=== PATIENT | female | born 1960 | race Caucasian/White ===

== ENCOUNTER → 2016-11-29 | Outpatient (CLI) | payer OTHER ==
[~2016-11-29] MED LIST: CALC1TAB10 PO; EPP3/2 IM; GLIP-171 PO; LORA-741 PO; LXP10 PO; METF-384 PO; MULTTAB58 PO; NATE1TAB PO; OMEG12006 PO; SIMV-150 PO
[2016-11-29 12:59] LABS: ESTIMATED AVERAGE GLUCOSE 169 mg/dl; HA1C FLAG Normal (Normal)
== END | disposition home or self-care (01) ==
LOC: C.LABBFT 08:55
PROVIDERS: ATTEND Nurse Practitioner Family
DX: E11.65 Type 2 diabetes mellitus with hyperglycemia (principal)

== ENCOUNTER → 2017-02-12 | Outpatient (CLI) | payer OTHER ==
--- NOTE | 2017-02-17 10:19 | MAMMOGRAPHY REPORT ---
BILATERAL DIGITAL SCREENING MAMMOGRAM TOMOSYNTHESIS WITH CAD: 02/12/2017 CLINICAL HISTORY: Routine screening. Patient has no complaints. TECHNIQUE: Breast tomosynthesis in addition to standard 2D mammography was performed. Current study was also evaluated with a Computer Aided Detection (CAD) system. COMPARISON: Comparison is made to exams dated: 02/28/2015 mammogram, 02/24/2014 mammogram, 02/23/2013 m ammogram, 02/13/2012 mammogram, 07/22/2011 stereotactic biopsy, and 02/15/2011 mammogram - [facility]. BREAST COMPOSITION: There are scattered areas of fibroglandular density in both breasts. FINDINGS: There is a stable baljeet-shaped metallic biopsy marker in the 6:00 anterior left breast. Diff use scattered benign-appearing round and punctate microcalcifications. Mild vascular calcification i n the breasts. No new suspicious mass, architectural distortion or cluster of microcalcifications is seen. IMPRESSION: ACR BI-RADS CATEGORY 1: NEGATIVE There is no mammographic evidence of malignancy. A 1 year screening mammogram is recommended. The pa tient will receive written notification of the results. Approximately 10% of breast cancers are not detected with mammography. A negative mammographic report should not delay biopsy if a clinically suggestive mass is present. Lou Saldana M.D. ay/:02/12/2017 16:16:39 [email or web address] Architect: Caprice BAUTISTA(Dai)([place]), [facility] letter sent: Normal 1/2 BI-RADS Code: ACR BI-RADS Category 1: Negative
== END | disposition home or self-care (01) ==
LOC: C.MAMM 15:56
PROVIDERS: ATTEND Family Medicine
DX: Z12.31 Encounter for screening mammogram for malignant neoplasm of breast (principal)

== ENCOUNTER → 2017-07-12 | Outpatient (CLI) | payer OTHER ==
[2017-07-12 10:24] LABS: ESTIMATED AVERAGE GLUCOSE 148 mg/dl; HA1C FLAG Normal (Normal)
[2017-07-12 10:32] LABS: ALT/SGPT 28 U/L (12-78); AST/SGOT 13 U/L (15-37); BLOOD UREA NITROGEN 12 mg/dl (7-18); BUN/CREATININE RATIO 29.3 (10-20); CALCIUM 8.9 mg/dl (8.5-10.1); CARBON DIOXIDE 29 mmol/L (21-32); CHLORIDE 104 mmol/L (98-107); CREATININE 0.41 mg/dl (0.60-1.20); GLUCOSE 143 mg/dl (70-99); POTASSIUM 4.5 mmol/L (3.5-5.1); SODIUM 140 mmol/L (136-145)
[2017-07-12 10:43] LABS: ALB/GLOB RATIO 0.9 (0.9-2); ALKALINE PHOSPHATASE 57 U/L (45-117); CHOLESTEROL 225 mg/dl (0-200); CHOLESTEROL/HDL RATIO 5.4; HDL CHOLESTEROL 42 mg/dl; LDL CHOLESTEROL CALCULATED 156 mg/dl; TRIGLYCERIDES 135 mg/dl (0-150); VERY LOW DENSITY LIPOPROT CALC 27 mg/dl
[2017-07-12 11:11] LABS: CREATININE RANDOM URINE 65.6 mg/dl
[2017-07-12 11:21] LABS: RATIO 14.7 mcg/mg (0-30.0)
== END | disposition home or self-care (01) ==
LOC: C.LAB 08:25
PROVIDERS: ATTEND Nurse Practitioner Family
DX: E11.65 Type 2 diabetes mellitus with hyperglycemia (principal)

== ENCOUNTER 2018-12-13 06:47 | Inpatient (IN) ==
[2018-12-13] MEDS ORDERED: EPINEPHRINE ADULT AUTO-INJECT 0.3 MG SYR IM STA (06:57)
[2018-12-13] MEDS ORDERED: SODIUM CHLORIDE 0.9% 250 ML IV PRN (06:57)
[2018-12-13] MEDS ORDERED: EPINEPHRINE ADULT AUTO-INJECT 0.3 MG SYR IM ONE (06:57)
[2018-12-13] MEDS ORDERED: DiphenhydrAMINE HCL 50 MG/ML VIAL IV STA (06:58)
[2018-12-13] MEDS ORDERED: methylPREDNISolone 125 MG/2 ML VIAL IV STA (06:58)
[2018-12-13] MEDS ORDERED: SODIUM CHLORIDE 0.9% 1000ML 1,000 ML IV ONE (06:59)
[2018-12-13] MEDS ORDERED: LORazepam 2 MG/4 ML VIAL ONE (07:02)
[2018-12-13] MEDS ORDERED: LIDOCAINE/EPINEPHRINE 1% 20 ML VIAL INFIL ONE (07:18)
[2018-12-13] MEDS ORDERED: XYLOCAINE 1%/SOD BICARB 20 ML VIAL INFIL ONE (07:18)
[2018-12-13] MEDS ORDERED: LIDO/EPINEPHRINE/SOD BICARB 20 ML VIAL ONE (07:20)
[2018-12-13] MEDS ORDERED: XYLOCAINE 1%/SOD BICARB 20 ML VIAL ONE (07:20)
[2018-12-13] MEDS ORDERED: PHENYLEPHRINE 1% NA SPR 15 ML BTL ONE (07:21)
[2018-12-13] MEDS ORDERED: LIDOCAINE HCL 4% w/ Afrin 4 ML VIAL ONE (07:23)
[2018-12-13] MEDS ORDERED: LIDOCAINE 2% JELLY 5 ML TUBE ONE (07:24)
[2018-12-13 07:25] LABS: Basophils # (auto) 0.05 K/uL (0-0.2); Basophils % (auto) 0.7 %; Eosinophils # (auto) 0.48 K/uL (0-0.5); Eosinophils % (auto) 6.4 %; Hematocrit (blood only) 43.4 % (37-47); Hemoglobin 15.3 g/dL (12.0-16.0); Immature Granulocytes # (auto) 0.02 K/uL (0.00-0.02); Immature Granulocytes % (auto) 0.3 %; Lymphocytes # (auto) 2.51 K/uL (1.2-3.4); Lymphocytes % (auto) 33.2 %; Mean Corpuscular Hgb Conc 35.3 g/dL (32-36); Mean Corpuscular Volume 92.1 fL (80-100); Monocytes # (auto) 0.65 K/uL (0.11-0.59); Monocytes % (auto) 8.6 %; Neutrophils # (auto) 3.84 K/uL (1.4-6.5); Neutrophils % (auto) 50.8 %; Platelet Count 274 K/uL (130-400); RDW Coefficient of Variation 12.1 % (11.5-14.5); RDW Standard Deviation 41.4 fL (36.4-46.3); Red Blood Count 4.71 M/uL (4.2-5.4); White Blood Count 7.55 K/uL (4.8-10.8)
[2018-12-13] MEDS ORDERED: KETAMINE HCL INJ 50 MG/ML 10 ML VIAL ONE (07:32)
[2018-12-13] MEDS ORDERED: KETAMINE HCL INJ 50 MG/ML 10 ML VIAL IV STA (07:32)
[2018-12-13] MEDS ORDERED: fentaNYL citrate 100 MCG/2 ML VIAL ONE (07:38)
[2018-12-13 07:41] LABS: Albumin Level 3.5 gm/dl (3.4-5.0); BUN Creatinine Ratio 21.1 (10-20); Calcium 8.8 mg/dl (8.5-10.1); Creatinine Clr Calc Pharmacy 126.6 ml/min; Est GFR (African American) 124.5; Est GFR (Non-African American) 107.4
[2018-12-13] MEDS ORDERED: RAPID SEQUENCE INDUCTION BAG ONE (07:48)
[2018-12-13 07:51] LABS: Albumin Globulin Ratio 0.9 (0.9-2); Bilirubin,Total 0.5 mg/dl (0.2-1); Total Protein 7.5 gm/dl (6.4-8.2)
--- NOTE | 2018-12-13 08:04 | XRay Report ---
XR chest 1V portable HISTORY: 58 years-old Female weakness acute weakness with respiratory failure COMPARISON: Chest and rib radiographs 06/25/2015 TECHNIQUE: Portable AP view of the chest FINDINGS: Endotracheal tube overlies the midline, 4.7 cm superior to the jagdeep. Cardiac silhouette is normal i n size. Mild pulmonary vascular congestion. No pneumothorax, pleural effusion or overt pulmonary mihaela a. Minimal left basilar opacities. Degenerative changes of the shoulders and spine. IMPRESSION: 1. Endotracheal tube terminates 4.7 cm superior to the jagdeep. 2. Mild pulmonary vascular congestion without overt pulmonary edema. 3. Subsegmental left basilar are suggestive of atelectasis or pneumonitis. The above report was generated using voice recognition software. It may contain grammatical, syntax o r spelling errors. Electronically signed by: Kalpesh Pascla M.D. 12/13/2018 8:03 AM
--- NOTE | 2018-12-13 08:05 | Critical Care Consultation ---
Date of Consultation December 13, 2018 Assessment & Plan (1) Angioedema: Reason Critically Ill: 58-year-old female with angioedema requiring intubation to secure the airway. Neuro - [facility] ICU: Negative -Pt post Ketamine, Propofol, Ativan, Benadryl administration -Will continue to monitor mental status -continue home escitalopram for depression and anxiety. Cardiac - -Epinephrine given in the ED -EKG with sinus tach, qtc 462 -Tachycardic as a result, will continue to monitor -Home use of pravastatin, continue pt on simvastatin Respiratory -Significant angioedema in oropharynx, tongue swollen -Intubated for respiratory support -Chest XR- endotrach tube in place, mild pulm vasc congestion withOUT overt pulm edema, atelectasis vs. pneumonitis -O2 supplementation as needed GI - -NPO -PEG/OG tube as needed RENAL/LYTES - -No significant electrolyte derangement currently. -Replace lytes as needed. -On IV Fluids -Strict I/Os - -No concerns at this time -Goetz placed ENDO - -Suspect dx of DM as pt's home meds include many diabetic meds -HgA1c today pending, past >6.5 with elevated glucose levels. -ICU protocol for hyperglycemia -No Hx of thyroid disease HEME - -Normal WBC, H/H, platelets -S/P FFP administration in the ED for angioedema -Will continue to monitor ID - -No concerns for infection at this point -Will continue to monitor INTEGUMENTARY - -No signs of urtacaria, other skin rashes -Will continue to monitor LINES/IV ACCESS - PIVsx2 intact. ET tube in place. Goetz DVT PROPHYLAXIS - SCDs Thank you for allowing us to be part of this patient's care. Please refer to Dr. Robles's documentation for any further recommendations. Supervising Physician Co-Signing Physician Notes Dr. Poole was resident physician during care of patient. I separately evaluated patient for henry portions of the history and the exam. I was present during the critical portion of medical decision making, and I discussed the case with the resident. I generally agree with the findings and plan. Patient is critically ill due to angioedema and impending respiratory failure. Per report in the ED she was mildly responsive to epinephrine and initial treatments. She was started on FFP. Giving the significant size of the tongue we proceeded with securing the airway especially with the possibility of subsequent rebound edema or reaction to blood products. She is not on an MAXI inhibitor. There is a reported history of 1 prior episode of angioedema. I have advised the she will need follow-up with an speech communication instructor. I have personally spent 40 minutes of critical care time in the direct management of this patient. This is a life/limb threatening event. This includes time spent evaluating patient, direct bedside care, chart review, placing orders, interpretation of diagnostic studies, discussion with consultants, patient, and/or family members regarding treatment decisions, as well as other required patient management activities. This time is exclusive of all separately billable procedures, and teaching time and separate from and in addition to any other critical care service time. History of Present Illness Reason for Consultation: Angioedema Requesting Physician: Dr. Joy History of Present Illness HPI obtained from patient, pt's and medical records. Pt is a 58yo female with PMHx of DM Type II, depression and anxiety as well as recurrent UTIs who presents today with a swollen tongue. states that pt has had a prior episode of tongue swelling about 2-3 years ago and was NOT intubated at that time. States she got better with the use of "some pills". States that the pt had been complaining all night of a swollen tongue, and had been repeatedly taking Benadryl tabs overnight for allergic symptoms. Of note, they had eaten out last night and states she had wings and Chipotle, but was not complaining of allergic symptoms around that time. Believes this all started overnight. He states she finally said at about 6AM this morning that she was going to the ED and was able to drive herself there. states that she was recently on antibiotics for a UTI and also was just switched to Trulicity for her DM and he believes she was due for her second shot this past Friday. states there was no facial swelling that he noticed this morning but also notes that for the past week or so, she has been complaining that her ring finger has been swollen. Pt currently not on an MAXI. Pt required intubation in the ED to secure her airway. ROS as below. Allergies: Lisinopril, penicillin, sulfa abx, aripiprazole, cefuroxime, clavulanic acid, paroxetine, antihistamines. Fam Hx: Noncontributory PMHx: DMII, Depression, Anxiety, Recurrent UTIs SH: Nonsmoker, social drinker, does NOT use recreational drugs. . Allergies Allergy/AdvReac Type Severity Reaction Status Date / Time lisinopril Allergy Severe SHORTNESS Verified 12/13/18 08:35 OF BREATH Penicillins Allergy Intermediate Verified 12/13/18 08:35 amoxicillin Allergy Unknown . Unverified 12/13/18 08:35 aripiprazole Allergy Unknown unknown Verified 12/13/18 08:35 cefuroxime Allergy Unknown . Unverified 12/13/18 08:35 clavulanic acid Allergy Unknown . Unverified 12/13/18 08:35 paroxetine Allergy Unknown . Unverified 12/13/18 08:35 Sulfa (Sulfonamide Allergy Unknown Verified 12/13/18 08:35 Antibiotics) ANTIHISTAMINES Allergy Intermediate TACHYCARDIA Uncoded 12/13/18 08:35 Home Medications Home Medications Medication Instructions Recorded Confirmed Type aspirin [Aspirin Low Dose] 81 mg PO DAILY 12/13/18 12/13/18 History calcium carbonate-vitamin D3 1,000 tab PO BID 12/13/18 12/13/18 History [Calcium 500 + D (D3)] conjugated estrogens [Premarin] 1 applic TOPICAL DIRECTED 12/13/18 12/13/18 History dulaglutide [Trulicity] 1.5 mg SUBCUT WK 12/13/18 12/13/18 History epinephrine [EpiPen] 0.3 mg IM Q3H PRN 12/13/18 12/13/18 History escitalopram oxalate 10 mg PO DAILY 12/13/18 12/13/18 History liraglutide [Victoza 3-David] 1.8 mg SUBCUT DAILY 12/13/18 12/13/18 History metformin 100 mg PO BID 12/13/18 12/13/18 History pravastatin 10 mg PO HS 12/13/18 12/13/18 History Patient History Medical History Family history of NC (myocardial infarction) Biopsy of breast (Resolved 01/13/12) Deviated nasal septum (Chronic 01/13/12) Rib fracture (Resolved) Social History Feels Safe at Home: Yes Smoking Status: Never smoker Review of Systems Ear, Nose, Mouth, Throat: + dysphagia Respiratory: no dyspnea Cardiovascular: no chest pain, no palpitations and no edema Gastrointestinal: no nausea and no vomiting Neurologic: + abnormal speech Physical Exam Vital Signs (Past 24 Hours): Last Vital Signs Temp 36.7 C 12/13/18 06:52 Pulse 99 H 12/13/18 07:36 Resp 18 12/13/18 07:36 BP 169/94 H 12/13/18 07:36 Pulse Ox 100 12/13/18 07:36 General: Alert, oriented when seen in ED HEENT: NC/AT, oropharynx moist with swollen tongue, associated dysarthria. Chest: Nontender to palpation. CV: RRR, Normal s1, s2. No murmurs appreciated Resp: Breath sounds clear bilaterally on front, no increased effort of breathing. Abdomen: Soft, nontender. No guarding. No organomegaly appreciated. Extremities: No edema in lower extremities bilaterally. Skin: No signs of urticaria or other rashes noted. Results & Data Laboratory Results Laboratory Results - last 24 hr 12/13/18 12/13/18 12/13/18 07:00 07:00 07:00 WBC 7.55 RBC 4.71 Hgb 15.3 Hct 43.4 MCV 92.1 MCH 32.5 MCHC 35.3 RDW Std Deviation 41.4 RDW Coeff of Tamela 12.1 Plt Count 274 MPV 9.0 Immature Gran % (Auto) 0.3 Neut % (Auto) 50.8 Lymph % (Auto) 33.2 Andrews % (Auto) 8.6 Eos % (Auto) 6.4 Baso % (Auto) 0.7 Immature Gran # (Auto) 0.02 Neut # (Auto) 3.84 Lymph # (Auto) 2.51 Andrews # (Auto) 0.65 H Eos # (Auto) 0.48 Baso # (Auto) 0.05 Sodium 137 Potassium 4.0 Chloride 105 Carbon Dioxide 28 Anion Gap 4.0 BUN 10 Creatinine 0.49 L Est Cr Clr Drug Dosing 126.6 Est GFR ( Amer) 124.5 Est GFR (Non-Af Amer) 107.4 BUN/Creatinine Ratio 21.1 H Glucose 165 H Calcium 8.8 Total Bilirubin 0.5 AST 26 ALT 63 Alkaline Phosphatase 63 Total Protein 7.5 Albumin 3.5 Globulin 4.0 Albumin/Globulin Ratio 0.9 TSH 1.460 Urine Color Urine Appearance Urine pH Ur Specific [place] Urine Protein Urine Glucose (UA) Urine Ketones Urine Blood Urine Nitrite Urine Bilirubin Urine Urobilinogen Ur Leukocyte Esterase Urine RBC Urine WBC Ur Epithelial Cells Amorphous Sediment Urine Bacteria Blood Type A Negative Antibody Screen NEGATIVE 12/13/18 08:20 WBC RBC Hgb Hct MCV MCH MCHC RDW Std Deviation RDW Coeff of Tamela Plt Count MPV Immature Gran % (Auto) Neut % (Auto) Lymph % (Auto) Andrews % (Auto) Eos % (Auto) Baso % (Auto) Immature Gran # (Auto) Neut # (Auto) Lymph # (Auto) Andrews # (Auto) Eos # (Auto) Baso # (Auto) Sodium Potassium Chloride Carbon Dioxide Anion Gap BUN Creatinine Est Cr Clr Drug Dosing Est GFR ( Amer) Est GFR (Non-Af Amer) BUN/Creatinine Ratio Glucose Calcium Total Bilirubin AST ALT Alkaline Phosphatase Total Protein Albumin Globulin Albumin/Globulin Ratio TSH Urine Color Yellow Urine Appearance Clear Urine pH 7.5 Ur Specific [place] 1.010 Urine Protein 1+ H Urine Glucose (UA) 2+ H Urine Ketones Negative Urine Blood Trace H Urine Nitrite Negative Urine Bilirubin Negative Urine Urobilinogen Negative Ur Leukocyte Esterase Negative Urine RBC 0-4 Urine WBC 0-5 Ur Epithelial Cells 0-5 Amorphous Sediment Present H Urine Bacteria Negative Blood Type Antibody Screen Medications Administered Home Medications aspirin [Aspirin Low Dose] 81 mg PO DAILY 12/13/18 [History Confirmed 12/13/18] calcium carbonate-vitamin D3 [Calcium 500 + D (D3)] 1,000 tab PO BID 12/13/18 [History Confirmed 12/13/18] conjugated estrogens [Premarin] 1 applic TOPICAL DIRECTED 12/13/18 [History Confirmed 12/13/18] dulaglutide [Trulicity] 1.5 mg SUBCUT WK 12/13/18 [History Confirmed 12/13/18] epinephrine [EpiPen] 0.3 mg IM Q3H PRN 12/13/18 [History Confirmed 12/13/18] escitalopram oxalate 10 mg PO DAILY 12/13/18 [History Confirmed 12/13/18] liraglutide [Victoza 3-David] 1.8 mg SUBCUT DAILY 12/13/18 [History Confirmed 12/13/18] metformin 100 mg PO BID 12/13/18 [History Confirmed 12/13/18] pravastatin 10 mg PO HS 12/13/18 [History Confirmed 12/13/18] Active Medications Sodium Chloride (Nss) 250 mls @ 15 mls/hr IV .[id number] PRN PRN Reason: For Transfusion Stop: 01/12/19 06:56 Propofol (Diprivan) 1,000 mg in 100 mls @ 2.139 mls/hr IV .Q24H CATARINO; Protocol Stop: 12/16/18 08:14
--- NOTE | 2018-12-13 08:09 | Procedure Note ---
Procedure Note Date of Service December 13, 2018 Procedure Date: Noted above Procedure: Endotracheal intubation Pre-procedure Diagnosis: Angioedema significant tongue swelling Post-procedure Diagnosis: same as above Prior to Procedure: Informed Consent: emergent Attending Staff: Anay Robles DO Indications: Patient is a 58-year-old female with impending airway closure secondary to angioedema The identity of the patient was confirmed and a bedside time out was performed. Description of Procedure: Patient was evaluated and required intubation for impending respiratory failure. The patient's left nare was anesthetized with 4% lidocaine and Afrin and was serially dilated with nasal trumpet's. Patient was given nebulized lidocaine treatment and with 50 mcg fentanyl and 50 mg ketamine IV x2 with the assistance of Dr. Joy utilizing a glide scope we were able to visualize the glottic opening with a bronchoscope were able to successfully pass a 7.5 endotracheal tube securing at 26 cm to the teeth. Positioning was confirmed with the bronchoscope and the tube was secured. End-tidal CO2 was positive, chest x-ray was obtained which showed proper endotracheal tube placement as well. Complications: None Findings: Significant edema of the arytenoids and glottic opening as well as massive edema of the tongue. Specimens: Not applicable Estimated blood loss: Zero
[2018-12-13 08:34] LABS: Appearance Urine Clear (Clear); Bilirubin Urine Negative (Negative); Blood Urine Trace (Negative); Color Urine Yellow; Glucose Urine UA 2+ (Negative); Ketones Urine Negative (Negative); Leukocyte Esterase Urine Negative (Negative); Nitrite Urine Negative (Negative); Urobilinogen Urine Negative (Negative); pH Urine 7.5 (4.5-7.5)
[2018-12-13 08:52] LABS: Protein Urine 1+ (Negative)
[2018-12-13 09:06] LABS: Amorphous Sediment Urine Present (None Prsent); Bacteria Urine Negative (Negative); Epithelial Cell Urine 0-5 /lpf (0-5); RBC Urine 0-4 /hpf (0-4); WBC Urine 0-5 /hpf (0-5)
[2018-12-13] MEDS: PROPOFOL 1,000 MG/100 ML VIAL IV SCH ×3 (09:45→22:46)
[2018-12-13] MEDS ORDERED: GLUCOSE 40% GEL 15 GM TUBE PO PRN (10:07)
[2018-12-13] MEDS ORDERED: CARBOHYDRATES FOR HYPOGLYCEMIA PO PRN (10:07)
[2018-12-13] MEDS ORDERED: ICU PROTOCOL FOR HYPERGLYCEMIA PRN ×2 (10:07)
[2018-12-13] MEDS ORDERED: DEXTROSE 50% 50 ML SYRINGE IV PRN (10:07)
[2018-12-13] MEDS ORDERED: ICU ELECTROLYTE REPLACEMENT PROTOCOL PRN (10:07)
[2018-12-13] MEDS ORDERED: GLUCAGON FOR INJ 1 MG VIAL SQ PRN (10:07)
[2018-12-13] MEDS ORDERED: GLUCOSE 10 TABS/TUBE PO PRN (10:07)
[2018-12-13] MEDS: fentaNYL citrate 100 MCG/2 ML VIAL IV PRN ×5 (10:28→21:15)
[2018-12-13] MEDS ORDERED: NSS + 20MEQ KCL 20 MEQ/1,000 ML BAG IV SCH (10:30)
[2018-12-13] MEDS: ESCITALOPRAM OXALATE 10 MG TAB PO SCH (10:31)
[2018-12-13] MEDS ORDERED: INSULIN ASPART 100 UNITS/ML 3 ML PEN SC SCH (11:30)
[2018-12-13] MEDS ORDERED: fentaNYL citrate 100 MCG/2 ML VIAL IV ONE (13:09)
[2018-12-13] MEDS ORDERED: SODIUM CHLORIDE 0.9% INJ 10 ML VIAL IV ONE (13:09)
[2018-12-13] MEDS ORDERED: MIDAZOLAM HCL 5 MG/ML VIAL IV ONE (13:09)
[2018-12-13] MEDS ORDERED: LORazepam 2 MG/4 ML VIAL IV ONE (13:09)
[2018-12-13] MEDS ORDERED: VECURONIUM BROMIDE 10 MG VIAL IV ONE (13:09)
[2018-12-13] MEDS ORDERED: SEVERE STRESS LEVEL ONE (15:37)
[2018-12-13] MEDS ORDERED: DC ALL PREVIOUSLY ORDERED DIABETES MEDS ONE (15:46)
[2018-12-13] MEDS ORDERED: INSULIN PROTOCOL GOAL RANGE ONE (15:46)
[2018-12-13] MEDS: INSULIN ASPART 100 UNITS/ML 3 ML PEN SC SCH ×2 (16:24→19:08)
[2018-12-13] MEDS ORDERED: INSULIN REGULAR 250 UNITS in SODIUM CHLORIDE 0.9% 247.5 ML IV SCH (16:30)
[2018-12-13] MEDS ORDERED: NovoLIN-R BOLUS FROM BAG IV ONE (16:30)
--- NOTE | 2018-12-13 16:40 | XRay Report ---
KUB CLINICAL HISTORY: Confirm placement of NG tube COMPARISON STUDY: Chest radiograph performed earlier today. FINDINGS: The tip of the endotracheal tube is 2 cm above the jagdeep. The tip of the nasogastric tube is within the gastric antrum. Cardiac size is normal. Mediastinal contours are normal. No pneumothora x is identified. Left basilar opacity persists. IMPRESSION: 1. Tip of nasogastric tube within the gastric antrum. 2. Tip of endotracheal tube 2 cm above the jagdeep. 3. Left basilar opacity which may reflect atelectasis or consolidation. Electronically signed by: Mitul Carr M.D. 12/13/2018 4:39 PM
[2018-12-13] MEDS ORDERED: PEPTAMEN INTENSE VHP 1.0 CAL 1,000 ML BAG GT PRN (17:47)
[2018-12-13] MEDS: PROPOFOL 1,000 MG/100 ML VIAL IV PRN ×2 (19:07→22:45)
--- NOTE | 2018-12-13 19:17 | History & Physical Report ---
Date of Service December 13, 2018 Assessment & Plan (1) Angioedema: Possible offending drugs include Trulicity, antibiotics recently taken for UTI currently unknown Possibly related to, spicy chicken Patient has received Solu-Medrol, epinephrine, pantoprazole, Benadryl at the ER Currently is intubated Mechanical ventilator management per regulatory agency director Will need to be referred to pre certification specialist upon discharge Patient already taking cetirizine daily (2) Diabetes type 2, controlled: Possible angioedema reaction to Trulicity which was recently started Also uses metformin chronically (3) Fibromyalgia: On Lexapro and Ativan as needed (4) History of angioedema: Patient has multiple allergies including lisinopril, penicillins, cefuroxime, sulfa She will need to be referred to an pre certification specialist upon discharge History of Present Illness Primary Care Provider: NO PCP 58-year-old female with history of diabetes, fibromyalgia, angioedema, presenting with tongue and mouth swelling. History obtained from patient's at the bedside as the patient is intubated. Patient apparently was started on Trulicity last week and had a repeat dose last Friday. Apparently she is also been treated with antibiotics last week. Exact name of which the patient's could not recall. Patient also had some chicken wings that are spicy last night but did not have any immediate reaction. This morning the patient noticed increased tongue swelling and mouth swelling. She self medicated with Benadryl but with no relief. She then drove herself to the emergency room. At the ER the patient was intubated by regulatory agency director Dr. Valenzuela for protection My exam the patient is intubated, sedated with propofol, not in distress. Allergies Allergy/AdvReac Type Severity Reaction Status Date / Time lisinopril Allergy Severe SHORTNESS Verified 12/13/18 08:35 OF BREATH Penicillins Allergy Intermediate Verified 12/13/18 08:35 amoxicillin Allergy Unknown . Unverified 12/13/18 08:35 aripiprazole Allergy Unknown unknown Verified 12/13/18 08:35 cefuroxime Allergy Unknown . Unverified 12/13/18 08:35 clavulanic acid Allergy Unknown . Unverified 12/13/18 08:35 paroxetine Allergy Unknown . Unverified 12/13/18 08:35 Sulfa (Sulfonamide Allergy Unknown Verified 12/13/18 08:35 Antibiotics) ANTIHISTAMINES Allergy Intermediate TACHYCARDIA Uncoded 12/13/18 08:35 Home Medications Home Medications Medication Instructions Recorded Confirmed Type aspirin [Aspirin Low Dose] 81 mg PO DAILY 12/13/18 12/13/18 History calcium carbonate-vitamin D3 1,000 tab PO BID 12/13/18 12/13/18 History [Calcium 500 + D (D3)] conjugated estrogens [Premarin] 1 applic TOPICAL DIRECTED 12/13/18 12/13/18 History dulaglutide [Trulicity] 1.5 mg SUBCUT WK 12/13/18 12/13/18 History epinephrine [EpiPen] 0.3 mg IM Q3H PRN 12/13/18 12/13/18 History escitalopram oxalate 10 mg PO DAILY 12/13/18 12/13/18 History liraglutide [Victoza 3-David] 1.8 mg SUBCUT DAILY 12/13/18 12/13/18 History metformin 100 mg PO BID 12/13/18 12/13/18 History pravastatin 10 mg PO HS 12/13/18 12/13/18 History Past Med/Surg History Medical History Family history of MS (myocardial infarction) Biopsy of breast (Resolved 01/13/12) Deviated nasal septum (Chronic 01/13/12) Rib fracture (Resolved) Social History Preferred Language: Dutch Communication Ability: Sedated Communication Ability Comment: Baseline able to read/write/communicate effectively Customer Support Specialist Required: No Beliefs That Will Affect Care: None Current Living Situation: Spouse Other Information That Helps Us Care for You: No Feels Safe at Home: Yes Smoking Status: Never smoker Hx Alcohol Use: Yes Hx Substance Use: No Review of Systems As per patient's : Constitutional- no fever; no weight loss Eyes- no acute visual changes ENT-positive as noted above Pulmonary-positive as noted above Cardiac- no chest pain, no palpitations, no orthopnea, no dependent edema GI- no nausea, no vomiting, no diarrhea, no melena, no hematochezia - no dysuria, no hematuria Musculoskeletal- no arthralgias, no myalgias Derm- no rashes, no new skin lesions, no changing skin lesions Hematologic- no unusual bruising, no unusual bleeding Lymphatics- no adenopathy Endocrine- no polyuria or polydipsia; no heat or cold intolerance Neuro- no headaches, no focal neurologic symptoms Psych- no anxiety, no depression Physical Exam Vital Signs (Past 24 Hours): Last Vital Signs Temp 37.0 C 12/13/18 15:00 Pulse 79 12/13/18 17:35 Resp 18 12/13/18 17:35 BP 104/53 L 12/13/18 16:01 Pulse Ox 97 12/13/18 17:35 Physical Exam: General-sedated, on mechanical ventilator, intubated Head- atraumatic Eyes- anicteric ENT-positive tongue swelling, significant Neck- supple, no JVD, no adenopathy, no thyromegaly; carotids +2/2, no bruits appreciated Lungs- clear to auscultation bilaterally, no rales/wheezes Heart- normal rate, regular rhythm; no murmur, no gallop, no rub appreciated Abdomen- normal bowel sounds, nondistended, soft, nontender, no masses or hepatosplenomegaly Extremities- no pretibial edema, no calf tenderness; peripheral pulses intact Neuro-sedated Skin- warm & dry Results & Data Laboratory Results Laboratory Results - last 24 hr 12/13/18 12/13/18 12/13/18 07:00 07:00 07:00 WBC 7.55 RBC 4.71 Hgb 15.3 Hct 43.4 MCV 92.1 MCH 32.5 MCHC 35.3 RDW Std Deviation 41.4 RDW Coeff of Tamela 12.1 Plt Count 274 MPV 9.0 Immature Gran % (Auto) 0.3 Neut % (Auto) 50.8 Lymph % (Auto) 33.2 [place] % (Auto) 8.6 Eos % (Auto) 6.4 Baso % (Auto) 0.7 Immature Gran # (Auto) 0.02 Neut # (Auto) 3.84 Lymph # (Auto) 2.51 [place] # (Auto) 0.65 H Eos # (Auto) 0.48 Baso # (Auto) 0.05 Sodium 137 Potassium 4.0 Chloride 105 Carbon Dioxide 28 Anion Gap 4.0 BUN 10 Creatinine 0.49 L Est Cr Clr Drug Dosing 126.6 Est GFR ( Amer) 124.5 Est GFR (Non-Af Amer) 107.4 BUN/Creatinine Ratio 21.1 H Glucose 165 H POC Glucose Calcium 8.8 Total Bilirubin 0.5 AST 26 ALT 63 Alkaline Phosphatase 63 Total Protein 7.5 Albumin 3.5 Globulin 4.0 Albumin/Globulin Ratio 0.9 TSH 1.460 Urine Color Urine Appearance Urine pH Ur Specific [place] Urine Protein Urine Glucose (UA) Urine Ketones Urine Blood Urine Nitrite Urine Bilirubin Urine Urobilinogen Ur Leukocyte Esterase Urine RBC Urine WBC Ur Epithelial Cells Amorphous Sediment Urine Bacteria Nasal Screen MRSA (PCR) Blood Type A Negative Antibody Screen NEGATIVE 12/13/18 12/13/18 12/13/18 08:20 09:50 11:36 WBC RBC Hgb Hct MCV MCH MCHC RDW Std Deviation RDW Coeff of Tamela Plt Count MPV Immature Gran % (Auto) Neut % (Auto) Lymph % (Auto) [place] % (Auto) Eos % (Auto) Baso % (Auto) Immature Gran # (Auto) Neut # (Auto) Lymph # (Auto) [place] # (Auto) Eos # (Auto) Baso # (Auto) Sodium Potassium Chloride Carbon Dioxide Anion Gap BUN Creatinine Est Cr Clr Drug Dosing Est GFR ( Amer) Est GFR (Non-Af Amer) BUN/Creatinine Ratio Glucose POC Glucose 315 H Calcium Total Bilirubin AST ALT Alkaline Phosphatase Total Protein Albumin Globulin Albumin/Globulin Ratio TSH Urine Color Yellow Urine Appearance Clear Urine pH 7.5 Ur Specific [place] 1.010 Urine Protein 1+ H Urine Glucose (UA) 2+ H Urine Ketones Negative Urine Blood Trace H Urine Nitrite Negative Urine Bilirubin Negative Urine Urobilinogen Negative Ur Leukocyte Esterase Negative Urine RBC 0-4 Urine WBC 0-5 Ur Epithelial Cells 0-5 Amorphous Sediment Present H Urine Bacteria Negative Nasal Screen MRSA (PCR) Negative Blood Type Antibody Screen 12/13/18 12/13/18 12/13/18 14:53 17:30 18:32 WBC RBC Hgb Hct MCV MCH MCHC RDW Std Deviation RDW Coeff of Tamela Plt Count MPV Immature Gran % (Auto) Neut % (Auto) Lymph % (Auto) [place] % (Auto) Eos % (Auto) Baso % (Auto) Immature Gran # (Auto) Neut # (Auto) Lymph # (Auto) [place] # (Auto) Eos # (Auto) Baso # (Auto) Sodium Potassium Chloride Carbon Dioxide Anion Gap BUN Creatinine Est Cr Clr Drug Dosing Est GFR ( Amer) Est GFR (Non-Af Amer) BUN/Creatinine Ratio Glucose POC Glucose 271 H 214 H 181 H Calcium Total Bilirubin AST ALT Alkaline Phosphatase Total Protein Albumin Globulin Albumin/Globulin Ratio TSH Urine Color Urine Appearance Urine pH Ur Specific [place] Urine Protein Urine Glucose (UA) Urine Ketones Urine Blood Urine Nitrite Urine Bilirubin Urine Urobilinogen Ur Leukocyte Esterase Urine RBC Urine WBC Ur Epithelial Cells Amorphous Sediment Urine Bacteria Nasal Screen MRSA (PCR) Blood Type Antibody Screen (1) Angioedema Encounter type: initial encounter Qualified Code(s): T78.3XXA - Angioneurotic edema, initial encounter
[2018-12-14] MEDS: fentaNYL citrate 100 MCG/2 ML VIAL IV PRN ×4 (01:02→21:25)
[2018-12-14] MEDS ORDERED: DiphenhydrAMINE HCL 50 MG/ML VIAL IV ONE (01:56)
[2018-12-14] MEDS: PROPOFOL 1,000 MG/100 ML VIAL IV PRN ×5 (04:24→23:35)
[2018-12-14 05:34] LABS: BUN Creatinine Ratio 28.4 (10-20); Calcium 8.7 mg/dl (8.5-10.1); Creatinine Clr Calc Pharmacy 124.4 ml/min; Est GFR (African American) 122.8; Phosphorus 3.1 mg/dl (2.5-4.9); Potassium 3.1 mmol/L (3.5-5.1)
[2018-12-14] MEDS: POTASSIUM CHLORIDE / WTR 10 MEQ/100 ML PLCT IV SCH ×2 (06:30→07:32)
--- NOTE | 2018-12-14 07:47 | Emergency Department Note ---
Entered by Denisse Romero acting as a scribe for History of Present Illness General Chief complaint: Allergic Reaction Stated complaint: TONGUE SWOLLEN, HARD TO BREATHE Time Seen by Provider: 12/13/18 06:54 Source: patient History of Present Illness Onset (ago): hour(s) (this morning ) Location: mouth (throat ) Severity: similar to prior episodes Pain Consistency: + other (episode) Quality: + other (allergic reaction) Associated symptoms: + other (positive swollen tongue; positive inability to swallow) Treatments prior to arrival: other (Benadryl) The patient is a 58 year old female who presents to the Emergency Room with comp laints of an episode of an allergic reaction that began this morning. The patient states that her tongue is swollen and she is unable to swallow. The patient states that this is similar to a prior episode of allergic reaction with lisinopril. She states that she took Benadryl prior to arrival. The patient states that she began Trulicity 2 weeks ago, and states that she has one dose per week. Home Medications Home Medications Medication Instructions Recorded Confirmed Type aspirin [Aspirin Low Dose] 81 mg PO DAILY 12/13/18 12/13/18 History calcium carbonate-vitamin D3 1,000 tab PO BID 12/13/18 12/13/18 History [Calcium 500 + D (D3)] conjugated estrogens [Premarin] 1 applic TOPICAL DIRECTED 12/13/18 12/13/18 History dulaglutide [Trulicity] 1.5 mg SUBCUT WK 12/13/18 12/13/18 History epinephrine [EpiPen] 0.3 mg IM Q3H PRN 12/13/18 12/13/18 History escitalopram oxalate 10 mg PO DAILY 12/13/18 12/13/18 History liraglutide [Victoza 3-David] 1.8 mg SUBCUT DAILY 12/13/18 12/13/18 History metformin 100 mg PO BID 12/13/18 12/13/18 History pravastatin 10 mg PO HS 12/13/18 12/13/18 History Allergies Allergy/AdvReac Type Severity Reaction Status Date / Time lisinopril Allergy Severe SHORTNESS Verified 12/13/18 08:35 OF BREATH Penicillins Allergy Intermediate Verified 12/13/18 08:35 amoxicillin Allergy Unknown . Unverified 12/13/18 08:35 aripiprazole Allergy Unknown unknown Verified 12/13/18 08:35 cefuroxime Allergy Unknown . Unverified 12/13/18 08:35 clavulanic acid Allergy Unknown . Unverified 12/13/18 08:35 paroxetine Allergy Unknown . Unverified 12/13/18 08:35 Sulfa (Sulfonamide Allergy Unknown Verified 12/13/18 08:35 Antibiotics) ANTIHISTAMINES Allergy Intermediate TACHYCARDIA Uncoded 12/13/18 08:35 Past Med/Surg History Medical History Family history of HI (myocardial infarction) Biopsy of breast (Resolved 01/13/12) Deviated nasal septum (Chronic 01/13/12) Rib fracture (Resolved) Social History Preferred Language: Congolese Communication Ability: Sedated Communication Ability Comment: Baseline able to read/write/communicate effectively Live In Housekeeper Required: No Beliefs That Will Affect Care: None Current Living Situation: Spouse Other Information That Helps Us Care for You: No Feels Safe at Home: Yes Smoking Status: Never smoker Hx Alcohol Use: Yes Hx Substance Use: No Review of Systems See HPI for pertinent positives & negatives. and A total of 10 systems reviewed and were otherwise negative Physical Exam Vital Signs Vital Signs - 24 hr 12/13/18 07:45 12/13/18 07:51 12/13/18 07:54 Temperature Temperature Source End-Tidal CO2 44 Pulse Rate 106 H 106 H 108 H Pulse Rate [Right] Pulse Rate from SpO2 Sensor 107 H Pulse Rhythm [Right] Pulse Strength [Right] Respiratory Rate 9 L 15 17 Respiratory Effort / Characteristics Respiratory Depth Respiratory Pattern Blood Pressure 135/70 Blood Pressure [Left Arm] Blood Pressure Mean 91 Blood Pressure Mean [Left Arm] Blood Pressure Position [Left Arm] Pulse Oximetry 99 100 100 Oxygen Delivery Method Oxygen Flow Rate 15 Fraction of Inspired Oxygen 40 SaO2/FiO2 Ratio 12/13/18 07:58 12/13/18 08:00 12/13/18 08:01 Temperature Temperature Source End-Tidal CO2 49 50 50 Pulse Rate 98 H 97 H 97 H Pulse Rate [Right] Pulse Rate from SpO2 Sensor 98 H 97 H 97 H Pulse Rhythm [Right] Pulse Strength [Right] Respiratory Rate Respiratory Effort / Characteristics Respiratory Depth Respiratory Pattern Blood Pressure 135/70 135/66 Blood Pressure [Left Arm] Blood Pressure Mean 91 89 Blood Pressure Mean [Left Arm] Blood Pressure Position [Left Arm] Pulse Oximetry 94 95 95 Oxygen Delivery Method Oxygen Flow Rate Fraction of Inspired Oxygen SaO2/FiO2 Ratio 12/13/18 08:15 12/13/18 08:16 12/13/18 08:30 Temperature Temperature Source End-Tidal CO2 50 47 33 Pulse Rate 92 H 92 H 86 Pulse Rate [Right] Pulse Rate from SpO2 Sensor 93 H 92 H 86 Pulse Rhythm [Right] Pulse Strength [Right] Respiratory Rate Respiratory Effort / Characteristics Respiratory Depth Respiratory Pattern Blood Pressure 113/69 Blood Pressure [Left Arm] Blood Pressure Mean 83 Blood Pressure Mean [Left Arm] Blood Pressure Position [Left Arm] Pulse Oximetry 98 98 98 Oxygen Delivery Method Oxygen Flow Rate Fraction of Inspired Oxygen SaO2/FiO2 Ratio 12/13/18 08:31 12/13/18 08:45 12/13/18 08:46 Temperature Temperature Source End-Tidal CO2 46 45 34 Pulse Rate 86 83 84 Pulse Rate [Right] Pulse Rate from SpO2 Sensor 86 83 83 Pulse Rhythm [Right] Pulse Strength [Right] Respiratory Rate Respiratory Effort / Characteristics Respiratory Depth Respiratory Pattern Blood Pressure 104/70 103/65 Blood Pressure [Left Arm] Blood Pressure Mean 81 77 Blood Pressure Mean [Left Arm] Blood Pressure Position [Left Arm] Pulse Oximetry 98 98 98 Oxygen Delivery Method Oxygen Flow Rate Fraction of Inspired Oxygen SaO2/FiO2 Ratio 12/13/18 08:47 12/13/18 08:56 12/13/18 08:57 Temperature Temperature Source End-Tidal CO2 55 55 Pulse Rate 82 106 H 99 H Pulse Rate [Right] Pulse Rate from SpO2 Sensor 105 H 99 H Pulse Rhythm [Right] Pulse Strength [Right] Respiratory Rate 12 Respiratory Effort / Characteristics Respiratory Depth Respiratory Pattern Blood Pressure 103/65 145/82 H Blood Pressure [Left Arm] Blood Pressure Mean 77 103 Blood Pressure Mean [Left Arm] Blood Pressure Position [Left Arm] Pulse Oximetry 98 96 96 Oxygen Delivery Method Oxygen Flow Rate Fraction of Inspired Oxygen SaO2/FiO2 Ratio 12/13/18 09:00 12/13/18 09:01 12/13/18 09:15 Temperature Temperature Source End-Tidal CO2 55 55 56 Pulse Rate 98 H 99 H 105 H Pulse Rate [Right] Pulse Rate from SpO2 Sensor 98 H 99 H 105 H Pulse Rhythm [Right] Pulse Strength [Right] Respiratory Rate Respiratory Effort / Characteristics Respiratory Depth Respiratory Pattern Blood Pressure 130/65 Blood Pressure [Left Arm] Blood Pressure Mean 86 Blood Pressure Mean [Left Arm] Blood Pressure Position [Left Arm] Pulse Oximetry 96 97 97 Oxygen Delivery Method Oxygen Flow Rate Fraction of Inspired Oxygen SaO2/FiO2 Ratio 12/13/18 09:16 12/13/18 09:17 12/13/18 09:30 Temperature Temperature Source End-Tidal CO2 56 56 53 Pulse Rate 102 H 101 H 99 H Pulse Rate [Right] Pulse Rate from SpO2 Sensor 102 H 101 H 99 H Pulse Rhythm [Right] Pulse Strength [Right] Respiratory Rate Respiratory Effort / Characteristics Respiratory Depth Respiratory Pattern Blood Pressure 155/87 H Blood Pressure [Left Arm] Blood Pressure Mean 109 Blood Pressure Mean [Left Arm] Blood Pressure Position [Left Arm] Pulse Oximetry 97 97 97 Oxygen Delivery Method Oxygen Flow Rate Fraction of Inspired Oxygen SaO2/FiO2 Ratio 12/13/18 09:31 12/13/18 09:32 12/13/18 09:56 Temperature Temperature Source End-Tidal CO2 53 53 Pulse Rate 101 H 100 H 98 H Pulse Rate [Right] Pulse Rate from SpO2 Sensor 101 H 101 H Pulse Rhythm [Right] Pulse Strength [Right] Respiratory Rate Respiratory Effort / Characteristics Respiratory Depth Respiratory Pattern Blood Pressure 145/82 H 158/82 H Blood Pressure [Left Arm] Blood Pressure Mean 103 107 Blood Pressure Mean [Left Arm] Blood Pressure Position [Left Arm] Pulse Oximetry 97 97 98 Oxygen Delivery Method Oxygen Flow Rate Fraction of Inspired Oxygen SaO2/FiO2 Ratio 12/13/18 10:01 12/13/18 10:16 12/13/18 10:26 Temperature Temperature Source End-Tidal CO2 48 47 Pulse Rate 99 H 101 H 101 H Pulse Rate [Right] Pulse Rate from SpO2 Sensor 101 H 101 H Pulse Rhythm [Right] Pulse Strength [Right] Respiratory Rate Respiratory Effort / Characteristics Respiratory Depth Respiratory Pattern Blood Pressure 164/82 H 179/90 H 164/83 H Blood Pressure [Left Arm] Blood Pressure Mean 109 119 110 Blood Pressure Mean [Left Arm] Blood Pressure Position [Left Arm] Pulse Oximetry 99 99 99 Oxygen Delivery Method Oxygen Flow Rate Fraction of Inspired Oxygen SaO2/FiO2 Ratio 12/13/18 10:31 12/13/18 10:55 12/13/18 11:00 Temperature Temperature Source End-Tidal CO2 48 49 51 Pulse Rate 97 H 90 90 Pulse Rate [Right] Pulse Rate from SpO2 Sensor 97 H 90 Pulse Rhythm [Right] Pulse Strength [Right] Respiratory Rate 14 Respiratory Effort / Characteristics Respiratory Depth Respiratory Pattern Blood Pressure 158/78 H Blood Pressure [Left Arm] Blood Pressure Mean 104 Blood Pressure Mean [Left Arm] Blood Pressure Position [Left Arm] Pulse Oximetry 98 97 97 Oxygen Delivery Method Oxygen Flow Rate Fraction of Inspired Oxygen 40 SaO2/FiO2 Ratio 12/13/18 11:01 12/13/18 11:21 12/13/18 11:31 Temperature Temperature Source End-Tidal CO2 51 50 Pulse Rate 90 92 H Pulse Rate [Right] Pulse Rate from SpO2 Sensor 90 92 H Pulse Rhythm [Right] Pulse Strength [Right] Respiratory Rate Respiratory Effort / Characteristics Mechanically Ventilated Respiratory Depth Normal Respiratory Pattern Regular Blood Pressure 113/60 135/63 Blood Pressure [Left Arm] Blood Pressure Mean 77 87 Blood Pressure Mean [Left Arm] Blood Pressure Position [Left Arm] Pulse Oximetry 97 98 Oxygen Delivery Method Mechanical Vent Oxygen Flow Rate Fraction of Inspired Oxygen 40 SaO2/FiO2 Ratio 12/13/18 11:49 12/13/18 12:00 12/13/18 12:01 Temperature 37.0 C Temperature Source Axillary End-Tidal CO2 48 47 Pulse Rate 90 Pulse Rate [Right] Pulse Rate from SpO2 Sensor 90 Pulse Rhythm [Right] Pulse Strength [Right] Respiratory Rate Respiratory Effort / Characteristics Respiratory Depth Respiratory Pattern Blood Pressure 142/73 H Blood Pressure [Left Arm] Blood Pressure Mean 96 Blood Pressure Mean [Left Arm] Blood Pressure Position [Left Arm] Pulse Oximetry 98 Oxygen Delivery Method Oxygen Flow Rate Fraction of Inspired Oxygen 40 SaO2/FiO2 Ratio 12/13/18 12:02 12/13/18 13:00 12/13/18 13:01 Temperature Temperature Source End-Tidal CO2 49 46 46 Pulse Rate 88 78 80 Pulse Rate [Right] Pulse Rate from SpO2 Sensor 88 79 80 Pulse Rhythm [Right] Pulse Strength [Right] Respiratory Rate Respiratory Effort / Characteristics Respiratory Depth Respiratory Pattern Blood Pressure 101/56 L Blood Pressure [Left Arm] Blood Pressure Mean 71 Blood Pressure Mean [Left Arm] Blood Pressure Position [Left Arm] Pulse Oximetry 98 98 98 Oxygen Delivery Method Oxygen Flow Rate Fraction of Inspired Oxygen SaO2/FiO2 Ratio 12/13/18 14:00 12/13/18 14:37 12/13/18 15:00 Temperature 37.0 C Temperature Source End-Tidal CO2 46 51 41 Pulse Rate 79 77 82 Pulse Rate [Right] Pulse Rate from SpO2 Sensor 79 82 Pulse Rhythm [Right] Pulse Strength [Right] Respiratory Rate 14 Respiratory Effort / Characteristics Respiratory Depth Respiratory Pattern Blood Pressure 111/56 L 135/71 Blood Pressure [Left Arm] Blood Pressure Mean 74 92 Blood Pressure Mean [Left Arm] Blood Pressure Position [Left Arm] Pulse Oximetry 98 98 99 Oxygen Delivery Method Oxygen Flow Rate Fraction of Inspired Oxygen 40 SaO2/FiO2 Ratio 12/13/18 16:00 12/13/18 16:01 12/13/18 16:02 Temperature Temperature Source End-Tidal CO2 41 37 37 Pulse Rate 74 77 Pulse Rate [Right] Pulse Rate from SpO2 Sensor 74 77 Pulse Rhythm [Right] Pulse Strength [Right] Respiratory Rate Respiratory Effort / Characteristics Respiratory Depth Respiratory Pattern Blood Pressure 104/53 L Blood Pressure [Left Arm] Blood Pressure Mean 70 Blood Pressure Mean [Left Arm] Blood Pressure Position [Left Arm] Pulse Oximetry 98 97 Oxygen Delivery Method Oxygen Flow Rate Fraction of Inspired Oxygen 40 SaO2/FiO2 Ratio 12/13/18 17:00 12/13/18 17:01 12/13/18 17:35 Temperature Temperature Source End-Tidal CO2 39 38 38 Pulse Rate 72 73 79 Pulse Rate [Right] Pulse Rate from SpO2 Sensor 72 73 Pulse Rhythm [Right] Pulse Strength [Right] Respiratory Rate 18 Respiratory Effort / Characteristics Respiratory Depth Respiratory Pattern Blood Pressure 98/50 L Blood Pressure [Left Arm] Blood Pressure Mean 66 Blood Pressure Mean [Left Arm] Blood Pressure Position [Left Arm] Pulse Oximetry 97 97 97 Oxygen Delivery Method Oxygen Flow Rate Fraction of Inspired Oxygen 40 SaO2/FiO2 Ratio 12/13/18 18:00 12/13/18 18:01 12/13/18 19:00 Temperature Temperature Source End-Tidal CO2 38 38 37 Pulse Rate 74 73 73 Pulse Rate [Right] Pulse Rate from SpO2 Sensor 74 73 73 Pulse Rhythm [Right] Pulse Strength [Right] Respiratory Rate Respiratory Effort / Characteristics Respiratory Depth Respiratory Pattern Blood Pressure 98/51 L 93/52 L Blood Pressure [Left Arm] Blood Pressure Mean 66 65 Blood Pressure Mean [Left Arm] Blood Pressure Position [Left Arm] Pulse Oximetry 97 97 97 Oxygen Delivery Method Oxygen Flow Rate Fraction of Inspired Oxygen SaO2/FiO2 Ratio 12/13/18 19:51 12/13/18 20:00 12/13/18 22:00 Temperature 36.7 C Temperature Source Axillary End-Tidal CO2 37 38 37 Pulse Rate 77 Pulse Rate [Right] 78 84 Pulse Rate from SpO2 Sensor Pulse Rhythm [Right] Regular Regular Pulse Strength [Right] Normal Normal Respiratory Rate 18 18 18 Respiratory Effort / Characteristics Mechanically Ventilated Mechanically Ventilated Respiratory Depth Normal Normal Respiratory Pattern Regular Regular Blood Pressure Blood Pressure [Left Arm] 99/51 L 117/60 Blood Pressure Mean Blood Pressure Mean [Left Arm] 67 79 Blood Pressure Position [Left Arm] Lying Lying Pulse Oximetry 97 95 97 Oxygen Delivery Method Mechanical Vent Mechanical Vent Oxygen Flow Rate Fraction of Inspired Oxygen 40 30 30 SaO2/FiO2 Ratio 316 323 12/13/18 23:01 12/14/18 00:00 12/14/18 01:35 Temperature 36.8 C Temperature Source Axillary End-Tidal CO2 34 37 33 Pulse Rate 79 81 Pulse Rate [Right] 79 Pulse Rate from SpO2 Sensor Pulse Rhythm [Right] Regular Pulse Strength [Right] Normal Respiratory Rate 18 18 18 Respiratory Effort / Characteristics Mechanically Ventilated Respiratory Depth Normal Respiratory Pattern Regular Blood Pressure Blood Pressure [Left Arm] 114/57 L Blood Pressure Mean Blood Pressure Mean [Left Arm] 76 Blood Pressure Position [Left Arm] Lying Pulse Oximetry 97 97 98 Oxygen Delivery Method Mechanical Vent Oxygen Flow Rate Fraction of Inspired Oxygen 30 30 30 SaO2/FiO2 Ratio 323 12/14/18 02:00 12/14/18 04:00 12/14/18 05:27 Temperature 36.8 C Temperature Source Axillary End-Tidal CO2 36 36 Pulse Rate 82 Pulse Rate [Right] 79 77 Pulse Rate from SpO2 Sensor Pulse Rhythm [Right] Regular Regular Pulse Strength [Right] Normal Normal Respiratory Rate 18 18 18 Respiratory Effort / Characteristics Mechanically Ventilated Mechanically Ventilated Respiratory Depth Normal Normal Respiratory Pattern Regular Regular Blood Pressure Blood Pressure [Left Arm] 112/55 L 108/53 L Blood Pressure Mean Blood Pressure Mean [Left Arm] 74 71 Blood Pressure Position [Left Arm] Lying Lying Pulse Oximetry 97 98 99 Oxygen Delivery Method Mechanical Vent Mechanical Vent Oxygen Flow Rate Fraction of Inspired Oxygen 30 30 30 SaO2/FiO2 Ratio 323 326 12/14/18 06:00 12/14/18 07:37 Temperature Temperature Source End-Tidal CO2 38 Pulse Rate 86 Pulse Rate [Right] 81 Pulse Rate from SpO2 Sensor Pulse Rhythm [Right] Regular Pulse Strength [Right] Normal Respiratory Rate 18 18 Respiratory Effort / Characteristics Mechanically Ventilated Respiratory Depth Normal Respiratory Pattern Regular Blood Pressure Blood Pressure [Left Arm] 115/59 L Blood Pressure Mean Blood Pressure Mean [Left Arm] 77 Blood Pressure Position [Left Arm] Lying Pulse Oximetry 98 98 Oxygen Delivery Method Mechanical Vent Oxygen Flow Rate Fraction of Inspired Oxygen 30 30 SaO2/FiO2 Ratio 326 GENERAL: Awake, alert, well-appearing, in no distress HENT: Normocephalic, atraumatic. Right oropharynx obscured by large amount of angioedema to the tongue. The tongue is deviated superiorly and to the left. EYES: Normal conjunctiva. Sclera non-icteric. NECK: Supple. No nuchal rigidity. FROM. No masses. RESPIRATORY: Clear to auscultation. No wheezes. No rales. Normal respiratory effort. CARDIAC: Normal rate. Normal rhythm. No murmurs. No rubs. Extremities warm and well perfused. Pulses equal. No JVD. GI: Soft, non-distended. No tenderness to palpation. No rebound or guarding. No masses. RECTAL: Deferred. MUSCULOSKELETAL: Atraumatic. Chest examination reveals no tenderness. The back is symmetrical on inspection without obvious abnormality. There is no CVA tenderness to palpation. No joint edema. LOWER EXTREMITIES: Calves are equal size bilaterally and non-tender. No edema. No discoloration. NEURO: Normal sensorium. No sensory or motor deficits noted. Procedures Procedural Sedation Indication: other (angioedema) ASA Class: IV Time of Last PO Intake: 21:00 Preparation: camera operator applied, pulse oximeter, capnometry used, supplemental O2 applied, reversal agents at bedside, suction/airway equipment at bedside and IV secured Fentanyl: IV Fentanyl dose (mcg): 10 Midazolam: IV Midazolam dose (mg): 6 Ketamine: IV Ketamine dose (mg): 140 Patient Tolerated Procedure: well Complications: none Interventions: intubation Course 0655: Past medical records reviewed. The patient was evaluated in room A12B, and a complete history and physical examination were performed. 0711: I discussed the case with Dr. Robles-Tower Hand who states that he will come evaluate the patient. 0725: Dr. Robles-Tower Hand is at bedside. 0755: I discussed the case with Dr. Vj Amaya who agreed to accept the patient for further evaluation. Consultations Consultation #1: I discussed the case with Dr. Vj Amaya who agreed to accept the patient for further evaluation. Time: 07:55 Administered Medications Escitalopram Oxalate (Lexapro) 15 mg PO QAM [facility] Stop: 01/12/19 10:06 Last Admin: 12/13/18 10:31 Dose: Not Given Documented by: [id number] Fentanyl Citrate (Fentanyl Citrate) 50 mcg IV Q2H PRN PRN Reason: Moderate Pain (4,5,6) Stop: 12/27/18 10:06 Last Admin: 12/14/18 01:02 Dose: 50 mcg Documented by: [id number] Admin: 12/13/18 21:15 Dose: 50 mcg Documented by: [id number] Admin: 12/13/18 16:27 Dose: 50 mcg Documented by: [id number] Admin: 12/13/18 14:33 Dose: 50 mcg Documented by: [id number] Admin: 12/13/18 12:28 Dose: 50 mcg Documented by: [id number] Admin: 12/13/18 10:28 Dose: 50 mcg Documented by: [id number] Propofol (Diprivan) 1,000 mg in 100 mls @ 21.39 mls/hr IV .Q4H41M PRN; Protocol PRN Reason: Sedation Stop: 12/16/18 10:06 Last Titration: 12/14/18 06:55 Dose: 50 mcg/kg/min, 21.4 mls/hr Documented by: [id number] Cosigned by: [id number] Admin: 12/14/18 04:24 Dose: 50 mcg/kg/min, 21.4 mls/hr Documented by: [id number] Cosigned by: [id number] Titration: 12/14/18 04:24 Dose: 0 mcg/kg/min, 0 mls/hr Documented by: [id number] Cosigned by: [id number] Admin: 12/13/18 22:45 Dose: 50 mcg/kg/min, 21.4 mls/hr Documented by: [id number] Cosigned by: [id number] Titration: 12/13/18 22:45 Dose: 50 mcg/kg/min, 21.4 mls/hr Documented by: [id number] Cosigned by: [id number] Admin: 12/13/18 19:07 Dose: 50 mcg/kg/min, 21.4 mls/hr Documented by: [id number] Cosigned by: [id number] Potassium Chloride/Sodium Chloride (Normal Saline W/20 Meq Kcl) 20 meq in 1,000 mls @ 15 mls/hr IV .Q24H [facility] Stop: 01/12/19 10:29 Last Admin: 12/13/18 10:36 Dose: 15 mls/hr Documented by: [id number] Insulin Human Regular 250 (units/ Sodium Chloride) 250 mls @ 2.8 mls/hr IV .Q24H [facility]; Protocol Stop: 01/12/19 16:29 Last Titration: 12/14/18 06:55 Dose: 2.2 units/hr, 2.2 mls/hr Documented by: [id number] Cosigned by: [id number] Titration: 12/14/18 06:26 Dose: 2.2 units/hr, 2.2 mls/hr Documented by: [id number] Cosigned by: [id number] Titration: 12/14/18 04:30 Dose: 2.2 units/hr, 2.2 mls/hr Documented by: [id number] Cosigned by: [id number] Titration: 12/14/18 02:30 Dose: 2.2 units/hr, 2.2 mls/hr Documented by: [id number] Cosigned by: [id number] Titration: 12/14/18 00:30 Dose: 2.2 units/hr, 2.2 mls/hr Documented by: [id number] Cosigned by: [id number] Titration: 12/13/18 23:30 Dose: 2.2 units/hr, 2.2 mls/hr Documented by: [id number] Cosigned by: [id number] Titration: 12/13/18 22:30 Dose: 2.2 units/hr, 2.2 mls/hr Documented by: [id number] Cosigned by: [id number] Titration: 12/13/18 21:30 Dose: 2.2 units/hr, 2.2 mls/hr Documented by: [id number] Cosigned by: [id number] Titration: 12/13/18 19:30 Dose: 2.8 units/hr, 2.8 mls/hr Documented by: [id number] Cosigned by: [id number] Titration: 12/13/18 18:45 Dose: 2.8 units/hr, 2.8 mls/hr Documented by: [id number] Cosigned by: [id number] Titration: 12/13/18 17:30 Dose: 2.8 units/hr, 2.8 mls/hr Documented by: [id number] Cosigned by: [id number] Admin: 12/13/18 16:23 Dose: 2.8 units/hr, 2.8 mls/hr Documented by: [id number] Cosigned by: [id number] Potassium Chloride (K Stoney / Wtr) 10 meq in 100 mls @ 100 mls/hr IV Q1H [facility] Stop: 12/14/18 08:19 Last Admin: 12/14/18 07:32 Dose: 100 mls/hr Documented by: [id number] Infusion: 12/14/18 07:30 Dose: 100 mls/hr Documented by: [id number] Admin: 12/14/18 06:30 Dose: 100 mls/hr Documented by: [id number] Insulin Aspart (Novolog Flexpen) 0 units SC [facility] Stop: 01/12/19 17:59 Last Admin: 12/13/18 19:08 Dose: Not Given Documented by: [id number] Cosigned by: [id number] Admin: 12/13/18 16:24 Dose: Not Given Documented by: [id number] Nutritional Formula (Peptamen Intense Vhp) 1,000 ml GT UD PRN; Protocol PRN Reason: PROTOCOL Stop: 01/12/19 17:46 Last Admin: 12/13/18 21:15 Dose: 1,000 ml Documented by: [id number] Discontinued Medications Diphenhydramine HCl (Benadryl) 50 mg IV NOW STA Stop: 12/13/18 06:59 Last Admin: 12/13/18 07:08 Dose: 50 mg Documented by: [id number] Diphenhydramine HCl (Benadryl) 50 mg IV NOW ONE Stop: 12/14/18 01:57 Last Admin: 12/14/18 02:31 Dose: 50 mg Documented by: [id number] Epinephrine HCl (Epipen) 0.3 mg IM NOW STA Stop: 12/13/18 06:58 Last Admin: 12/13/18 07:02 Dose: 0.3 mg Documented by: [id number] Epinephrine HCl (Epipen) Confirm Administered Dose 0.3 mg IM .STK-MED ONE Stop: 12/13/18 06:58 Last Admin: 12/13/18 10:33 Dose: Not Given Documented by: [id number] Fentanyl Citrate (Fentanyl Citrate) Confirm Administered Dose 100 mcg .ROUTE .STK-MED ONE Stop: 12/13/18 07:39 Last Increment: 12/13/18 08:19 Dose: 50 mcg Documented by: [id number] Sodium Chloride (Nss 1000ml) 1,000 mls @ 999 mls/hr IV .Q1H1M ONE Stop: 12/13/18 07:59 Last Infusion: 12/13/18 08:18 Dose: 0 mls/hr Documented by: [id number] Admin: 12/13/18 07:08 Dose: 999 mls/hr Documented by: [id number] Ranitidine HCl 50 mg/ Dextrose 102 mls @ 200 mls/hr IV NOW STA Stop: 12/13/18 07:29 Last Infusion: 12/13/18 08:01 Dose: 0 mls/hr Documented by: [id number] Admin: 12/13/18 07:30 Dose: 200 mls/hr Documented by: [id number] Propofol (Diprivan) 1,000 mg in 100 mls @ 8.556 mls/hr IV .[id number] [facility]; Protocol Stop: 12/16/18 08:14 Last Titration: 12/13/18 19:08 Dose: 0 mcg/kg/min, 0 mls/hr Documented by: [id number] Admin: 12/13/18 13:52 Dose: 50 mcg/kg/min, 21.4 mls/hr Documented by: [id number] Cosigned by: [id number] Titration: 12/13/18 13:52 Dose: 50 mcg/kg/min, 21.4 mls/hr Documented by: [id number] Cosigned by: [id number] Titration: 12/13/18 10:30 Dose: 50 mcg/kg/min, 21.4 mls/hr Documented by: [id number] Titration: 12/13/18 10:25 Dose: 45 mcg/kg/min, 19.3 mls/hr Documented by: [id number] Titration: 12/13/18 10:20 Dose: 40 mcg/kg/min, 17.1 mls/hr Documented by: [id number] Titration: 12/13/18 10:15 Dose: 35 mcg/kg/min, 15 mls/hr Documented by: [id number] Titration: 12/13/18 10:10 Dose: 30 mcg/kg/min, 12.8 mls/hr Documented by: [id number] Titration: 12/13/18 10:05 Dose: 25 mcg/kg/min, 10.7 mls/hr Documented by: [id number] Titration: 12/13/18 10:00 Dose: 20 mcg/kg/min, 8.6 mls/hr Documented by: [id number] Titration: 12/13/18 09:55 Dose: 15 mcg/kg/min, 6.4 mls/hr Documented by: [id number] Titration: 12/13/18 09:50 Dose: 10 mcg/kg/min, 4.3 mls/hr Documented by: [id number] Admin: 12/13/18 09:45 Dose: 5 mcg/kg/min, 2.1 mls/hr Documented by: [id number] Cosigned by: [id number] Insulin Aspart (Novolog Flexpen) 0 units SC ACHS [facility] Stop: 01/12/19 11:29 Last Admin: 12/13/18 12:26 Dose: 5 units Documented by: [id number] Cosigned by: [id number] Insulin Human Regular (Novolin R Bolus From Bag) 3 units IV 1630 ONE Stop: 12/13/18 16:31 Last Admin: 12/13/18 16:24 Dose: 3 units Documented by: [id number] Cosigned by: [id number] Ketamine HCl (Ketalar Steri-Vial) Confirm Administered Dose 500 mg .ROUTE .STK- MED ONE Stop: 12/13/18 07:33 Last Admin: 12/13/18 10:33 Dose: Not Given Documented by: [id number] Ketamine HCl (Ketalar Steri-Vial) 285 mg IV NOW STA Stop: 12/13/18 07:33 Last Admin: 12/13/18 08:20 Dose: Not Given Documented by: [id number] Lidocaine HCl (Buffered Lidocaine 1%) 20 ml INFIL NOW ONE Stop: 12/13/18 07:19 Last Admin: 12/13/18 10:34 Dose: Not Given Documented by: [id number] Lidocaine HCl (Buffered Lidocaine 1%) Confirm Administered Dose 20 ml .ROUTE .STK-MED ONE Stop: 12/13/18 07:21 Last Admin: 12/13/18 10:33 Dose: Not Given Documented by: [id number] Lidocaine HCl (Afrin W/Lidocaine 4%) Confirm Administered Dose 4 ml .ROUTE .STK- MED ONE Stop: 12/13/18 07:24 Last Admin: 12/13/18 08:21 Dose: 4 ml Documented by: [id number] Lidocaine HCl (Xylocaine Jely 2%) Confirm Administered Dose 5 ml .ROUTE .STK-MED ONE Stop: 12/13/18 07:25 Last Admin: 12/13/18 10:33 Dose: Not Given Documented by: [id number] Lidocaine/Epinephrine (Xylocaine/Epinephrine 1%) 20 ml INFIL NOW ONE Stop: 12/13/18 07:19 Last Admin: 12/13/18 10:34 Dose: Not Given Documented by: [id number] Lidocaine/Epinephrine (Buffered Xylocaine/Epinephrine 1%) Confirm Administered Dose 20 ml .ROUTE .STK-MED ONE Stop: 12/13/18 07:21 Last Admin: 12/13/18 08:22 Dose: 20 ml Documented by: [id number] Lorazepam (Ativan) Confirm Administered Dose 2 mg .ROUTE .STK-MED ONE Stop: 12/13/18 07:03 Last Admin: 12/13/18 07:08 Dose: 0.5 mg Documented by: [id number] Methylprednisolone (Solumedrol) 125 mg IV NOW STA Stop: 12/13/18 06:59 Last Admin: 12/13/18 07:08 Dose: 125 mg Documented by: [id number] Miscellaneous () Confirm Administered Dose 1 ea .ROUTE .STK-MED ONE Stop: 12/13/18 07:49 Last Admin: 12/13/18 10:33 Dose: Not Given Documented by: [id number] Miscellaneous (Insulin Protocol Severe Stress) 1 ea N/A ONE ONE; Protocol Stop: 12/13/18 15:38 Last Admin: 12/13/18 16:25 Dose: Not Given Documented by: [id number] Miscellaneous (Insulin Protocol Goal Range) 1 ea N/A ONE ONE; Protocol Stop: 12/13/18 15:47 Last Admin: 12/13/18 16:25 Dose: Not Given Documented by: [id number] Miscellaneous Information (Dc All Previously Ordered Diabetes Meds) 1 ea N/A ONE ONE Stop: 12/13/18 15:47 Last Admin: 12/13/18 16:25 Dose: Not Given Documented by: [id number] Phenylephrine HCl (Joey-Synephrine 1% (Extra Strength)) Confirm Administered Dose 225 sprays .ROUTE .STK-MED ONE Stop: 12/13/18 07:22 Last Admin: 12/13/18 08:22 Dose: 225 sprays Documented by: [id number] Medical Decision Making Differential Diagnosis Differential diagnosis: Etiologies such as allergic reaction, anaphylaxis, urticaria, Ackerman-Bulmaro syndrome, toxic epidermal necrolysis, erythema multiforme, cellulitis, as well as others were entertained. Medical Records Attestation: I reviewed the patient's medical records. Home Medications Current Medication List: was personally reviewed by me Laboratory Data Attestation: I reviewed the patient's lab results. Result diagrams: 12/13/18 07:00 12/14/18 04:41 Lab Results 12/13/18 12/13/18 12/13/18 Range/Units 07:00 07:00 07:00 WBC 7.55 (4.8-10.8) K/uL RBC 4.71 (4.2-5.4) M/uL Hgb 15.3 (12.0-16.0) g/dL Hct 43.4 (37-47) % MCV 92.1 (80-100) fL MCH 32.5 (25-34) pg MCHC 35.3 (32-36) g/dL RDW Std Deviation 41.4 (36.4-46.3) fL RDW Coeff of Tamela 12.1 (11.5-14.5) % Plt Count 274 (130-400) K/uL MPV 9.0 (7.4-10.4) fL Immature Gran % (Auto) 0.3 % Neut % (Auto) 50.8 % Lymph % (Auto) 33.2 % [place] % (Auto) 8.6 % Eos % (Auto) 6.4 % Baso % (Auto) 0.7 % Immature Gran # (Auto) 0.02 (0.00-0.02) K/uL Neut # (Auto) 3.84 (1.4-6.5) K/uL Lymph # (Auto) 2.51 (1.2-3.4) K/uL [place] # (Auto) 0.65 H (0.11-0.59) K/uL Eos # (Auto) 0.48 (0-0.5) K/uL Baso # (Auto) 0.05 (0-0.2) K/uL Sodium 137 (136-145) mmol/L Potassium 4.0 (3.5-5.1) mmol/L Chloride 105 (98-107) mmol/L Carbon Dioxide 28 (21-32) mmol/L Anion Gap 4.0 (3-11) BUN 10 (7-18) mg/dl Creatinine 0.49 L (0.6-1.2) mg/dl Est Cr Clr Drug Dosing 126.6 ml/min Est GFR ( Amer) 124.5 Est GFR (Non-Af Amer) 107.4 BUN/Creatinine Ratio 21.1 H (10-20) Glucose 165 H (70-99) mg/dl POC Glucose (70-99) Calcium 8.8 (8.5-10.1) mg/dl Phosphorus (2.5-4.9) mg/dl Magnesium (1.8-2.4) mg/dl Total Bilirubin 0.5 (0.2-1) mg/dl AST 26 (15-37) U/L ALT 63 (12-78) U/L Alkaline Phosphatase 63 (45-117) U/L Total Protein 7.5 (6.4-8.2) gm/dl Albumin 3.5 (3.4-5.0) gm/dl Globulin 4.0 (2.5-4.0) gm/dl Albumin/Globulin Ratio 0.9 (0.9-2) TSH 1.460 (0.300-4.500) uIu/ml Urine Color Urine Appearance (Clear) Urine pH (4.5-7.5) Ur Specific [place] (1.000-1.030) Urine Protein (Negative) Urine Glucose (UA) (Negative) Urine Ketones (Negative) Urine Blood (Negative) Urine Nitrite (Negative) Urine Bilirubin (Negative) Urine Urobilinogen (Negative) Ur Leukocyte Esterase (Negative) Urine RBC (0-4) /hpf Urine WBC (0-5) /hpf Ur Epithelial Cells (0-5) /lpf Amorphous Sediment (None Prsent) Urine Bacteria (Negative) Nasal Screen MRSA (PCR) (Negative) Blood Type A Negative Antibody Screen NEGATIVE 12/13/18 12/13/18 12/13/18 Range/Units 08:20 09:50 11:36 WBC (4.8-10.8) K/uL RBC (4.2-5.4) M/uL Hgb (12.0-16.0) g/dL Hct (37-47) % MCV (80-100) fL MCH (25-34) pg MCHC (32-36) g/dL RDW Std Deviation (36.4-46.3) fL RDW Coeff of Tamela (11.5-14.5) % Plt Count (130-400) K/uL MPV (7.4-10.4) fL Immature Gran % (Auto) % Neut % (Auto) % Lymph % (Auto) % [place] % (Auto) % Eos % (Auto) % Baso % (Auto) % Immature Gran # (Auto) (0.00-0.02) K/uL Neut # (Auto) (1.4-6.5) K/uL Lymph # (Auto) (1.2-3.4) K/uL [place] # (Auto) (0.11-0.59) K/uL Eos # (Auto) (0-0.5) K/uL Baso # (Auto) (0-0.2) K/uL Sodium (136-145) mmol/L Potassium (3.5-5.1) mmol/L Chloride (98-107) mmol/L Carbon Dioxide (21-32) mmol/L Anion Gap (3-11) BUN (7-18) mg/dl Creatinine (0.6-1.2) mg/dl Est Cr Clr Drug Dosing ml/min Est GFR ( Amer) Est GFR (Non-Af Amer) BUN/Creatinine Ratio (10-20) Glucose (70-99) mg/dl POC Glucose 315 H (70-99) Calcium (8.5-10.1) mg/dl Phosphorus (2.5-4.9) mg/dl Magnesium (1.8-2.4) mg/dl Total Bilirubin (0.2-1) mg/dl AST (15-37) U/L ALT (12-78) U/L Alkaline Phosphatase (45-117) U/L Total Protein (6.4-8.2) gm/dl Albumin (3.4-5.0) gm/dl Globulin (2.5-4.0) gm/dl Albumin/Globulin Ratio (0.9-2) TSH (0.300-4.500) uIu/ml Urine Color Yellow Urine Appearance Clear (Clear) Urine pH 7.5 (4.5-7.5) Ur Specific [place] 1.010 (1.000-1.030) Urine Protein 1+ H (Negative) Urine Glucose (UA) 2+ H (Negative) Urine Ketones Negative (Negative) Urine Blood Trace H (Negative) Urine Nitrite Negative (Negative) Urine Bilirubin Negative (Negative) Urine Urobilinogen Negative (Negative) Ur Leukocyte Esterase Negative (Negative) Urine RBC 0-4 (0-4) /hpf Urine WBC 0-5 (0-5) /hpf Ur Epithelial Cells 0-5 (0-5) /lpf Amorphous Sediment Present H (None Prsent) Urine Bacteria Negative (Negative) Nasal Screen MRSA (PCR) Negative (Negative) Blood Type Antibody Screen 12/13/18 12/13/18 12/13/18 Range/Units 14:53 17:30 18:32 WBC (4.8-10.8) K/uL RBC (4.2-5.4) M/uL Hgb (12.0-16.0) g/dL Hct (37-47) % MCV (80-100) fL MCH (25-34) pg MCHC (32-36) g/dL RDW Std Deviation (36.4-46.3) fL RDW Coeff of Tamela (11.5-14.5) % Plt Count (130-400) K/uL MPV (7.4-10.4) fL Immature Gran % (Auto) % Neut % (Auto) % Lymph % (Auto) % [place] % (Auto) % Eos % (Auto) % Baso % (Auto) % Immature Gran # (Auto) (0.00-0.02) K/uL Neut # (Auto) (1.4-6.5) K/uL Lymph # (Auto) (1.2-3.4) K/uL [place] # (Auto) (0.11-0.59) K/uL Eos # (Auto) (0-0.5) K/uL Baso # (Auto) (0-0.2) K/uL Sodium (136-145) mmol/L Potassium (3.5-5.1) mmol/L Chloride (98-107) mmol/L Carbon Dioxide (21-32) mmol/L Anion Gap (3-11) BUN (7-18) mg/dl Creatinine (0.6-1.2) mg/dl Est Cr Clr Drug Dosing ml/min Est GFR ( Amer) Est GFR (Non-Af Amer) BUN/Creatinine Ratio (10-20) Glucose (70-99) mg/dl POC Glucose 271 H 214 H 181 H (70-99) Calcium (8.5-10.1) mg/dl Phosphorus (2.5-4.9) mg/dl Magnesium (1.8-2.4) mg/dl Total Bilirubin (0.2-1) mg/dl AST (15-37) U/L ALT (12-78) U/L Alkaline Phosphatase (45-117) U/L Total Protein (6.4-8.2) gm/dl Albumin (3.4-5.0) gm/dl Globulin (2.5-4.0) gm/dl Albumin/Globulin Ratio (0.9-2) TSH (0.300-4.500) uIu/ml Urine Color Urine Appearance (Clear) Urine pH (4.5-7.5) Ur Specific [place] (1.000-1.030) Urine Protein (Negative) Urine Glucose (UA) (Negative) Urine Ketones (Negative) Urine Blood (Negative) Urine Nitrite (Negative) Urine Bilirubin (Negative) Urine Urobilinogen (Negative) Ur Leukocyte Esterase (Negative) Urine RBC (0-4) /hpf Urine WBC (0-5) /hpf Ur Epithelial Cells (0-5) /lpf Amorphous Sediment (None Prsent) Urine Bacteria (Negative) Nasal Screen MRSA (PCR) (Negative) Blood Type Antibody Screen 12/13/18 12/13/18 12/13/18 Range/Units 19:40 21:33 22:29 WBC (4.8-10.8) K/uL RBC (4.2-5.4) M/uL Hgb (12.0-16.0) g/dL Hct (37-47) % MCV (80-100) fL MCH (25-34) pg MCHC (32-36) g/dL RDW Std Deviation (36.4-46.3) fL RDW Coeff of Tamela (11.5-14.5) % Plt Count (130-400) K/uL MPV (7.4-10.4) fL Immature Gran % (Auto) % Neut % (Auto) % Lymph % (Auto) % [place] % (Auto) % Eos % (Auto) % Baso % (Auto) % Immature Gran # (Auto) (0.00-0.02) K/uL Neut # (Auto) (1.4-6.5) K/uL Lymph # (Auto) (1.2-3.4) K/uL [place] # (Auto) (0.11-0.59) K/uL Eos # (Auto) (0-0.5) K/uL Baso # (Auto) (0-0.2) K/uL Sodium (136-145) mmol/L Potassium (3.5-5.1) mmol/L Chloride (98-107) mmol/L Carbon Dioxide (21-32) mmol/L Anion Gap (3-11) BUN (7-18) mg/dl Creatinine (0.6-1.2) mg/dl Est Cr Clr Drug Dosing ml/min Est GFR ( Amer) Est GFR (Non-Af Amer) BUN/Creatinine Ratio (10-20) Glucose (70-99) mg/dl POC Glucose 171 H 140 H 128 H (70-99) Calcium (8.5-10.1) mg/dl Phosphorus (2.5-4.9) mg/dl Magnesium (1.8-2.4) mg/dl Total Bilirubin (0.2-1) mg/dl AST (15-37) U/L ALT (12-78) U/L Alkaline Phosphatase (45-117) U/L Total Protein (6.4-8.2) gm/dl Albumin (3.4-5.0) gm/dl Globulin (2.5-4.0) gm/dl Albumin/Globulin Ratio (0.9-2) TSH (0.300-4.500) uIu/ml Urine Color Urine Appearance (Clear) Urine pH (4.5-7.5) Ur Specific [place] (1.000-1.030) Urine Protein (Negative) Urine Glucose (UA) (Negative) Urine Ketones (Negative) Urine Blood (Negative) Urine Nitrite (Negative) Urine Bilirubin (Negative) Urine Urobilinogen (Negative) Ur Leukocyte Esterase (Negative) Urine RBC (0-4) /hpf Urine WBC (0-5) /hpf Ur Epithelial Cells (0-5) /lpf Amorphous Sediment (None Prsent) Urine Bacteria (Negative) Nasal Screen MRSA (PCR) (Negative) Blood Type Antibody Screen 12/13/18 12/14/18 12/14/18 Range/Units 23:29 00:30 02:34 WBC (4.8-10.8) K/uL RBC (4.2-5.4) M/uL Hgb (12.0-16.0) g/dL Hct (37-47) % MCV (80-100) fL MCH (25-34) pg MCHC (32-36) g/dL RDW Std Deviation (36.4-46.3) fL RDW Coeff of Tamela (11.5-14.5) % Plt Count (130-400) K/uL MPV (7.4-10.4) fL Immature Gran % (Auto) % Neut % (Auto) % Lymph % (Auto) % [place] % (Auto) % Eos % (Auto) % Baso % (Auto) % Immature Gran # (Auto) (0.00-0.02) K/uL Neut # (Auto) (1.4-6.5) K/uL Lymph # (Auto) (1.2-3.4) K/uL [place] # (Auto) (0.11-0.59) K/uL Eos # (Auto) (0-0.5) K/uL Baso # (Auto) (0-0.2) K/uL Sodium (136-145) mmol/L Potassium (3.5-5.1) mmol/L Chloride (98-107) mmol/L Carbon Dioxide (21-32) mmol/L Anion Gap (3-11) BUN (7-18) mg/dl Creatinine (0.6-1.2) mg/dl Est Cr Clr Drug Dosing ml/min Est GFR ( Amer) Est GFR (Non-Af Amer) BUN/Creatinine Ratio (10-20) Glucose (70-99) mg/dl POC Glucose 125 H 124 H 114 H (70-99) Calcium (8.5-10.1) mg/dl Phosphorus (2.5-4.9) mg/dl Magnesium (1.8-2.4) mg/dl Total Bilirubin (0.2-1) mg/dl AST (15-37) U/L ALT (12-78) U/L Alkaline Phosphatase (45-117) U/L Total Protein (6.4-8.2) gm/dl Albumin (3.4-5.0) gm/dl Globulin (2.5-4.0) gm/dl Albumin/Globulin Ratio (0.9-2) TSH (0.300-4.500) uIu/ml Urine Color Urine Appearance (Clear) Urine pH (4.5-7.5) Ur Specific [place] (1.000-1.030) Urine Protein (Negative) Urine Glucose (UA) (Negative) Urine Ketones (Negative) Urine Blood (Negative) Urine Nitrite (Negative) Urine Bilirubin (Negative) Urine Urobilinogen (Negative) Ur Leukocyte Esterase (Negative) Urine RBC (0-4) /hpf Urine WBC (0-5) /hpf Ur Epithelial Cells (0-5) /lpf Amorphous Sediment (None Prsent) Urine Bacteria (Negative) Nasal Screen MRSA (PCR) (Negative) Blood Type Antibody Screen 12/14/18 12/14/18 12/14/18 Range/Units 04:35 04:41 06:24 WBC (4.8-10.8) K/uL RBC (4.2-5.4) M/uL Hgb (12.0-16.0) g/dL Hct (37-47) % MCV (80-100) fL MCH (25-34) pg MCHC (32-36) g/dL RDW Std Deviation (36.4-46.3) fL RDW Coeff of Tamela (11.5-14.5) % Plt Count (130-400) K/uL MPV (7.4-10.4) fL Immature Gran % (Auto) % Neut % (Auto) % Lymph % (Auto) % [place] % (Auto) % Eos % (Auto) % Baso % (Auto) % Immature Gran # (Auto) (0.00-0.02) K/uL Neut # (Auto) (1.4-6.5) K/uL Lymph # (Auto) (1.2-3.4) K/uL [place] # (Auto) (0.11-0.59) K/uL Eos # (Auto) (0-0.5) K/uL Baso # (Auto) (0-0.2) K/uL Sodium 141 (136-145) mmol/L Potassium 3.1 L D (3.5-5.1) mmol/L Chloride 105 (98-107) mmol/L Carbon Dioxide 27 (21-32) mmol/L Anion Gap 9.0 (3-11) BUN 15 (7-18) mg/dl Creatinine 0.51 L (0.6-1.2) mg/dl Est Cr Clr Drug Dosing 124.4 ml/min Est GFR ( Amer) 122.8 Est GFR (Non-Af Amer) 106.0 BUN/Creatinine Ratio 28.4 H (10-20) Glucose 114 H (70-99) mg/dl POC Glucose 115 H 113 H (70-99) Calcium 8.7 (8.5-10.1) mg/dl Phosphorus 3.1 (2.5-4.9) mg/dl Magnesium 2.0 (1.8-2.4) mg/dl Total Bilirubin (0.2-1) mg/dl AST (15-37) U/L ALT (12-78) U/L Alkaline Phosphatase (45-117) U/L Total Protein (6.4-8.2) gm/dl Albumin (3.4-5.0) gm/dl Globulin (2.5-4.0) gm/dl Albumin/Globulin Ratio (0.9-2) TSH (0.300-4.500) uIu/ml Urine Color Urine Appearance (Clear) Urine pH (4.5-7.5) Ur Specific [place] (1.000-1.030) Urine Protein (Negative) Urine Glucose (UA) (Negative) Urine Ketones (Negative) Urine Blood (Negative) Urine Nitrite (Negative) Urine Bilirubin (Negative) Urine Urobilinogen (Negative) Ur Leukocyte Esterase (Negative) Urine RBC (0-4) /hpf Urine WBC (0-5) /hpf Ur Epithelial Cells (0-5) /lpf Amorphous Sediment (None Prsent) Urine Bacteria (Negative) Nasal Screen MRSA (PCR) (Negative) Blood Type Antibody Screen Imaging Data Radiologist's Impression: Radiology results as stated below per my review and the radiologist's interpretation: XR chest 1V portable HISTORY: 58 years-old Female weakness acute weakness with respiratory failure COMPARISON: Chest and rib radiographs 06/25/2015 TECHNIQUE: Portable AP view of the chest FINDINGS: Endotracheal tube overlies the midline, 4.7 cm superior to the jagdeep. Cardiac silhouette is normal in size. Mild pulmonary vascular congestion. No pneumothorax, pleural effusion or overt pulmonary edema. Minimal left basilar opacities. Degenerative changes of the shoulders and spine. IMPRESSION: 1. Endotracheal tube terminates 4.7 cm superior to the jagdeep. 2. Mild pulmonary vascular congestion without overt pulmonary edema. 3. Subsegmental left basilar are suggestive of atelectasis or pneumonitis. The above report was generated using voice recognition software. It may contain grammatical, syntax or spelling errors. Electronically signed by: Kalpesh Pascal M.D. 12/13/2018 8:03 AM ECG Data Attestation: I personally reviewed and interpreted this ECG as follows: Indication: other (angioedema) Rate (beats per minute): 106 Rhythm: sinus tachycardia Findings: no ST depression and no ST elevation Blood Pressure Blood Pressure Findings: Normal blood pressure MDM Narrative This is a 58-year-old female who presents to the emergency department complaining of swollen tongue. 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 Upon arrival to the emergency department her tongue is grossly swollen. Due to the nature of the problem critical care was immediately consulted and the decision was made to intubate the patient. She was typed and screened and given 2 units of FFP. She was also given epinephrine as well as Solu-Medrol Zantac and Benadryl. The case was discussed prior to intubation with both the patient and her who are both in agreement with the treatment plan. Patient was admitted to the ICU. Impression & Plan Angioedema Critical Care Time I have personally spent greater than 90 minutes of critical care time in the direct management of this patient. This includes bedside care, interpretation of diagnostic studies, and testing, discussion with consultants, patient, and family members, and other required patient management activities. This 90 minutes is in excess of all separately billable procedures. Critical Care Time: Yes Total Critical Care Time: 90 Discharge Plan Visit Data *Final* Discharge Date/Time: 12/13/18 09:40 Chief Complaint: Allergic Reaction Stated Complaint: TONGUE SWOLLEN, HARD TO BREATHE ED Provider: Giorgi Joy Discharge Problem: Angioedema Patient Disposition: Admitted As Inpatient Discharge Instructions Interventions: ED Discharge Assessment Last Done: 12/13/18 09:40 Discharge Problem: Angioedema Qualifiers: Encounter type: initial encounter Qualified Code(s): T78.3XXA - Angioneurotic edema, initial encounter The scribe's documentation has been prepared under my direction and personally reviewed by me in its entirety. I confirm that the note above accurately reflects all work, treatment, procedures, and medical decision making performed by me.
[2018-12-14 07:59] LABS: Estimated Average Glucose 171 mg/dl; Hemoglobin A1C 7.6 % (4.5-5.6)
[2018-12-14] MEDS: INSULIN ASPART 100 UNITS/ML 3 ML PEN SC SCH ×5 (08:22→23:44)
[2018-12-14] MEDS: PROSOURCE NO CARB 30 ML/PKT GT SCH (08:23)
[2018-12-14] MEDS: ESCITALOPRAM OXALATE 10 MG TAB PO SCH (08:23)
[2018-12-14] MEDS: SIMVASTATIN 10 MG TAB PO SCH (08:23)
[2018-12-14] MEDS ORDERED: PHARMACY GLYCEMIC MGMT CONSULT PRN (08:41)
[2018-12-14] MEDS ORDERED: INSULIN GLARGINE SOLOSTAR 100 UNITS/ML 3 ML PEN SC ONE ×2 (09:15→20:00)
[2018-12-14 09:54] LABS: Prothrombin Time 10.6 Seconds (9.0-12.0)
[2018-12-14 09:55] LABS: BUN Creatinine Ratio 33.4 (10-20); Calcium 8.7 mg/dl (8.5-10.1); Creatinine Clr Calc Pharmacy 114.8 ml/min; Est GFR (African American) 123.7; Est GFR (Non-African American) 106.7; Potassium 3.5 mmol/L (3.5-5.1)
--- NOTE | 2018-12-14 10:16 | Pharmacy Report ---
Glycemic Control Consultation - Date of Service December 14, 2018 - Scope Scope: Glycemic Pharmacist consulted on 12/14/18 for glycemic control and to write orders per [facility] inpatient glycemic control protocol - Objective Weight: 70.6 kg Accuchecks BSG (last 24hrs): 12/13/18 12/13/18 12/13/18 11:36 14:53 17:30 Glucose POC Glucose 315 H 271 H 214 H 12/13/18 12/13/18 12/13/18 18:32 19:40 21:33 Glucose POC Glucose 181 H 171 H 140 H 12/13/18 12/13/18 12/14/18 22:29 23:29 00:30 Glucose POC Glucose 128 H 125 H 124 H 12/14/18 12/14/18 12/14/18 02:34 04:35 04:41 Glucose 114 H POC Glucose 114 H 115 H 12/14/18 12/14/18 12/14/18 06:24 08:29 09:25 Glucose 134 H POC Glucose 113 H 104 H Laboratory Data (last 24hrs): 12/14/18 12/14/18 04:41 09:25 Potassium 3.1 L D 3.5 Carbon Dioxide 27 28 Anion Gap 9.0 7.0 Creatinine 0.51 L 0.50 L Est Cr Clr Drug Dosing 124.4 114.8 HbA1c: Hemoglobin A1c 7.6 % (4.5-5.6) H 12/14/18 04:41 - Recent Pertinent Medications Outpatient Anti-diabetic Regimen: * Metformin ER 1000 mg po BID * Trulicity (1st filled 11/05/18 per outpatient fill history) * Victoza (still listed on med rec, however, patient likely stopped Victoza and switched to Trulicity) * A1c = 7.6 % on 12/14/18 The patient is currently receiving: * Insulin drip @ 1.8 units/hr Risk Factors for Insulin Resistance: * Steroids: methylprednisolone 125 mg IV 12/13 AM then 40 mg IV q12 starting 12/14 late morning * Diet: Peptamen VHP @ 35 mL/hr (goal) * Mechanical Ventilation: YES - Assessment & Plan Assessment & Plan: ASSESSMENT: * 58 yo F in ICU and intubated 2nd severe angioedema, likely as a result of recent Trulicity start (see my other progress note for background/assessment) * Insulin drip started yesterday 2nd BSG > 300 mg/dL. BSG's have now been well controlled and drip is only running at 1.8 units/hr - OK to transition per ICU rounds * Was not aggressive with initial Lantus dose as patient's A1c is adequate (with no outpatient insulin), she is NPO (although on tubefeeds), and steroids were not initially continued. 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 OK to stop earlier if protocol notes to hold * Hold outpatient metformin and Trulicity * Basal insulin * Lantus 12 units SQ x1 NOW. Additional 0-12 units tonight based on BSG * Bolus insulin * NovoLog per scale ACHS or Q6hrs while NPO * Goal Range: Low 120 mg/dL - High 160 mg/dL * Correction Factor: 35 mg/dL/unit * Nutritional / Prandial insulin per carb ratio of 1 unit per 11 grams CHO consumed PLAN FOR INPATIENT GLYCEMIC CONTROL: * Stop Trulicity - do *not* trial again * Continue metformin ER 1000 mg po BID * Follow-up as outpatient * Please note that the plan above was derived based on current level of insulin resistance and hospital stress. These recommendations are appropriate for inpatient admission only. Plan of care upon discharge will need to be reassessed to avoid potential outpatient hypo/hyperglycemia. Thank you.
[2018-12-14] MEDS: ENOXAPARIN INJ 40 MG/0.4 ML SYR SQ SCH (10:26)
[2018-12-14] MEDS ORDERED: TRAMADOL HCL 50 MG TABLET PO PRN (10:53)
--- NOTE | 2018-12-14 11:09 | Critical Care Progress Note ---
Date of Service December 14, 2018 Assessment & Plan (1) Admitted to intensive care unit: Neuro- awake alert CV- HD stable Pulmonary- acute respiratory failure due to inability to protect airway. tongue still swollen continue vent support. has air leak. reeval tommorow. anigioedema stop dulaglutide and premarin as possible causes. steroids. h2 cody ID- no signs infection Renal- cr ok GI- tube feeds. ranitidine proph Heme- enoxaparin proph Endocrine- blood sugars controlled on insulin drip will transition to SQ insulin Dispo- continue ICU care I have personally spent 40 minutes of critical care time in the direct management of this patient. This is a life/limb threatening event. This includes time spent evaluating patient, direct bedside care, chart review, placing orders, interpretation of diagnostic studies, discussion with consultants, patient, and/or family members regarding treatment decisions, as well as other required patient management activities. This time is exclusive of all separately billable procedures, and teaching time and separate from and in addition to any other critical care service time. Subjective no complaints awake writing on vent Physical Exam Vital Signs (Past 24 Hours): Last Vital Signs Temp 36.8 C 12/14/18 04:00 Pulse 86 12/14/18 07:37 Resp 18 12/14/18 07:37 BP 115/59 L 12/14/18 06:00 Pulse Ox 98 12/14/18 07:37 Physical Exam: Constitutional: Comfortable NAD HEENT: normocephalic atraumatic. MMM. tongue swollen CV: RRR nl s1,s2 no mumurs rubs or gallops Lungs: clear to auscultation bilaterally. no accessory muscle use Abd: soft nontender nondistended. normal bowel sounds Ext: no edema. no cyanosis, no edema Skin: warm dry Neuro: alert and oriented. moving all extremities Psych: normal mood and affect Results & Data Laboratory Results Abnormal lab results 12/13/18 12/13/18 12/13/18 Range/Units 11:36 14:53 17:30 Potassium (3.5-5.1) mmol/L Creatinine (0.6-1.2) mg/dl BUN/Creatinine Ratio (10-20) Glucose (70-99) mg/dl POC Glucose 315 H 271 H 214 H (70-99) Hemoglobin A1c (4.5-5.6) % 12/13/18 12/13/18 12/13/18 Range/Units 18:32 19:40 21:33 Potassium (3.5-5.1) mmol/L Creatinine (0.6-1.2) mg/dl BUN/Creatinine Ratio (10-20) Glucose (70-99) mg/dl POC Glucose 181 H 171 H 140 H (70-99) Hemoglobin A1c (4.5-5.6) % 12/13/18 12/13/18 12/14/18 Range/Units 22:29 23:29 00:30 Potassium (3.5-5.1) mmol/L Creatinine (0.6-1.2) mg/dl BUN/Creatinine Ratio (10-20) Glucose (70-99) mg/dl POC Glucose 128 H 125 H 124 H (70-99) Hemoglobin A1c (4.5-5.6) % 12/14/18 12/14/18 12/14/18 Range/Units 02:34 04:35 04:41 Potassium 3.1 L D (3.5-5.1) mmol/L Creatinine 0.51 L (0.6-1.2) mg/dl BUN/Creatinine Ratio 28.4 H (10-20) Glucose 114 H (70-99) mg/dl POC Glucose 114 H 115 H (70-99) Hemoglobin A1c (4.5-5.6) % 12/14/18 12/14/18 12/14/18 Range/Units 04:41 06:24 08:29 Potassium (3.5-5.1) mmol/L Creatinine (0.6-1.2) mg/dl BUN/Creatinine Ratio (10-20) Glucose (70-99) mg/dl POC Glucose 113 H 104 H (70-99) Hemoglobin A1c 7.6 H (4.5-5.6) % 12/14/18 Range/Units 09:25 Potassium (3.5-5.1) mmol/L Creatinine 0.50 L (0.6-1.2) mg/dl BUN/Creatinine Ratio 33.4 H (10-20) Glucose 134 H (70-99) mg/dl POC Glucose (70-99) Hemoglobin A1c (4.5-5.6) %
[2018-12-14] MEDS: POTASSIUM CHLORIDE 20 MEQ/15 ML UDC NG SCH ×2 (11:53→14:42)
[2018-12-14] MEDS: methylPREDNISolone 40 MG in SYRINGE 0 ML IV SCH ×2 (11:53→21:59)
--- NOTE | 2018-12-14 14:21 | Pharmacy Report ---
Pharmacist Post D/C Phone Note - Phone Note: Angioedema - potential medication causes/assessment Background Patient with significant tongue swelling/angioedema requiring ICU admission and intubation on 12/13/18 Potential Medication Culprits * Trulicity * Started/filled on 11/05/18, per outpatient fill history * Post-marketing surveillance with reports of angioedema noted, with increased frequency if patient had a history of angioedema * Ciprofloxacin * Filled 11/25/18 for UTI * Stopped 11/30/18 (per Dr. Santiago - patient called PCP and noted throat swelling that responded well to Benadryl) * Multiple previous 10 day courses in last year per outpatient fill history - 04/27/18, 05/06/18, 06/29/18, 11/01/18 * Macrobid * Filled 11/30/18 for UTI for a 7 day course * Previous fill for 7 day course on 10/06/18 per outpatient fill history * Premarin vaginal cream * Case reports of anaphylaxis/angioedema, even with the vaginal cream * Filled on 12/09/18 per outpatient fill history, with SIG to take MWF * Met with patient - I asked her which days she took Premarin, noting she had it filled on Saturday 12/09. Although she was intubated and sedated, she wrote out that "I didn't take Premarin" * Victoza * This was still on the medication history and had been consistently filled 07/15/18 to 10/26/18, but it seems like the patient was switched to Trulicity (same medication class) per above Assessment * Angioedema can occur at any time (even if a medication has been discontinued), but it is more likely to occur near the start of therapy * Most likely medication culprit for angioedema for this patient is Trulicity * Ciprofloxacin is still a possibility, especially as one episode of swelling was noted while the patient was on cipro. However, this is less likely as the severe angioedema reaction occurred when the patient had been off of ciprofloxacin for almost 2 weeks and the patient had filled (and therefore likely tolerated) multiple previous courses of ciprofloxacin * Macrobid also cannot be excluded as a cause, although this is less likely Interventions/Recommendations * Stop Trulicity, continue metformin. Outpatient follow-up with provider who manages diabetes medications (?PCP or pre fabricator) * Added Trulicity to allergy list * Also added ciprofloxacin and Macrobid to allergy list, but comments noted r/e less likely to be true reaction - Home Medications: Home Medications Medication Instructions Recorded Confirmed aspirin [Aspirin Low Dose] 81 mg PO DAILY 12/13/18 12/13/18 calcium carbonate-vitamin D3 1,000 tab PO BID 12/13/18 12/13/18 [Calcium 500 + D (D3)] conjugated estrogens [Premarin] 1 applic TOPICAL DIRECTED 12/13/18 12/13/18 dulaglutide [Trulicity] 1.5 mg SUBCUT WK 12/13/18 12/13/18 epinephrine [EpiPen] 0.3 mg IM Q3H PRN 12/13/18 12/13/18 escitalopram oxalate 10 mg PO DAILY 12/13/18 12/13/18 liraglutide [Victoza 3-David] 1.8 mg SUBCUT DAILY 12/13/18 12/13/18 metformin 1,000 mg PO BID 12/13/18 12/14/18 pravastatin 10 mg PO HS 12/13/18 12/13/18
[2018-12-14] MEDS ORDERED: INSULIN GLARGINE SOLOSTAR 100 UNITS/ML 3 ML PEN SC STA (14:59)
[2018-12-14] MEDS ORDERED: INSULIN DRIP - STOP ORDER ONE (16:00)
[2018-12-14] MEDS ORDERED: INSULIN ASPART 100 UNITS/ML 3 ML PEN SC SCH (16:30)
--- NOTE | 2018-12-14 19:44 | Hospitalist Progress Note ---
Date of Service December 14, 2018 Assessment & Plan (1) Angioedema: Possible offending drugs include Trulicity, antibiotics recently taken for UTI-ciprofloxacin, Macrobid Also recently started on Premarin cream Possibly related to, spicy chicken? 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 Will need to be referred to reception specialist upon discharge Patient already taking cetirizine daily (2) Diabetes type 2, controlled: Possible angioedema reaction to Trulicity which was recently started Also uses metformin chronically [place] glycemic control consult placed (3) Fibromyalgia: On Lexapro and Ativan as needed (4) History of angioedema: Patient has multiple allergies including lisinopril, penicillins, cefuroxime, sulfa She will need to be referred to an reception specialist upon discharge Subjective ff up for angioedema Seen sedated, intubated Not in distress Occasionally opens eyes Yet ready for extubation today per ICU team Tolerating tube feeding No other symptoms Physical Exam Vital Signs (Past 24 Hours): Last Vital Signs Temp 36.7 C 12/14/18 15:01 Pulse 80 12/14/18 18:01 Resp 18 12/14/18 15:20 BP 115/53 L 12/14/18 18:01 Pulse Ox 94 12/14/18 18:01 Physical Exam: General-sedated, intubated, nondistressed accessory muscle use Eyes- anicteric Neck- no JVD Lungs-mild rhonchi at the bases bilaterally, no wheezing, good air entry bilaterally Heart- normal rate, regular rhythm; no murmurs Abdomen- normal bowel sounds, nondistended, soft, nontender Extremities- no pretibial edema, no calf tenderness Neuro-sedated Skin- warm & dry Results & Data Laboratory Results Laboratory Results - last 24 hr 12/13/18 12/13/18 12/13/18 19:40 21:33 22:29 PT INR Sodium Potassium Chloride Carbon Dioxide Anion Gap BUN Creatinine Est Cr Clr Drug Dosing Est GFR ( Amer) Est GFR (Non-Af Amer) BUN/Creatinine Ratio Glucose POC Glucose 171 H 140 H 128 H Estimat Average Glucose Hemoglobin A1c Calcium Phosphorus Magnesium 12/13/18 12/14/18 12/14/18 23:29 00:30 02:34 PT INR Sodium Potassium Chloride Carbon Dioxide Anion Gap BUN Creatinine Est Cr Clr Drug Dosing Est GFR ( Amer) Est GFR (Non-Af Amer) BUN/Creatinine Ratio Glucose POC Glucose 125 H 124 H 114 H Estimat Average Glucose Hemoglobin A1c Calcium Phosphorus Magnesium 12/14/18 12/14/18 12/14/18 04:35 04:41 04:41 PT INR Sodium 141 Potassium 3.1 L D Chloride 105 Carbon Dioxide 27 Anion Gap 9.0 BUN 15 Creatinine 0.51 L Est Cr Clr Drug Dosing 124.4 Est GFR ( Amer) 122.8 Est GFR (Non-Af Amer) 106.0 BUN/Creatinine Ratio 28.4 H Glucose 114 H POC Glucose 115 H Estimat Average Glucose 171 Hemoglobin A1c 7.6 H Calcium 8.7 Phosphorus 3.1 Magnesium 2.0 12/14/18 12/14/18 12/14/18 06:24 08:29 09:25 PT 10.6 INR 1.0 Sodium Potassium Chloride Carbon Dioxide Anion Gap BUN Creatinine Est Cr Clr Drug Dosing Est GFR ( Amer) Est GFR (Non-Af Amer) BUN/Creatinine Ratio Glucose POC Glucose 113 H 104 H Estimat Average Glucose Hemoglobin A1c Calcium Phosphorus Magnesium 12/14/18 12/14/18 12/14/18 09:25 09:39 10:29 PT INR Sodium 140 Potassium 3.5 Chloride 105 Carbon Dioxide 28 Anion Gap 7.0 BUN 17 Creatinine 0.50 L Est Cr Clr Drug Dosing 114.8 Est GFR ( Amer) 123.7 Est GFR (Non-Af Amer) 106.7 BUN/Creatinine Ratio 33.4 H Glucose 134 H POC Glucose 147 H 148 H Estimat Average Glucose Hemoglobin A1c Calcium 8.7 Phosphorus Magnesium 12/14/18 12/14/18 12/14/18 11:52 12:42 14:39 PT INR Sodium Potassium Chloride Carbon Dioxide Anion Gap BUN Creatinine Est Cr Clr Drug Dosing Est GFR ( Amer) Est GFR (Non-Af Amer) BUN/Creatinine Ratio Glucose POC Glucose 148 H 172 H 218 H Estimat Average Glucose Hemoglobin A1c Calcium Phosphorus Magnesium 12/14/18 16:10 PT INR Sodium Potassium Chloride Carbon Dioxide Anion Gap BUN Creatinine Est Cr Clr Drug Dosing Est GFR ( Amer) Est GFR (Non-Af Amer) BUN/Creatinine Ratio Glucose POC Glucose 231 H Estimat Average Glucose Hemoglobin A1c Calcium Phosphorus Magnesium (1) Angioedema Encounter type: initial encounter Qualified Code(s): T78.3XXA - Angioneurotic edema, initial encounter
[2018-12-15] MEDS ORDERED: INSULIN ASPART 100 UNITS/ML 3 ML PEN SC SCH
[2018-12-15] MEDS: fentaNYL citrate 100 MCG/2 ML VIAL IV PRN (02:02)
[2018-12-15] MEDS: PROPOFOL 1,000 MG/100 ML VIAL IV PRN (04:46)
[2018-12-15] MEDS: INSULIN ASPART 100 UNITS/ML 3 ML PEN SC SCH ×5 (04:50→20:09)
[2018-12-15 05:27] LABS: BUN Creatinine Ratio 35.2 (10-20); Calcium 8.7 mg/dl (8.5-10.1); Creatinine Clr Calc Pharmacy 94.1 ml/min; Est GFR (African American) 115.8; Est GFR (Non-African American) 99.9; Magnesium 2.2 mg/dl (1.8-2.4); Phosphorus 3.7 mg/dl (2.5-4.9); Potassium 4.1 mmol/L (3.5-5.1)
[2018-12-15] MEDS: ENOXAPARIN INJ 40 MG/0.4 ML SYR SQ SCH (07:55)
[2018-12-15] MEDS: PROSOURCE NO CARB 30 ML/PKT GT SCH (07:55)
[2018-12-15] MEDS: ESCITALOPRAM OXALATE 10 MG TAB PO SCH (07:56)
[2018-12-15] MEDS: methylPREDNISolone 40 MG in SYRINGE 0 ML IV SCH (07:57)
--- NOTE | 2018-12-15 07:57 | Critical Care Progress Note ---
Date of Service December 15, 2018 Assessment & Plan (1) Admitted to intensive care unit: Neuro- awake alert. proprofol for comfort on vent CV- HD stable Pulmonary- acute respiratory failure due to inability to protect airway. tongue swelling improved. check air leak. SBT today and llkely extubation. angioedema stop dulaglutide and premarin as possible causes. steroids. h2 cody ID- no signs infection Renal- cr ok GI- tube feeds. ranitidine proph Heme- enoxaparin proph Endocrine- blood sugars high adjust SQ insulin. likely related to steroids Dispo- continue ICU care for ventilatory support I have personally spent 40 minutes of critical care time in the direct manageme nt of this patient. This is a life/limb threatening event. This includes time spent evaluating patient, direct bedside care, chart review, placing orders, interpretation of diagnostic studies, discussion with consultants, patient, and/or family members regarding treatment decisions, as well as other required patient management activities. This time is exclusive of all separately billable procedures, and teaching time and separate from and in addition to any other critical care service time. Subjective no complaints awake shaking head yes/no on vent Physical Exam Vital Signs (Past 24 Hours): Last Vital Signs Temp 36.7 C 12/15/18 04:00 Pulse 86 12/15/18 07:01 Resp 18 12/15/18 07:01 BP 104/67 12/15/18 06:00 Pulse Ox 94 12/15/18 07:01 Physical Exam: Constitutional: Comfortable NAD HEENT: normocephalic atraumatic. MMM. tongue swelling appears resolved CV: RRR nl s1,s2 no mumurs rubs or gallops Lungs: clear to auscultation bilaterally. no accessory muscle use Abd: soft nontender nondistended. normal bowel sounds Ext: no edema. no cyanosis, no edema Skin: warm dry Neuro: alert and oriented. moving all extremities Psych: normal mood and affect
[2018-12-15] MEDS ORDERED: INSULIN GLARGINE SOLOSTAR 100 UNITS/ML 3 ML PEN SC ONE ×3 (09:00→20:00)
--- NOTE | 2018-12-15 09:49 | Pharmacy Report ---
Pharmacy Glycemic Short Note 2 - Date of Service December 15, 2018 - Glycemic Short BSG Results (Last 24 hours): 12/14/18 12/14/18 12/14/18 09:25 09:39 10:29 Glucose 134 H POC Glucose 147 H 148 H 12/14/18 12/14/18 12/14/18 11:52 12:42 14:39 Glucose POC Glucose 148 H 172 H 218 H 12/14/18 12/14/18 12/14/18 16:10 20:03 23:40 Glucose POC Glucose 231 H 241 H 160 H 12/15/18 12/15/18 12/15/18 04:14 04:48 07:51 Glucose 246 H POC Glucose 255 H 218 H Outpatient Anti-diabetic Regimen: * Metformin ER 1000 mg po BID * Trulicity (1st filled 11/05/18 per outpatient fill history) * Victoza (still listed on med rec, however, patient likely stopped Victoza and switched to Trulicity) * A1c = 7.6 % on 12/14/18 Risk Factors for Insulin Resistance: * Steroids: methylprednisolone 125 mg IV 12/13 AM then 40 mg IV q12 starting 12/14 - discontinued after dose this AM * Diet: Peptamen VHP @ 35 mL/hr (goal) - discontinued this AM * Mechanical Ventilation: extubated this AM ASSESSMENT: * 58 yo F admitted 12/13 and remains intubated in ICU 2nd severe angioedema, likely as a result of recent Trulicity start (see my other progress note on 12/14 for background/assessment) * Insulin drip transitioned to basal/bolus yesterday afternoon with sub-optimal control (BSG's ranging 160-255 mg/dL since transition), likely 2nd continuation of steroids while on continuous tubefeeds * Despite sub-optimal control, will not make aggressive changes (including starting insulin drip) as the patient was extubated today, tubefeeds were stopped, and steroids were discontinued * Will slightly increase Lantus (dose this AM ~total daily weight-based moderate stress estimate) * Will slightly tighten Novolog parameters * Will give one-time small IV doses for BSG > 220 mg/dL PLAN FOR INPATIENT GLYCEMIC CONTROL: * Hold outpatient metformin and Trulicity * Insulin regular 3 units IV x1 today @ 1200 * Basal insulin * Lantus 25 units SQ x1 this AM. Additional 0-10 units tonight based on BSG * Bolus insulin * NovoLog per scale ACHS or Q6hrs while NPO * Goal Range: Low 120 mg/dL - High 150 mg/dL * Correction Factor: 30 mg/dL/unit * Nutritional / Prandial insulin per carb ratio of 1 unit per 10 grams CHO consumed PLAN FOR INPATIENT GLYCEMIC CONTROL: * Stop Trulicity - do *not* trial again * Continue metformin ER 1000 mg po BID * Follow-up as outpatient
[2018-12-15] MEDS ORDERED: INSULIN HUMAN REGULAR PER UNIT 3 UNITS in SYRINGE 2.97 ML IV ONE (11:45)
[2018-12-15] MEDS ORDERED: predniSONE 10 MG TABLET PO STA (21:26)
[2018-12-15] MEDS ORDERED: CETIRIZINE HCL 10 MG TABLET PO ONE (21:26)
[2018-12-15] MEDS ORDERED: NovoLIN-N (NPH) PER UNIT CHARGE SQ ONE (23:00)
[2018-12-16] MEDS: INSULIN ASPART 100 UNITS/ML 3 ML PEN SC SCH (00:01)
[2018-12-16] MEDS ORDERED: Nursing to Pharmacy Communication ONE (00:59)
[2018-12-16] MEDS ORDERED: INSULIN ASPART 100 UNITS/ML 3 ML PEN SC SCH ×2 (04:00→07:30)
[2018-12-16 04:43] LABS: BUN Creatinine Ratio 31.3 (10-20); Calcium 8.9 mg/dl (8.5-10.1); Creatinine Clr Calc Pharmacy 119.6 ml/min; Est GFR (African American) 125.3; Est GFR (Non-African American) 108.1; Magnesium 2.3 mg/dl (1.8-2.4); Potassium 3.9 mmol/L (3.5-5.1)
[2018-12-16 04:48] LABS: Phosphorus 2.6 mg/dl (2.5-4.9)
--- NOTE | 2018-12-16 05:09 | Hospitalist Progress Note ---
Date of Service December 16, 2018 delayed entry date of service 12/15/18 Assessment & Plan (1) Angioedema: Possible offending drugs include Trulicity, antibiotics recently taken for UTI-ciprofloxacin, Macrobid Also recently started on Premarin cream Possibly related to, spicy chicken? Intubated at the ER Patient has received Solu-Medrol, epinephrine, pantoprazole, Benadryl at the ER Solu-Medrol 40 mg IV every 12 added, ranitidine added while in the ICU extubated 12/15/18 will add Prednisone 40mg daily, Cetirizine daily Will need to be referred to biology specialist upon discharge (2) Diabetes type 2, controlled: Possible angioedema reaction to Trulicity which was recently started as per patient, she was transitioned from Victoza to Trulicity as she wanted a weekly dosing medication Also uses metformin chronically Pharmacy glycemic control consult placed (3) Fibromyalgia: On Lexapro and Ativan as needed (4) History of angioedema: Patient has multiple allergies including lisinopril, penicillins, cefuroxime, sulfa She will need to be referred to an biology specialist upon discharge Disposition d/c home when medically stable ff up with PCP refer to [facility] Subjective ff up for angioedema seen resting in bed, comfortable, using her cellphone states she feels better overall although has some pruritus and sore throat denies tongue/lip/throat swelling sensation no rashes denies other symptoms Physical Exam Vital Signs (Past 24 Hours): Last Vital Signs Temp 36.4 C L 12/16/18 04:00 Pulse 72 12/16/18 04:00 Resp 16 12/16/18 04:00 BP 114/59 L 12/16/18 04:00 Pulse Ox 94 12/16/18 04:00 Physical Exam: General- oriented x 3, not in distress, speaks in sentences with no effort or accessory muscle use Eyes- anicteric ENT- no lip/tongue swelling Neck- no JVD Lungs- clear breath sounds bilaterally, no rales/wheezes Heart- normal rate, regular rhythm; no murmurs Abdomen- normal bowel sounds, nondistended, soft, nontender Extremities- no pretibial edema, no calf tenderness no rashes Neuro- alert, oriented x 3; no gross focal neurologic deficits Skin- warm & dry Results & Data Laboratory Results noted, reviewed (1) Angioedema Encounter type: initial encounter Qualified Code(s): T78.3XXA - Angioneurotic edema, initial encounter
[2018-12-16] MEDS ORDERED: ACETAMINOPHEN 325 MG TAB PO PRN (07:37)
--- NOTE | 2018-12-16 07:45 | Critical Care Progress Note ---
Date of Service December 16, 2018 Assessment & Plan (1) Admitted to intensive care unit: Neuro- awake alert. CV- HD stable Pulmonary- acute respiratory failure due to inability to protect airway. tongue swelling improved. extubated / doing well on RA. angioedema stop dulaglutide as possible causes. ID- no signs infection Renal- cr ok. dark urine and flank pain check UA GI- diet as tolerated Heme- enoxaparin proph Endocrine- blood sugars highat times. likely related to steroids Dispo- ok to transfer to floor. possibly home today Subjective complains of pain to L flank and dark urine Physical Exam Vital Signs (Past 24 Hours): Last Vital Signs Temp 36.4 C L 12/16/18 04:00 Pulse 77 12/16/18 06:00 Resp 19 12/16/18 06:00 BP 113/66 12/16/18 06:00 Pulse Ox 94 12/16/18 06:00 Physical Exam: Constitutional: Comfortable NAD in chair HEENT: normocephalic atraumatic. MMM. no swelling of tongue CV: RRR nl s1,s2 no murmurs rubs or gallops Lungs: clear to auscultation bilaterally. no accessory muscle use Abd: soft nontender nondistended. Ext: no edema. no cyanosis, no clubbing Skin: warm dry Neuro: alert and oriented. Psych: normal mood and affect
[2018-12-16] MEDS ORDERED: predniSONE 10 MG TABLET PO SCH (09:00)
[2018-12-16] MEDS ORDERED: NovoLIN-N (NPH) PER UNIT CHARGE SQ ONE (09:00)
[2018-12-16] MEDS: ENOXAPARIN INJ 40 MG/0.4 ML SYR SQ SCH (09:11)
[2018-12-16] MEDS: ESCITALOPRAM OXALATE 10 MG TAB PO SCH (09:13)
[2018-12-16] MEDS: SIMVASTATIN 10 MG TAB PO SCH (09:14)
[2018-12-16 10:32] LABS: Appearance Urine Clear (Clear); Bacteria Urine Automated Negative (Negative); Bilirubin Urine Negative (Negative); Blood Urine 2+ (Negative); Color Urine Dark Yellow; Epithelial Cell Urine Auto >30 /lpf (0-5); Glucose Urine UA 3+ (Negative); Ketones Urine Trace (Negative); Leukocyte Esterase Urine Negative (Negative); Nitrite Urine Negative (Negative); Protein Urine Trace (Negative); Specific Gravity Urine 1.042 (1.000-1.030); Urobilinogen Urine Negative (Negative); pH Urine 5.5 (4.5-7.5)
--- NOTE | 2018-12-16 10:43 | Discharge Summary ---
Date of Service December 16, 2018 Admission HPI Per Admitting Provider Primary Care Provider: Dr Judge 58-year-old female with history of diabetes, fibromyalgia, angioedema, presenting with tongue and mouth swelling. History obtained from patient's at the bedside as the patient is intubated. Patient apparently was started on Trulicity last week and had a repeat dose last Friday. Apparently she is also been treated with antibiotics last week. Exact name of which the patient's could not recall. Patient also had some chicken wings that are spicy last night but did not have any immediate reaction. This morning the patient noticed increased tongue swelling and mouth swelling. She self medicated with Benadryl but with no relief. She then drove herself to the emergency room. At the ER the patient was intubated by green hide inspector Dr. Valenzuela for protection My exam the patient is intubated, sedated with propofol, not in distress. Principal Diagnosis Allergic drug reaction, angioedema, Discharge Exam GENERAL: No sign of distress, HEENT: Sclera nonicteric, pink-purple bilateral equal reactive to light extraocular muscle intact Normal oral mucosa, neck: No JVD, no thyromegaly, trachea midline Lungs: Clear to auscultate, no wheeze or rales Cardiovascular: Regular S1 and S2, no murmur or gallop, no JVD, no lower extremity edema Abdomen: Soft, nontender, bowel sounds active, no hepatosplenomegaly Extremities: No rash or deformity, normal joint, Neuro: No focal neurological deficit, no dysarthria, no facial droop Psych: Alert awake oriented x3: Euthymic Skin: No rash LYMPH NODES: No cervical lymphadenopathy Discharge Data Allergies Allergy/AdvReac Type Severity Reaction Status Date / Time ciprofloxacin [From Cipro] Allergy Severe SEE COMMENT Unverified 12/16/18 12:25 dulaglutide [From Trulicity] Allergy Severe ANGIOEDEMA Verified 12/16/18 12:26 lisinopril Allergy Severe SHORTNESS Verified 12/13/18 08:35 OF BREATH nitrofurantoin Allergy Severe SEE COMMENT Unverified 12/16/18 12:26 [From Macrobid] amoxicillin Allergy Unknown . Unverified 12/13/18 08:35 aripiprazole Allergy Unknown unknown Verified 12/13/18 08:35 cefuroxime Allergy Unknown . Unverified 12/13/18 08:35 clavulanic acid Allergy Unknown . Unverified 12/13/18 08:35 paroxetine Allergy Unknown . Unverified 12/13/18 08:35 Penicillins Allergy Unknown Unknown Unverified 12/14/18 10:39 Sulfa (Sulfonamide Allergy Unknown Unknown Unverified 12/14/18 10:39 Antibiotics) ANTIHISTAMINES Allergy Intermediate TACHYCARDIA Uncoded 12/13/18 08:35 Consultations 12/13/18 07:16 Consult Medical Staffing Coordinator Stat 12/13/18 07:55 ED Decision to Admit Stat 12/13/18 10:07 Consult Case Management - Discharge Planning Routine Consult Case Management - Discharge Planning Routine Hospital Course (1) Angioedema: Possible offending drugs include Trulicity, subcu injection weekly Initially developed itching, overall not feeling well on the first injection Next week symptoms continued to get worse after repeat injection Patient contacted family physician's office, was worried possibly secondary to ciprofloxacin this patient was started on that for you tract infection' Was ordered Benadryl Presented with severe angioedema, throat closing, respiratory failure, required emergent intubation Was admitted to intensive care unit Symptoms resolved after IV Solu-Medrol epinephrine, Benadryl, IV PPI extubated 12/15/18 At present doing well, in room air, sitting up tolerating diet, no evidence of any rash, no difficulty swallowing Trulicity added and patient's list of drug allergy Able to be discharged home with Medrol Dosepak Prescription given for EpiPen as well Patient will benefit with outpatient regulatory compliance specialist follow-up, information given (2) Diabetes type 2, controlled: Possible angioedema reaction to Trulicity which was recently started as per patient, she was transitioned from Victoza to Trulicity as she wanted a weekly dosing medication Also uses metformin chronically Pharmacy glycemic control consult placed-appreciate input Patient recovered well, will be discharged home with metformin only Trulicity added in list of allergy (3) Fibromyalgia: On Lexapro and Ativan as needed (4) History of angioedema: Patient has multiple allergies including lisinopril, penicillins, cefuroxime, sulfa She will need to be referred to an regulatory compliance specialist upon discharge Information given for follow-up with [facility] physician group regulatory compliance specialist Disposition Stable to be discharged home today Family medicine follow-up with Dr. Judge Total Time Total Time Spent Total Time Spent (In Minutes): Approximate 40 minutes Total Time Includes: Examination of the Patient, Discharge Planning and Medication Reconciliation Discharge Plan Discharge Items Patient Disposition: Home - Self-Care Reason For Visit: ABGIOEDEMA Discharge Diagnosis: ALLERGIC REACTION /ANGEOEDEMA /REQUIRED INTUBATION Discharge Goals: Decrease discomfort Activity: Resume your previous activity Non-emergency contact: Primary Care Provider Call non-emergency contact if: you have any medication questions Follow-up/Referrals: Jairo Judge MD [Staff Physician] - 12/21/18 11:20 am Noelle Clemons MD [Physician] - (FOLLOW UP WITH SEPTIC [employer] TRUCK DRIVER ON 2-3 WEEKS PLEASE CALL TO SCHEDULE APPOINTMENT ) Diet: Carb Consistent or DM2 Addtl Provider Instructions: DO NOT TAKE TRULICITY ADDED IN YOUR ALLERGY LIST FOLLOW UP WITH DR JUDGE Friday12/21/2018 @ 11: 20 AM SEPTIC [employer] TRUCK DRIVER FOLLOW UP : Dr Noelle Clemons MD Phone no: [phone] , please call to schedule appointment in 2-3 weeks Prescriptions: New methylprednisolone [Medrol (David)] 4 mg tablets,dose pack 4 mg PO UD Qty: 21 RF: 0 epinephrine 0.1 mg/0.1 mL auto-injector 0.3 mg subcut UD Qty: 2 RF: 2 lorazepam [Ativan] 0.5 mg tablet 0.5 mg PO DAILY PRN (Reason: anxiety) Qty: 10 RF: 0 Continued pravastatin 10 mg tablet 10 mg PO HS RF: 0 Premarin 0.625 mg/gram cream 1 applic topical DIRECTED RF: 0 escitalopram oxalate 10 mg tablet 10 mg PO DAILY RF: 0 aspirin [Aspirin Low Dose] 81 mg Tablet,Delayed Release (Dr/Ec) 81 mg PO DAILY RF: 0 epinephrine [EpiPen] 0.3 mg/0.3 mL Auto-Injector 0.3 mg IM Q3H PRN (Reason: Allergic Reaction) RF: 0 metformin 500 mg tablet extended release 24 hr 1,000 mg PO BID RF: 0 calcium carbonate-vitamin D3 [Calcium 500 + D (D3)] 500 mg(1,250mg) -125 unit Tablet 1,000 tab PO BID RF: 0 Discontinued Victoza 3-David 0.6 mg/0.1 mL (18 mg/3 mL) pen injector 1.8 mg subcut DAILY RF: 0 Trulicity 0.75 mg/0.5 mL pen injector 1.5 mg subcut WK RF: 0 Stand-Alone Forms: [facility], Work/School Release (Inpt) Discharge Orders: Discharge Order (Routine); Ordered 12/16/18 Ordered By: Medina Oliveros Admission Data Admit Date/Time: 12/13/18 08:52 Attending Provider: Medina Oliveros Admit Provider: Gatito Santiago Primary Care Provider: PCP,NO Other Providers: Franklin Robles ; Gatito Santiago Service: Intensive Care Unit Other Interventions: Discharge Summary Assessment (RN) Last Done: 12/16/18 10:50 DC Date/Time DO NOT enter until pt leaves facility: 12/16/18 13:10
[2018-12-16] MEDS ORDERED: CETIRIZINE HCL 10 MG TABLET PO SCH (21:00)
== END 2018-12-16 13:10 | disposition home or self-care (01) | DRG 208 ==
LOC: ED 06:47 → SUATTDRO 08:52 → 1E 08:52

== ENCOUNTER 2020-04-24 06:37 | Inpatient (IN) ==
--- NOTE | 2020-04-24 07:16 | Emergency Department Note ---
History of Present Illness General Chief Complaint: Fall Stated Complaint: FALL/HIP PAIN Time Seen by Provider: 04/24/20 07:01 Source: patient Mode of arrival: ambulatory Limitations: no limitations History of Present Illness Provider complaint: fall Onset (ago): hour(s) 2 Fall from: standing Fall witnessed: no Place fall occurred: work ([employer]) Loss of consciousness: none Prolonged down time: no Symptoms prior to fall: none Treatments prior to arrival: + none Context: + other (pulling on heavy door, pulled back, knocked off balance) Location of injury: + pelvis (right) Location of injury - extremities: Right: thigh Severity: severe Current Pain Intensity: 10 Quality: + sharp and + aching Associated symptoms (after fall): + unable to walk and + other (unable to sit) This 60-year-old female patient presents to the emergency department today via ambulance for evaluation of right hip pain after a fall. The patient states at approximately 5-5 30 this morning she was walking into work when she was pulling on a heavy glass door. When she pulled backwards, knocked her off balance, causing her to fall and land on the right hip and back. The patient states she landed on a concrete sidewalk. She denies any head injury or loss of consciousness. She denies any bowel or bladder dysfunction. She called her boss and coworkers attempted to assist her to a sitting position, but the patient was unable to tolerate this or stand upright. She did receive 10 mg morphine and 4 mg Zofran prior to arrival via EMS. She denies any history of injury to this hip. She denies any numbness, tingling, or weakness. Her position of comfort is with the knees flexed over a pillow and hip slightly flexed. Patient rates her pain a 10/10, but does report some improvement since receiving the pain medication. She denies any open wounds or bleeding. She denies any further injury. Home Medications Home Medications Medication Instructions Recorded Confirmed Type epinephrine [EpiPen] 0.3 mg IM Q3H PRN 12/13/18 04/24/20 History escitalopram oxalate 10 mg PO QAM 12/13/18 04/24/20 History metformin 1,000 mg PO BID 12/13/18 04/24/20 History lorazepam [Ativan] 0.5 mg PO DAILY PRN #10 tab 12/16/18 04/24/20 Rx diphenhydramine HCl [Benadryl] 25 mg PO UD PRN 01/09/19 04/24/20 History multivitamin 1 tab PO QDD 01/09/19 04/24/20 History pravastatin 10 mg PO HS 05/04/19 04/24/20 History aspirin 81 mg PO QAM 04/24/20 04/24/20 History cholecalciferol (vitamin D3) 50 mcg PO DAILY 04/24/20 04/24/20 History [Vitamin D3] hydroxyzine HCl 25 mg PO HS 04/24/20 04/24/20 History liraglutide [Victoza 3-David] 1.8 mg SQ QAM 04/24/20 04/24/20 History omega 4-sod-smb-fish oil [Fish Oil] 1 cap PO QAM 04/24/20 04/24/20 History Allergies Allergy/AdvReac Type Severity Reaction Status Date / Time ciprofloxacin [From Cipro] Allergy Severe SEE COMMENT Verified 04/24/20 07:38 dulaglutide [From Trulicity] Allergy Severe ANGIOEDEMA Verified 04/24/20 07:38 lisinopril Allergy Severe SHORTNESS Verified 04/24/20 07:38 OF BREATH nitrofurantoin Allergy Severe SEE COMMENT Verified 04/24/20 07:38 [From Macrobid] MAXI Inhibitors Allergy Unknown Unknown Verified 04/24/20 07:38 amoxicillin Allergy Unknown Unknown Verified 04/24/20 07:38 aripiprazole Allergy Unknown unknown Verified 04/24/20 07:38 cefuroxime Allergy Unknown . Verified 04/24/20 07:38 clavulanic acid Allergy Unknown . Verified 04/24/20 07:38 paroxetine Allergy Unknown . Verified 04/24/20 07:38 Penicillins Allergy Unknown Unknown Verified 04/24/20 07:38 pravastatin [From Pravachol] Allergy Unknown Unknown Verified 04/24/20 07:38 Sulfa (Sulfonamide Allergy Unknown Unknown Verified 04/24/20 07:38 Antibiotics) bupropion [From Wellbutrin] Allergy Unknown Verified 04/24/20 07:38 Cephalosporins Allergy Unknown Verified 04/24/20 07:38 lamotrigine Allergy Unknown Verified 04/24/20 07:38 ANTIHISTAMINES Allergy Intermediate TACHYCARDIA Uncoded 04/24/20 07:38 Past Med/Surg History Medical History Anxiety Biopsy of breast (Resolved 01/13/12) Deviated nasal septum (Chronic 01/13/12) Diabetes mellitus, type II Elbow fracture, right (Acute) Family history of LA (myocardial infarction) Fibromyalgia History of angioedema HLD (hyperlipidemia) Rib fracture (Resolved) Surgical History History of dental surgery History of hysterectomy Abdominal History of rhinoplasty History of surgery on arm open treatment of fracture of the radial shaft open treatment of fracture of the ulnar shaft History of tubal ligation Family History Mother Breast cancer Diabetes Other Dyslipidemia Gallbladder disease H/O ovarian cystectomy History of IVP Hypertension Social History Smoking Status: Never smoker Hx Alcohol Use: Yes Alcohol type: beer Hx Substance Use: No Preferred Language: [place] Communication Ability: Effective Central Station Operator Required: No Beliefs That Will Affect Care: None Current Living Situation: Spouse Other Information That Helps Us Care for You: No Feels Safe at Home: Yes Safety Concerns: Feels Safe At This Time Review of Systems A total of 10 systems reviewed and were otherwise negative Physical Exam Vital Signs Vital Signs - 24 hr 04/24/20 06:39 04/24/20 08:12 Temperature 37.1 C Temperature Source Oral Pulse Rate 95 H Pulse Rate [Apical] 87 Respiratory Rate 18 Blood Pressure 177/102 H Blood Pressure [Left Arm] 161/82 H Blood Pressure Mean 127 Blood Pressure Mean [Left Arm] 108 Pulse Oximetry 97 93 Oxygen Delivery Method Room Air Room Air Sepsis Recent Fever Within 48 Hours No Sepsis New/Unexplained Change in Mental Status No Sepsis Action Taken by Nursing No Action Required VITALS: Vitals are noted on the nurse's note and reviewed by myself. Vital signs stable. GENERAL: This is a 60-year-old white female, in no acute distress, nondiaphoretic, well-developed well-nourished. SKIN: The skin was without rashes, erythema, edema, or bruising. There is no tenting of the skin. Capillary refill less than 2 seconds. HEAD: Normocephalic atraumatic. EYES: Conjunctivae without injection, sclerae without icterus. Extraocular movements intact. No swelling or discoloration of the tissues surround the eyes NECK: Supple without nuchal rigidity. No lymphadenopathy. Cervical spine is nontender. HEART: Regular rate and rhythm without murmurs gallops or rubs. LUNGS: Clear to auscultation bilaterally without wheezes, rales or rhonchi. No retractions or accessory muscle use. ABDOMEN: Positive bowel sounds x 4. Normal tympanic percussion. Soft, nontender, without masses or organomegaly. Dillon sign negative. No guarding or rebound tenderness. MUSCULOSKELETAL: Patient is lying with her knees flexed over a pile of blankets and hips somewhat flexed as her position of comfort. She does maintain full range of motion at the right hip, but full extension followed by flexion does cause discomfort. Patient unable to tolerate [place] testing. There is ten derness to palpation in multiple areas of the right hip and proximal femur, but this is difficult to localize. No muscle atrophy, erythema, or edema noted. Full range of motion without joint tenderness in all extremities except as noted. No tenderness to palpation except as noted. Patient unable to ambulate. Strength 5/5 throughout. NEURO: Patient was alert and oriented to person place and time. Normal sensation to light and sharp touch. Deep tendon reflexes 2+ throughout. No focal neurological deficits. Course Course The patient was seen and evaluated as above. IV access obtained by EMS staff RENAL NURSE. An order was placed for continuous cardiac monitoring. The monitor shows a Normal sinus rhythm at a rate of 95 bpm. Imaging performed and reviewed by myself and radiologist as noted. I discussed the findings with the patient at bedside. I discussed case with the information management manager. I discussed the case with Pam Victoria PA-C with [facility] hospitalist service for admission. I did contact Solitario Wylie PA-C with [place] for consultation regarding the fracture. Preoperative x-ray and laboratory evaluation obtained. This was reviewed by myself. Please see hospitalist and orthopedic dictation regarding ongoing management care of this patient. Administered Medications Lactated Ringer's (Lr) 1,000 mls @ 100 mls/hr IV .Q10H [place] Stop: 05/24/20 10:33 Last Admin: 04/24/20 10:48 Dose: 100 mls/hr Documented by: [id number] Morphine Sulfate (Morphine Sulfate) 2 mg IV Q3H PRN PRN Reason: MODERATE Pain (Scale 4,5,6) Stop: 05/08/20 10:33 Last Admin: 04/24/20 10:51 Dose: 2 mg Documented by: [id number] Discontinued Medications Sodium Chloride (Nss 1000ml) 1,000 mls @ 999 mls/hr IV .Q1H1M ONE Stop: 04/24/20 09:30 Last Infusion: 04/24/20 10:02 Dose: 0 mls/hr Documented by: [id number] Admin: 04/24/20 08:59 Dose: 999 mls/hr Documented by: [id number] Medical Decision Making Differential Diagnosis syncope, dislocation, fracture, compression fracture, concussion with loss of consciousness, concussion without loss of consciousness, closed head injury, intracranial bleeding, contusion, abrasion, soft tissue injury and conpartment syndrome Medical Records Attestation: I reviewed the patient's medical records. Home Medications Current Medication List: was personally reviewed by me Laboratory Data Attestation: I reviewed the patient's lab results. No leukocytosis, anemia, thrombocytopenia. Renal, hepatic function, and electrolytes without significant abnormality. Coags normal. Urinalysis positive for 3+ glucose, but no evidence of infection or blood. Result diagrams: 04/24/20 06:45 04/24/20 09:11 Lab Results 04/24/20 04/24/20 04/24/20 Range/Units 06:45 06:45 06:45 WBC 7.61 (4.8-10.8) K/uL RBC 4.79 (4.2-5.4) M/uL Hgb 15.3 (12.0-16.0) g/dL Hct 44.0 (37-47) % MCV 91.9 (80-100) fL MCH 31.9 (25-34) pg MCHC 34.8 (32-36) g/dL RDW Std Deviation 41.7 (36.4-46.3) fL RDW Coeff of Tamela 12.4 (11.5-14.5) % Plt Count 250 (130-400) K/uL MPV 10.2 (7.4-10.4) fL Immature Gran % (Auto) 0.7 % Neut % (Auto) 63.2 % Lymph % (Auto) 22.6 % [place] % (Auto) 7.9 % Eos % (Auto) 5.1 % Baso % (Auto) 0.5 % Neut # (Auto) 4.81 (1.4-6.5) K/uL Lymph # (Auto) 1.72 (1.2-3.4) K/uL [place] # (Auto) 0.60 H (0.11-0.59) K/uL Eos # (Auto) 0.39 (0-0.5) K/uL Baso # (Auto) 0.04 (0-0.2) K/uL Immature Gran # (Auto) 0.05 H (0.00-0.02) K/uL PT 10.3 (9.0-12.0) Seconds INR 1.0 (0.9-1.1) APTT 25.9 (21.0-31.0) Seconds PTT Ratio 0.9 Sodium 137 (136-145) mmol/L Potassium (3.5-5.1) mmol/L Chloride 102 (98-107) mmol/L Carbon Dioxide 27 (21-32) mmol/L Anion Gap 8.0 (3-11) BUN 13 (7-18) mg/dl Creatinine 0.57 L (0.6-1.2) mg/dl Est Cr Clr Drug Dosing 109.6 ml/min Est GFR ( Amer) 116.8 Est GFR (Non-Af Amer) 100.8 BUN/Creatinine Ratio 21.9 H (10-20) Glucose 220 H (70-99) mg/dl Calcium 9.0 (8.5-10.1) mg/dl Urine Color Urine Appearance (Clear) Urine pH (4.5-7.5) Ur Specific [place] (1.000-1.030) Urine Protein (Negative) Urine Glucose (UA) (Negative) Urine Ketones (Negative) Urine Blood (Negative) Urine Nitrite (Negative) Urine Bilirubin (Negative) Urine Urobilinogen (Negative) Ur Leukocyte Esterase (Negative) Blood Type Antibody Screen 04/24/20 04/24/20 04/24/20 Range/Units 09:11 09:11 09:15 WBC (4.8-10.8) K/uL RBC (4.2-5.4) M/uL Hgb (12.0-16.0) g/dL Hct (37-47) % MCV (80-100) fL MCH (25-34) pg MCHC (32-36) g/dL RDW Std Deviation (36.4-46.3) fL RDW Coeff of Tamela (11.5-14.5) % Plt Count (130-400) K/uL MPV (7.4-10.4) fL Immature Gran % (Auto) % Neut % (Auto) % Lymph % (Auto) % [place] % (Auto) % Eos % (Auto) % Baso % (Auto) % Neut # (Auto) (1.4-6.5) K/uL Lymph # (Auto) (1.2-3.4) K/uL [place] # (Auto) (0.11-0.59) K/uL Eos # (Auto) (0-0.5) K/uL Baso # (Auto) (0-0.2) K/uL Immature Gran # (Auto) (0.00-0.02) K/uL PT (9.0-12.0) Seconds INR (0.9-1.1) APTT (21.0-31.0) Seconds PTT Ratio Sodium (136-145) mmol/L Potassium 4.0 (3.5-5.1) mmol/L Chloride (98-107) mmol/L Carbon Dioxide (21-32) mmol/L Anion Gap (3-11) BUN (7-18) mg/dl Creatinine (0.6-1.2) mg/dl Est Cr Clr Drug Dosing ml/min Est GFR ( Amer) Est GFR (Non-Af Amer) BUN/Creatinine Ratio (10-20) Glucose (70-99) mg/dl Calcium (8.5-10.1) mg/dl Urine Color Yellow Urine Appearance Clear (Clear) Urine pH 7.0 (4.5-7.5) Ur Specific [place] 1.015 (1.000-1.030) Urine Protein Negative (Negative) Urine Glucose (UA) 3+ H (Negative) Urine Ketones Negative (Negative) Urine Blood Negative (Negative) Urine Nitrite Negative (Negative) Urine Bilirubin Negative (Negative) Urine Urobilinogen Negative (Negative) Ur Leukocyte Esterase Negative (Negative) Blood Type A Negative Antibody Screen NEGATIVE Imaging Data Radiologist's Impression: XR chest 1V portable CLINICAL HISTORY: hip fracture trauma. Pain. COMPARISON STUDY: 10/16/2019 FINDINGS: The bones soft tissues and hemidiaphragms are normal. The cardiomediastinal silhouette is normal. The lungs are clear. The pulmonary vasculature is normal. IMPRESSION: Negative chest. ACT 112: Negative or not required by law. The above report was generated using voice recognition software. It may contain grammatical, syntax or spelling errors. Electronically signed by: Dionisio Banuelos M.D. 04/24/2020 8:58 AM XR femur RT 2V routine, XR hip RT 2V w pelvis CLINICAL HISTORY: Fall. Right hip pain. COMPARISON STUDY: None. FINDINGS: There is an impacted and slightly angulated right femoral neck fracture. No dislocation. The visualized pelvic bones, left hip, and mid to distal right femur are intact. IMPRESSION: Impacted right femoral neck fracture. ACT 112: Negative or not required by law. Electronically signed by: Rohith Duarte M.D. 04/24/2020 7:57 AM ECG Data Attestation: I personally reviewed and interpreted this ECG as follows: Indication: other (pre-op) Rate (beats per minute): 88 Rhythm: normal sinus Findings: no ST depression, no T-wave inversion, no ST elevation, no acute ischemic change and no ectopy Comparison ECG Date: from (10/16/2019) Change: no significant change Blood Pressure Blood Pressure Findings: Elevated blood pressure Blood Pressure Disposition: elevated BP felt to be situational Head Trauma GCS Score: 15 MDM Narrative This 60-year-old female patient presents the emergency department today for evaluation of right hip pain status post fall. This was a mechanical fall. Patient did sustain an impacted right femoral neck fracture. I did contact orthopedics and also consulted with the hospitalist service. The patient will be admitted to the hospital for ongoing management of this fracture. Her pain was well controlled after the 10mg morphine she was given per EMS. Please see hospitalist and orthopedics dictation regarding ongoing management care of this patient. The chart was completed utilizing Headroom voice recognition software. Grammatical errors, random word insertions, pronoun errors, and incomplete sentences are an occasional consequence of this system due to software limitations, ambient noise, and hardware issues. Any formal questions or concerns about the content, text, or information contained within the body of this dictation should be directly addressed to the provider for clarification. Impression & Plan Hip fracture, right, Fall Discharge Plan Visit Data *Final* Discharge Date/Time: 04/24/20 10:09 Chief Complaint: Fall Stated Complaint: FALL/HIP PAIN Other Complaint: Hip Pain ED Provider: Rylan Zelaya ED Midlevel Provider: Vidhya Suh Discharge Problem: Hip fracture, right, Fall Patient Disposition: Admitted As Inpatient Discharge Instructions Interventions: ED Discharge Assessment Last Done: 04/24/20 10:09
--- NOTE | 2020-04-24 07:59 | XRay Report ---
XR femur RT 2V routine, XR hip RT 2V w pelvis CLINICAL HISTORY: Fall. Right hip pain. COMPARISON STUDY: None. FINDINGS: There is an impacted and slightly angulated right femoral neck fracture. No dislocation. Th e visualized pelvic bones, left hip, and mid to distal right femur are intact. IMPRESSION: Impacted right femoral neck fracture. ACT 112: Negative or not required by law. Electronically signed by: Rohith Duarte M.D. 04/24/2020 7:57 AM
[2020-04-24] MEDS ORDERED: MoRPHine SULFATE 4 MG/ML 1 ML CARP\\VIAL IV PRN (08:04)
[2020-04-24] MEDS ORDERED: SODIUM CHLORIDE 0.9% 1000ML 1,000 ML IV ONE (08:30)
[2020-04-24 08:47] LABS: Basophils # (auto) 0.04 K/uL (0-0.2); Basophils % (auto) 0.5 %; Eosinophils # (auto) 0.39 K/uL (0-0.5); Eosinophils % (auto) 5.1 %; Hemoglobin 15.3 g/dL (12.0-16.0); Immature Granulocytes # (auto) 0.05 K/uL (0.00-0.02); Immature Granulocytes % (auto) 0.7 %; Lymphocytes # (auto) 1.72 K/uL (1.2-3.4); Lymphocytes % (auto) 22.6 %; Mean Corpuscular Hemoglobin 31.9 pg (25-34); Mean Corpuscular Hgb Conc 34.8 g/dL (32-36); Mean Corpuscular Volume 91.9 fL (80-100); Mean Platelet Volume 10.2 fL (7.4-10.4); Monocytes % (auto) 7.9 %; Neutrophils # (auto) 4.81 K/uL (1.4-6.5); Neutrophils % (auto) 63.2 %; Platelet Count 250 K/uL (130-400); RDW Coefficient of Variation 12.4 % (11.5-14.5); RDW Standard Deviation 41.7 fL (36.4-46.3); Red Blood Count 4.79 M/uL (4.2-5.4); White Blood Count 7.61 K/uL (4.8-10.8)
--- NOTE | 2020-04-24 08:59 | XRay Report ---
XR chest 1V portable CLINICAL HISTORY: hip fracture trauma. Pain. COMPARISON STUDY: 10/16/2019 FINDINGS: The bones soft tissues and hemidiaphragms are normal. The cardiomediastinal silhouette is n ormal. The lungs are clear. The pulmonary vasculature is normal. IMPRESSION: Negative chest. ACT 112: Negative or not required by law. The above report was generated using voice recognition software. It may contain grammatical, syntax or spelling errors. Electronically signed by: Dionisio Banuelos M.D. 04/24/2020 8:58 AM
--- NOTE | 2020-04-24 09:01 | History & Physical Report ---
Date of Service April 24, 2020 Assessment & Plan (1) Hip fracture, right: This is a 60-year-old female with PMH of DM II, hyperlipidemia, fibromyalgia, history of angioedema in the past and other medical problems listed below who presents after a fall at work this morning and was found to h ave an impacted right femoral neck fracture. -Mechanical fall while at work this morning. Hip/pelvis XR with R impacted right femoral neck fracture -Keeping NPO,bedrest, pain control, gentle IV fluids, alvarado catheter in place, pre-op abx ordered per protocol -[facility] contacted by ED provider - in [place] but will evaluate patient. Anesthesiology also consulted -Vital signs stable, ECG with normal sinus rhythm, negative CXR. Per Revised Cardiac Risk Index for Preoperative Risk, patient is a Class II Risk or 6.0% 30- day risk of , HI, or cardiac arrest (2) Diabetes mellitus, type II: A1c 8.5 in September 2019. Repeat ordered -Hold home agents -SSI while in-patient - initial BSG 220. Will recheck after Novalog and add Lantus if needed -BSG AC HS (3) History of angioedema: History of angioedema with lisinopril and Trulicity. Most recent admission in December 2018 with angioedema in reaction to Trulicity requiring intubation. Epipen and Benadryl continued from home medication list (4) HLD (hyperlipidemia): Continue statin (5) Anxiety: Continue SSRI. Ativan PRN but rarely uses DVT Ppx: SCDs Code status: FULL CODE PCP: Nika Dispo: Admitted to med/surg. Discharge planning per hip fracture protocol. Patient seen in collaboration with Dr. Bhakta. Please see addendum. History of Present Illness Chief Complaint: Fall, hip fracture Primary Care Provider: Aixa Maher, DO This is a 60-year-old female with PMH of DM II, hyperlipidemia, fibromyalgia, history of angioedema in the past and other medical problems listed below who presents after a fall at work this morning. Patient was walking into work and was opening a heavy glass door while carrying things when she lost her balance and fell backwards. Experienced immediate pain in right upper leg that is described as sharp pain on the front of her right thigh with radiation into groin. Denies any numbness or paresthesias of distal extremity. Denies any head trauma or loss of consciousness. Came to ED for further evaluation. Currently not experiencing pain at rest. Denies any fever, chills, lightheadedness, visual changes, chest pain or shortness of breath, abdominal pain, nausea, vomiting, dysuria, diarrhea or constipation. Pain with movement initially 10/10 but now reduced to 5/10 after morphine. History of angioedema with lisinopril and Trulicity. Allergies Allergy/AdvReac Type Severity Reaction Status Date / Time ciprofloxacin [From Cipro] Allergy Severe SEE COMMENT Verified 04/24/20 07:38 dulaglutide [From Trulicity] Allergy Severe ANGIOEDEMA Verified 04/24/20 07:38 lisinopril Allergy Severe SHORTNESS Verified 04/24/20 07:38 OF BREATH nitrofurantoin Allergy Severe SEE COMMENT Verified 04/24/20 07:38 [From Macrobid] MAXI Inhibitors Allergy Unknown Unknown Verified 04/24/20 07:38 amoxicillin Allergy Unknown Unknown Verified 04/24/20 07:38 aripiprazole Allergy Unknown unknown Verified 04/24/20 07:38 cefuroxime Allergy Unknown . Verified 04/24/20 07:38 clavulanic acid Allergy Unknown . Verified 04/24/20 07:38 paroxetine Allergy Unknown . Verified 04/24/20 07:38 Penicillins Allergy Unknown Unknown Verified 04/24/20 07:38 pravastatin [From Pravachol] Allergy Unknown Unknown Verified 04/24/20 07:38 Sulfa (Sulfonamide Allergy Unknown Unknown Verified 04/24/20 07:38 Antibiotics) bupropion [From Wellbutrin] Allergy Unknown Verified 04/24/20 07:38 Cephalosporins Allergy Unknown Verified 04/24/20 07:38 lamotrigine Allergy Unknown Verified 04/24/20 07:38 ANTIHISTAMINES Allergy Intermediate TACHYCARDIA Uncoded 04/24/20 07:38 Home Medications Home Medications Medication Instructions Recorded Confirmed Type epinephrine [EpiPen] 0.3 mg IM Q3H PRN 12/13/18 04/24/20 History escitalopram oxalate 10 mg PO QAM 12/13/18 04/24/20 History metformin 1,000 mg PO BID 12/13/18 04/24/20 History lorazepam [Ativan] 0.5 mg PO DAILY PRN #10 tab 12/16/18 04/24/20 Rx diphenhydramine HCl [Benadryl] 25 mg PO UD PRN 01/09/19 04/24/20 History multivitamin 1 tab PO QDD 01/09/19 04/24/20 History pravastatin 10 mg PO HS 05/04/19 04/24/20 History aspirin 81 mg PO QAM 04/24/20 04/24/20 History cholecalciferol (vitamin D3) 50 mcg PO DAILY 04/24/20 04/24/20 History [Vitamin D3] hydroxyzine HCl 25 mg PO HS 04/24/20 04/24/20 History liraglutide [Victoza 3-David] 1.8 mg SQ QAM 04/24/20 04/24/20 History omega 7-iqm-lmd-fish oil [Fish Oil] 1 cap PO QAM 04/24/20 04/24/20 History Past Med/Surg History Medical History Anxiety Biopsy of breast (Resolved 01/13/12) Deviated nasal septum (Chronic 01/13/12) Diabetes mellitus, type II Elbow fracture, right (Acute) Family history of HI (myocardial infarction) Fibromyalgia History of angioedema HLD (hyperlipidemia) Rib fracture (Resolved) Surgical History History of dental surgery History of hysterectomy Abdominal History of rhinoplasty History of surgery on arm open treatment of fracture of the radial shaft open treatment of fracture of the ulnar shaft History of tubal ligation Family History Mother Breast cancer Diabetes Other Dyslipidemia Gallbladder disease H/O ovarian cystectomy History of IVP Hypertension Social History Smoking Status: Never smoker Hx Alcohol Use: Yes Alcohol type: beer Hx Substance Use: No Preferred Language: Kosovan Communication Ability: Effective Chef & Owner Required: No Beliefs That Will Affect Care: None Current Living Situation: Spouse Other Information That Helps Us Care for You: No Feels Safe at Home: Yes Safety Concerns: Feels Safe At This Time Review of Systems Review of Systems: At least ten systems reviewed and negative except as noted in the HPI. Physical Exam Physical Exam: General Appearance: WD/WN, vitals as above, NAD, sitting up in bed, pleasant, conversing easily Head: normocephalic, atraumatic Eyes: normal inspection, PERRL, conjunctivae normal, anicteric sclerae ENT: external ear and nose normal, oropharynx normal Neck: trachea midline, no thyromegaly normal visual inspection Respiratory: normal respiratory effort, lungs clear to auscultation, no wheeze, rales, rhonchi Cardiovascular: regular rate, rhythm, no murmur, normal peripheral pulses. Vessels: no JVD Chest: normal inspection of chest Abdomen/GI: normal bowel sounds, soft, nontender, no hepatosplenomegaly Extremities/Musculoskeletal: R anterior thigh and groin area TT. Movement limited 2/2 pain. No deformities visualized. Distal extremities NVI. No cyanosis or clubbing Neurologic: PERRL, EOMI, accommodation nl, no face palsy, no dysarthria, CN's II-XI intact bilaterally and moves all extremities Psychiatric: A+Ox3, euthymic affect Skin: no rashes, normal color, warm/dry Results & Data Results & Data ([facility]) Vital Signs (Past 12 Hours) Vital Signs Temp Pulse Pulse Resp BP BP Pulse Ox 04/24/20 08:12 87 18 161/82 H 93 04/24/20 06:39 37.1 C 95 H 177/102 H 97 Laboratory Results Short CBC 04/24/20 Range/Units 06:45 WBC 7.61 (4.8-10.8) K/uL Hgb 15.3 (12.0-16.0) g/dL Hct 44.0 (37-47) % Plt Count 250 (130-400) K/uL BMP 04/24/20 04/24/20 06:45 09:11 Sodium 137 Potassium 4.0 Chloride 102 Carbon Dioxide 27 BUN 13 Creatinine 0.57 L Glucose 220 H Calcium 9.0 Urine 04/24/20 Range/Units 09:15 Urine Color Yellow Urine Appearance Clear (Clear) Urine pH 7.0 (4.5-7.5) Ur Specific [place] 1.015 (1.000-1.030) Urine Protein Negative (Negative) Urine Glucose (UA) 3+ H (Negative) Diagnostic Findings CXR: IMPRESSION: Negative chest. Femur XR: IMPRESSION: Impacted right femoral neck fracture. Hip/pelvis XR: IMPRESSION: Impacted right femoral neck fracture. ECG Rhythm: normal sinus Supervising Physician Co-Signing Physician Notes 60-year-old female with PMH of DM II, hyperlipidemia, fibromyalgia, history of angioedema who presented with left hip pain after mechanical fall. Detailed history and physical exam as detailed by Pam Pires PA-C XR showing impacted Rt femoral fracture. EKG showed NSR Patient currently NPO Awaiting ortho eval and possible surgery Patient is low risk for MACE with surgery Patient was initially on morphine IV for pain control Pain was controlled. However, patient is reporting pruritus around the nose since after coming up from ER. She stated she usually has pruritus to morphine. No sore throat, tongue swelling, SOB, dysphagia Review of patient's records and interactive digital media specialist note show patient is allergic to multiple meds, including NSAIDS and has had angioedema Give benadryl now for pruritus. Reviewed prior pain med tolerance in past hospitalization with Pharmacist Breanna. Patient had tolerated tramadol in the past. Will do scheduled tylenol 650mg q6h for now and tramadol 50mg q4h prn pain Other plan as documented in note by Pam Victoria PA-C
[2020-04-24 09:04] LABS: BUN Creatinine Ratio 21.9 (10-20); Creatinine Clr Calc Pharmacy 109.6 ml/min; Est GFR (African American) 116.8; Est GFR (Non-African American) 100.8
[2020-04-24 09:09] LABS: Partial Thromboplastin Ratio 0.9; Partial Thromboplastin Time 25.9 Seconds (21.0-31.0); Prothrombin Time 10.3 Seconds (9.0-12.0)
[2020-04-24 09:27] LABS: Appearance Urine Clear (Clear); Bilirubin Urine Negative (Negative); Blood Urine Negative (Negative); Color Urine Yellow; Glucose Urine UA 3+ (Negative); Ketones Urine Negative (Negative); Leukocyte Esterase Urine Negative (Negative); Nitrite Urine Negative (Negative); Protein Urine Negative (Negative); Specific Gravity Urine 1.015 (1.000-1.030); Urobilinogen Urine Negative (Negative)
[2020-04-24] MEDS ORDERED: GLUCAGON FOR INJ 1 MG VIAL SQ PRN (10:34)
[2020-04-24] MEDS ORDERED: GLUCOSE 40% GEL 15 GM TUBE PO PRN (10:34)
[2020-04-24] MEDS ORDERED: CARBOHYDRATES FOR HYPOGLYCEMIA PO PRN (10:34)
[2020-04-24] MEDS ORDERED: POLYETHYLENE (MIRALAX) 17 GM PACK PO PRN (10:34)
[2020-04-24] MEDS ORDERED: DEXTROSE 50% 50 ML SYRINGE IV PRN (10:34)
[2020-04-24] MEDS ORDERED: ONDANSETRON INJ 2 MG/ML 2 ML VIAL IV PRN (10:34)
[2020-04-24] MEDS ORDERED: NALOXONE HCL 0.4 MG/1 ML VIAL/CARP IV PRN (10:34)
[2020-04-24] MEDS ORDERED: bisacodyL 10 MG SUPP PR PRN (10:34)
[2020-04-24] MEDS ORDERED: MAGNESIUM HYDROXIDE SUSP 30 ML UDC PO PRN (10:34)
[2020-04-24] MEDS ORDERED: GLUCOSE 10 TABS/TUBE PO PRN (10:34)
[2020-04-24] MEDS ORDERED: ACETAMINOPHEN 325 MG TAB PO PRN (10:34)
[2020-04-24] MEDS: LACTATED RINGER'S 1,000 ML IV SCH ×2 (10:48→21:10)
[2020-04-24] MEDS: MoRPHine SULFATE 2 MG/ML CARP IV PRN ×2 (10:51→12:34)
[2020-04-24] MEDS ORDERED: Nursing to Pharmacy Communication SCH (11:00)
[2020-04-24] MEDS ORDERED: INSULIN ASPART 100 UNITS/ML 3 ML PEN SC SCH (11:30)
[2020-04-24] MEDS: INSULIN ASPART 100 UNITS/ML 3 ML PEN SC SCH ×3 (12:10→21:14)
[2020-04-24] MEDS ORDERED: EPINEPHRINE ADULT AUTO-INJECT 0.3 MG SYR IM PRN (12:19)
[2020-04-24] MEDS ORDERED: LORazepam 0.5 MG TAB PO PRN (12:19)
--- NOTE | 2020-04-24 13:14 | CT Scan Report ---
CT hip RT wo con CT DOSE: 451.95 mGy.cm CLINICAL HISTORY: Right hip pain status post trauma. Fracture. Surgical planning study. TECHNIQUE: Helical images were acquired in the transverse plane. Sagittal and coronal reformatted savana ges were acquired. In addition 3-dimensional reconstructions were obtained. A dose lowering techniqu e was utilized adhering to the principles of ALARA. COMPARISON STUDY: X-ray study dated 04/24/2020 FINDINGS: There is an indwelling Goetz catheter. There is no evidence of pathologic adenopathy. There is a mildly displaced and angulated oblique fracture of the femoral neck. Laterally, the fractu re line begins the subcapital portion of the femoral neck and medially it extends to the mid femoral neck level. There is no intertrochanteric involvement. IMPRESSION: Mildly displaced angulated femoral neck fracture with no evidence of intertrochanteric e xtension. ACT 112: Negative or not required by law. Electronically signed by: Primo Ugalde M.D. 04/24/2020 1:13 PM
[2020-04-24] MEDS ORDERED: DiphenhydrAMINE HCL 50 MG/ML VIAL IV PRN (14:39)
[2020-04-24] MEDS: MULTIVITAMIN TAB PO SCH (15:45)
[2020-04-24] MEDS: ACETAMINOPHEN 325 MG TAB PO SCH ×2 (16:09→22:05)
[2020-04-24] MEDS: TRAMADOL HCL 50 MG TABLET PO PRN ×2 (17:53→22:05)
--- NOTE | 2020-04-24 18:41 | Anesthesiology Consultation ---
Date of Service April 24, 2020 Assessment & Plan Chart Review Chart Review: Acceptable Risk for Surgery and Patient NOT seen in Pre Admission Testing History Surgery Operation Date: 04/25/20 12:10 Proposed Procedures p Right Anterior Total Hip Arthroplasty - Trent Ramos DO Height/Weight Height: 5 ft 6 in Weight: 76.4 kg Allergies Allergy/AdvReac Type Severity Reaction Status Date / Time ciprofloxacin [From Cipro] Allergy Severe SEE COMMENT Verified 04/24/20 07:38 dulaglutide [From Trulicity] Allergy Severe ANGIOEDEMA Verified 04/24/20 07:38 lisinopril Allergy Severe SHORTNESS Verified 04/24/20 07:38 OF BREATH nitrofurantoin Allergy Severe SEE COMMENT Verified 04/24/20 07:38 [From Macrobid] morphine Allergy Mild pruritus Verified 04/24/20 16:09 MAXI Inhibitors Allergy Unknown Unknown Verified 04/24/20 07:38 amoxicillin Allergy Unknown Unknown Verified 04/24/20 07:38 aripiprazole Allergy Unknown unknown Verified 04/24/20 07:38 cefuroxime Allergy Unknown . Verified 04/24/20 07:38 clavulanic acid Allergy Unknown . Verified 04/24/20 07:38 paroxetine Allergy Unknown . Verified 04/24/20 07:38 Penicillins Allergy Unknown Unknown Verified 04/24/20 07:38 pravastatin [From Pravachol] Allergy Unknown Unknown Verified 04/24/20 07:38 Sulfa (Sulfonamide Allergy Unknown Unknown Verified 04/24/20 07:38 Antibiotics) bupropion [From Wellbutrin] Allergy Unknown Verified 04/24/20 07:38 Cephalosporins Allergy Unknown Verified 04/24/20 07:38 lamotrigine Allergy Unknown Verified 04/24/20 07:38 ANTIHISTAMINES Allergy Intermediate TACHYCARDIA Uncoded 04/24/20 07:38 Medications Home Medications Medication Instructions Recorded Confirmed Last Taken epinephrine [EpiPen] 0.3 mg IM Q3H PRN 12/13/18 04/24/20 Unknown escitalopram oxalate 10 mg PO QAM 12/13/18 04/24/20 04/24/20 metformin 1,000 mg PO BID 12/13/18 04/24/20 04/24/20 lorazepam [Ativan] 0.5 mg PO DAILY PRN #10 tab 12/16/18 04/24/20 Unknown diphenhydramine HCl [Benadryl] 25 mg PO UD PRN 01/09/19 04/24/20 01/31/19 50 MG multivitamin 1 tab PO QDD 01/09/19 04/24/20 04/23/20 pravastatin 10 mg PO HS 05/04/19 04/24/20 04/23/20 aspirin 81 mg PO QAM 04/24/20 04/24/20 04/24/20 cholecalciferol (vitamin D3) 50 mcg PO DAILY 04/24/20 04/24/20 Unknown [Vitamin D3] hydroxyzine HCl 25 mg PO HS 04/24/20 04/24/20 04/23/20 liraglutide [Victoza 3-David] 1.8 mg SQ QAM 04/24/20 04/24/20 04/24/20 omega 4-ncm-psm-fish oil [Fish Oil] 1 cap PO QAM 04/24/20 04/24/20 04/24/20 Active Medications Generic Name Dose Route Start Last Admin Trade Name Freq PRN Reason Stop Dose Admin Acetaminophen 650 mg 04/24/20 16:00 04/24/20 16:09 Tylenol PO 05/24/20 15:59 650 mg Q6H CATARINO Administration Diphenhydramine HCl 12.5 mg 04/24/20 14:39 04/24/20 16:05 Benadryl IV 05/24/20 14:38 12.5 mg ONCE PRN Administration pruritus Lactated Ringer's 1,000 mls @ 100 mls/hr 04/24/20 10:34 04/24/20 10:48 Lr IV 05/24/20 10:33 100 mls/hr .Q10H CATARINO Administration Insulin Aspart 0 units 04/24/20 12:00 04/24/20 12:10 Novolog Flexpen SC 05/24/20 11:59 1 units Q6 CATARINO Administration Multivitamins 1 tab 04/24/20 16:30 04/24/20 15:45 Multivitamin Tab PO 05/24/20 16:29 Not Given QDD CATARINO Tramadol HCl 50 mg 04/24/20 15:56 04/24/20 17:53 Ultram PO 05/24/20 15:55 50 mg Q4H PRN Administration Pain Past Medical History Medical History Anxiety Biopsy of breast (Resolved 01/13/12) Deviated nasal septum (Chronic 01/13/12) Diabetes mellitus, type II Elbow fracture, right (Acute) Family history of NV (myocardial infarction) Fibromyalgia History of angioedema HLD (hyperlipidemia) Rib fracture (Resolved) Past Family History Family History Mother Breast cancer Diabetes Other Dyslipidemia Gallbladder disease H/O ovarian cystectomy History of IVP Hypertension Past Surgical History Surgical History History of dental surgery History of hysterectomy Abdominal History of rhinoplasty History of surgery on arm open treatment of fracture of the radial shaft open treatment of fracture of the ulnar shaft History of tubal ligation Social History Smoking Status: Never smoker Hx Alcohol Use: Yes Alcohol type: beer alcohol intake frequency: a few times a month Hx Substance Use: No Physical Exam Vital Signs Last Vital Signs Temp 37.0 C 04/24/20 15:32 Pulse 89 04/24/20 15:32 Resp 16 04/24/20 15:32 BP 105/67 04/24/20 15:32 Pulse Ox 92 04/24/20 15:32 Testing Laboratory Results 04/24/20 06:45 04/24/20 09:11 PT 10.3 Seconds (9.0-12.0) 04/24/20 06:45 INR 1.0 (0.9-1.1) 04/24/20 06:45 APTT 25.9 Seconds (21.0-31.0) 04/24/20 06:45 Urine Color Yellow 04/24/20 09:15 Urine Appearance Clear (Clear) 04/24/20 09:15 Urine pH 7.0 (4.5-7.5) 04/24/20 09:15 Ur Specific [place] 1.015 (1.000-1.030) 04/24/20 09:15 Urine Protein Negative (Negative) 04/24/20 09:15 Urine Glucose (UA) 3+ (Negative) H 04/24/20 09:15 Urine Ketones Negative (Negative) 04/24/20 09:15 Urine Nitrite Negative (Negative) 04/24/20 09:15 Ur Leukocyte Esterase Negative (Negative) 04/24/20 09:15 Blood Type A Negative 04/24/20 09:11 Antibody Screen NEGATIVE 04/24/20 09:11 04/24/20 04/24/20 17:48 12:04 POC Glucose 142 H 182 H Electrocardiogram Date: 04/24/20 Findings: + NSR @ (60 bpm)
--- NOTE | 2020-04-24 20:11 | Orthopedic Consultation ---
Date of Consultation April 24, 2020 Assessment & Plan (1) Hip fracture, right: Displaced right femoral neck fracture Plan for R anterior DEBORAH -NPO after midnight -IV abx technical support consultant to OR -hold anticoagulation -NWB RLE Thank you for the consultation History of Present Illness Reason for Consultation: Right hip fracture Attending Physician: Jennyfer Bhakta MD History of Present Illness The patient is a 60 year old female who presents with acute traumatic right hip pain sustained today after a mechanical fall at work. XRs taken at [facility] ED demonstrates a right hip fracture and the patient was admitted for further treatment of her hip fracture. The patient denies any associated injuries or numbness or tingling in her RLE. Allergies Allergy/AdvReac Type Severity Reaction Status Date / Time ciprofloxacin [From Cipro] Allergy Severe SEE COMMENT Verified 04/24/20 07:38 dulaglutide [From Trulicity] Allergy Severe ANGIOEDEMA Verified 04/24/20 07:38 lisinopril Allergy Severe SHORTNESS Verified 04/24/20 07:38 OF BREATH nitrofurantoin Allergy Severe SEE COMMENT Verified 04/24/20 07:38 [From Macrobid] morphine Allergy Mild pruritus Verified 04/24/20 16:09 MAXI Inhibitors Allergy Unknown Unknown Verified 04/24/20 07:38 amoxicillin Allergy Unknown Unknown Verified 04/24/20 07:38 aripiprazole Allergy Unknown unknown Verified 04/24/20 07:38 cefuroxime Allergy Unknown . Verified 04/24/20 07:38 clavulanic acid Allergy Unknown . Verified 04/24/20 07:38 paroxetine Allergy Unknown . Verified 04/24/20 07:38 Penicillins Allergy Unknown Unknown Verified 04/24/20 07:38 pravastatin [From Pravachol] Allergy Unknown Unknown Verified 04/24/20 07:38 Sulfa (Sulfonamide Allergy Unknown Unknown Verified 04/24/20 07:38 Antibiotics) bupropion [From Wellbutrin] Allergy Unknown Verified 04/24/20 07:38 Cephalosporins Allergy Unknown Verified 04/24/20 07:38 lamotrigine Allergy Unknown Verified 04/24/20 07:38 ANTIHISTAMINES Allergy Intermediate TACHYCARDIA Uncoded 04/24/20 07:38 Home Medications Home Medications Medication Instructions Recorded Confirmed Type epinephrine [EpiPen] 0.3 mg IM Q3H PRN 12/13/18 04/24/20 History escitalopram oxalate 10 mg PO QAM 12/13/18 04/24/20 History metformin 1,000 mg PO BID 12/13/18 04/24/20 History lorazepam [Ativan] 0.5 mg PO DAILY PRN #10 tab 12/16/18 04/24/20 Rx diphenhydramine HCl [Benadryl] 25 mg PO UD PRN 01/09/19 04/24/20 History multivitamin 1 tab PO QDD 01/09/19 04/24/20 History pravastatin 10 mg PO HS 05/04/19 04/24/20 History aspirin 81 mg PO QAM 04/24/20 04/24/20 History cholecalciferol (vitamin D3) 50 mcg PO DAILY 04/24/20 04/24/20 History [Vitamin D3] hydroxyzine HCl 25 mg PO HS 04/24/20 04/24/20 History liraglutide [Victoza 3-David] 1.8 mg SQ QAM 04/24/20 04/24/20 History omega 8-cat-jex-fish oil [Fish Oil] 1 cap PO QAM 04/24/20 04/24/20 History Patient History Medical History Anxiety Biopsy of breast (Resolved 01/13/12) Deviated nasal septum (Chronic 01/13/12) Diabetes mellitus, type II Elbow fracture, right (Acute) Family history of [place] (myocardial infarction) Fibromyalgia History of angioedema HLD (hyperlipidemia) Rib fracture (Resolved) Surgical History History of dental surgery History of hysterectomy Abdominal History of rhinoplasty History of surgery on arm open treatment of fracture of the radial shaft open treatment of fracture of the ulnar shaft History of tubal ligation Family History Mother Breast cancer Diabetes Other Dyslipidemia Gallbladder disease H/O ovarian cystectomy History of IVP Hypertension Social History Smoking Status: Never smoker Hx Alcohol Use: Yes Alcohol type: beer Hx Substance Use: No Preferred Language: Sami Communication Ability: Effective Rocket Test Fire Worker Required: No Beliefs That Will Affect Care: None Current Living Situation: Spouse Other Information That Helps Us Care for You: No Feels Safe at Home: Yes Safety Concerns: Feels Safe At This Time Review of Systems Review of Systems: All systems reviewed & are unremarkable except as noted in HPI & below Constitutional: as per Subjective / HPI Physical Exam Physical Exam: RLE NVSI +EHL/FHL/TA/GS SILT grossly, +2 DP pulse, compartments soft NT, RLE short and externally rotated. Constitutional: WD/WN, vitals as above Results & Data ([facility]) Vital Signs (Past 12 Hours) Vital Signs Temp Pulse Pulse Pulse Resp BP Pulse Ox 04/24/20 15:32 37.0 C 89 16 105/67 92 04/24/20 10:20 37.1 C 85 16 128/75 92 04/24/20 10:00 92 H 18 124/61 92 04/24/20 08:12 87 18 161/82 H 93 Diagnostic Findings XR femur RT 2V routine, XR hip RT 2V w pelvis CLINICAL HISTORY: Fall. Right hip pain. COMPARISON STUDY: None. FINDINGS: There is an impacted and slightly angulated right femoral neck fractur e. No dislocation. The visualized pelvic bones, left hip, and mid to distal right femur are intact. IMPRESSION: Impacted right femoral neck fracture. XR femur RT 2V routine, XR hip RT 2V w pelvis CLINICAL HISTORY: Fall. Right hip pain. COMPARISON STUDY: None. FINDINGS: There is an impacted and slightly angulated right femoral neck fracture. No dislocation. The visualized pelvic bones, left hip, and mid to distal right femur are intact. IMPRESSION: Impacted right femoral neck fracture. ACT 112: Negative or not required by law. CT hip RT wo con CT DOSE: 451.95 mGy.cm CLINICAL HISTORY: Right hip pain status post trauma. Fracture. Surgical planning study. TECHNIQUE: Helical images were acquired in the transverse plane. Sagittal and coronal reformatted images were acquired. In addition 3-dimensional reconstructions were obtained. A dose lowering technique was utilized adhering to the principles of ALARA. COMPARISON STUDY: X-ray study dated 04/24/2020 FINDINGS: There is an indwelling Goetz catheter. There is no evidence of pathologic adenopathy. There is a mildly displaced and angulated oblique fracture of the femoral neck. Laterally, the fracture line begins the subcapital portion of the femoral neck and medially it extends to the mid femoral neck level. There is no intertrochanteric involvement. IMPRESSION: Mildly displaced angulated femoral neck fracture with no evidence of intertrochanteric extension. (1) Hip fracture, right Encounter type: initial encounter Fracture type: closed Qualified Code(s): S72.001A - Fracture of unspecified part of neck of right femur, initial enco unter for closed fracture
[2020-04-24] MEDS: PRAVASTATIN SOD 10 MG TAB PO SCH (21:11)
[2020-04-24] MEDS: DOCUSATE SODIUM/SENNA 50/8.6MG TAB PO SCH (21:12)
--- NOTE | 2020-04-24 22:19 | Electrocardiogram Report ---
Test Reason : Blood Pressure : / mmHG Vent. Rate : 088 BPM Atrial Rate : 088 BPM P-R Int : 138 ms QRS Dur : 084 ms QT Int : 368 ms P-R-T Axes : 042 053 039 degrees QTc Int : 445 ms Normal sinus rhythm Normal ECG When compared with ECG of 16-OCT-2019 04:47, No significant change was found Confirmed by Bruno England ([id number]) on 04/24/2020 10:18:51 PM Referred By: REFERRED SELF Confirmed By:Bruno England
[2020-04-25] MEDS: INSULIN ASPART 100 UNITS/ML 3 ML PEN SC SCH ×5 (00:21→21:40)
[2020-04-25] MEDS: TRAMADOL HCL 50 MG TABLET PO PRN ×2 (00:48→09:11)
[2020-04-25] MEDS: ACETAMINOPHEN 325 MG TAB PO SCH ×3 (04:57→16:44)
[2020-04-25] MEDS ORDERED: CLINDAMYCIN 900 MG in DEXTROSE 5% 50 ML IV SCH ×2 (06:00→16:24)
[2020-04-25 06:47] LABS: Hemoglobin 13.5 g/dL (12.0-16.0); Mean Corpuscular Hemoglobin 31.1 pg (25-34); Mean Corpuscular Hgb Conc 33.8 g/dL (32-36); Mean Corpuscular Volume 92.2 fL (80-100); Mean Platelet Volume 9.3 fL (7.4-10.4); Platelet Count 212 K/uL (130-400); RDW Coefficient of Variation 12.5 % (11.5-14.5); RDW Standard Deviation 42.3 fL (36.4-46.3); Red Blood Count 4.34 M/uL (4.2-5.4); White Blood Count 7.34 K/uL (4.8-10.8)
[2020-04-25] MEDS ORDERED: BUPIVACAINE 0.5 % 5 MG/1 ML PF 10ML VIAL ONE ×2 (06:48→12:54)
[2020-04-25] MEDS: LACTATED RINGER'S 1,000 ML IV SCH ×2 (07:19→16:44)
[2020-04-25 07:21] LABS: BUN Creatinine Ratio 20.1 (10-20); Calcium 7.9 mg/dl (8.5-10.1); Creatinine Clr Calc Pharmacy 145.3 ml/min; Est GFR (African American) 128.1; Est GFR (Non-African American) 110.6; Potassium 3.7 mmol/L (3.5-5.1)
[2020-04-25] MEDS: CHOLECALCIFEROL 1,000 UNITS 25 MCG TAB PO SCH (09:11)
[2020-04-25] MEDS: ESCITALOPRAM OXALATE 10 MG TAB PO SCH (09:12)
--- NOTE | 2020-04-25 10:56 | Hospitalist Progress Note ---
Date of Service April 25, 2020 Assessment & Plan (1) Fall: (2) Hip fracture, right: 60-year-old female with PMH of DM II, hyperlipidemia, fibromyalgia, history of angioedema in the past and other medical problems listed below who presents after a fall at work this morning and was found to have an impacted right femoral neck fracture. Currently NPO awaiting surgery Continue pain management Continue current regimen - tylenol janeth and tramadol prn Avoid NSAIDS due to reported allergy per [employer] [facility] note and morphine due to pruritus reported to it on this admission Will need PT/OT post op Check Hb in AM post op (3) Diabetes mellitus, type II: A1c 8.5 in September 2019. Hold home agents Continue ISS per protocol Will resume po diet once fully recovered after surgery (4) History of angioedema: History of angioedema with lisinopril and Trulicity. Most recent admission in December 2018 with angioedema in reaction to Trulicity requiring intubation. Epipen and Benadryl continued from home medication list (5) HLD (hyperlipidemia): Continue statin (6) Anxiety: Continue SSRI. Ativan PRN but rarely uses DVT Ppx: SCDs for now Code status: FULL CODE Admission and Anticipated Discharge Date Admission Date: April 24, 2020 Subjective Patient seen and examined. Reports right hip pain, mild to moderate, worse with movement. States pain is currently controlled on current regimen Pruritus reported yesterday with morphine resolved with benadryl. Denied any fevers, chills, nausea, vomiting Denied any abd pain, constipation Denied any urinary symptoms Physical Exam Constitutional: + well hydrated and average body habitus; no acute distress Eyes: PERRL, conjunctivae normal, anicteric sclerae ENMT: external ear and nose normal, oropharynx normal Respiratory: normal respiratory effort, lungs clear to auscultation Cardiovascular: RRR, no murmur, no edema Gastrointestinal (Abdomen): normal bowel sounds, soft, nontender, no hepatosplenomegaly Musculoskeletal: Tenderness over right hip, mildly shortened with external rotation, Pedal pulse intact. No bruise or ulceration Neurologic: PERRL, EOMI, accommodation nl, no face palsy, no dysarthria Psychiatric: A+Ox3, euthymic affect Results & Data Results & Data ([facility]) Vital Signs (Past 12 Hours) Vital Signs Temp Pulse Pulse Resp BP Pulse Ox Pulse Ox 04/25/20 07:42 37 C 88 18 137/78 90 04/25/20 00:05 94 04/24/20 22:58 36.9 C 89 16 113/64 94 Laboratory Results Laboratory Results - last 24 hr 04/24/20 04/24/20 04/24/20 14:10 14:10 17:48 WBC RBC Hgb Hct MCV MCH MCHC RDW Std Deviation RDW Coeff of Tamela Plt Count MPV Sodium Potassium Chloride Carbon Dioxide Anion Gap BUN Creatinine Est Cr Clr Drug Dosing Est GFR ( Amer) Est GFR (Non-Af Amer) BUN/Creatinine Ratio Glucose POC Glucose 142 H Calcium COVID-19 Eval Order Covid19 Done at [facility] COVID-19 PCR NEGATIVE 04/24/20 04/25/20 04/25/20 20:56 00:18 05:58 WBC RBC Hgb Hct MCV MCH MCHC RDW Std Deviation RDW Coeff of Tamela Plt Count MPV Sodium Potassium Chloride Carbon Dioxide Anion Gap BUN Creatinine Est Cr Clr Drug Dosing Est GFR ( Amer) Est GFR (Non-Af Amer) BUN/Creatinine Ratio Glucose POC Glucose 152 H 135 H 134 H Calcium COVID-19 Eval Order COVID-19 PCR 04/25/20 04/25/20 04/25/20 06:05 06:05 07:48 WBC 7.34 RBC 4.34 Hgb 13.5 Hct 40.0 MCV 92.2 MCH 31.1 MCHC 33.8 RDW Std Deviation 42.3 RDW Coeff of Tamela 12.5 Plt Count 212 MPV 9.3 Sodium 140 Potassium 3.7 Chloride 106 Carbon Dioxide 28 Anion Gap 6.0 BUN 9 Creatinine 0.43 L Est Cr Clr Drug Dosing 145.3 Est GFR ( Amer) 128.1 Est GFR (Non-Af Amer) 110.6 BUN/Creatinine Ratio 20.1 H Glucose 126 H POC Glucose 139 H Calcium 7.9 L COVID-19 Eval Order COVID-19 PCR 04/25/20 11:53 WBC RBC Hgb Hct MCV MCH MCHC RDW Std Deviation RDW Coeff of Tamela Plt Count MPV Sodium Potassium Chloride Carbon Dioxide Anion Gap BUN Creatinine Est Cr Clr Drug Dosing Est GFR ( Amer) Est GFR (Non-Af Amer) BUN/Creatinine Ratio Glucose POC Glucose 140 H Calcium COVID-19 Eval Order COVID-19 PCR (1) Hip fracture, right Encounter type: initial encounter Fracture type: closed Qualified Code(s): S72.001A - Fracture of unspecified part of neck of right femur, initial encounter for closed fracture (2) Fall Encounter type: initial encounter Qualified Code(s): W19.XXXA - Unspecified fall, initial encounter
[2020-04-25] MEDS ORDERED: ACETAMINOPHEN 1000 MG/100 ML IV IV PRN (11:09)
[2020-04-25] MEDS ORDERED: MIDAZOLAM HCL 1 MG/ML 2ML VIAL ONE (12:01)
[2020-04-25] MEDS ORDERED: fentaNYL citrate 100 MCG/2 ML VIAL ONE (12:01)
[2020-04-25] MEDS ORDERED: LIDOCAINE HCL 2% 2 ML VIAL/AMP(20MG/ML) INFIL ONE (12:01)
[2020-04-25] MEDS ORDERED: PROPOFOL IV EMULSION 10 MG/ML 20 ML VIAL IV ONE ×2 (12:01→12:40)
[2020-04-25] MEDS ORDERED: BACITRACIN INJ 50,000 UNIT VIAL ONE (12:36)
[2020-04-25] MEDS ORDERED: ORTHO JOINT ANESTHETIC ONE (12:36)
--- NOTE | 2020-04-25 12:40 | History & Physical Bridge Note ---
Date of Service April 25, 2020 History & Physical Bridge Note I have examined the patient, reviewed the History & Physical and in the interval since the performance of the History & Physical I have noted the following changes of clinical significance: no changes noted
--- NOTE | 2020-04-25 12:41 | Orthopedic Progress Note ---
Date of Service April 25, 2020 Assessment & Plan (1) Hip fracture, right: The patient is a 60-year-old female with displaced right femoral neck fracture sustained after a fall from standing height. The patient was medically stabilized on 04/25/2012. I indicated the patient for right anterior total hip arthroplasty. The patient was informed of the risks and benefits of surgery, which include but not limited to infection, bleeding, blood clots, damage to nerves, vessels, bone and soft tissue, dislocation, leg length discrepancy, need for additional surgery and . The patient chose to move forward with surgical intervention and informed consent was obtained. Admission and Anticipated Discharge Date Admission Date: April 24, 2020 Subjective Patient seen in preoperative holding, comfortable, pain well controlled, no acute issues overnight. Review of Systems Review of Systems: All systems reviewed & are unremarkable except as noted in HPI & below Constitutional: as per Subjective / HPI Physical Exam Physical Exam: RLE NVSI +EHL/FHL/TA/GS SILT grossly, +2 DP pulse, compartments soft NT, short externally rotated Constitutional: WD/WN, vitals as above Results & Data ([facility]) Vital Signs (Past 12 Hours) Vital Signs Temp Pulse Pulse Resp BP Pulse Ox 04/25/20 11:37 37.0 C 90 16 137/74 92 04/25/20 07:42 37 C 88 18 137/78 90 (1) Hip fracture, right Encounter type: initial encounter Fracture type: closed Qualified Code(s): S72.001A - Fracture of unspecified part of neck of right femur, initial encounter for closed fracture
[2020-04-25] MEDS ORDERED: ROPIVACAINE 0.5% HCL/PF 150 MG, BUPIVACAINE 0.5% MPF 30 ML, EPINEPHrine 30MG/30ML (OR U... INSTIL SCH (12:45)
[2020-04-25] MEDS ORDERED: ATROPINE SULFATE 0.1 MG/ML 10ML SYR IV PRN (12:50)
[2020-04-25] MEDS ORDERED: fentaNYL citrate 100 MCG/2 ML VIAL IV PRN (12:50)
[2020-04-25] MEDS ORDERED: ONDANSETRON INJ 2 MG/ML 2 ML VIAL IV PRN ×2 (12:50→16:24)
[2020-04-25] MEDS ORDERED: ePHEDrine sulfate 50 MG/ML AMP IV PRN (12:50)
[2020-04-25] MEDS ORDERED: GLYCOPYRROLATE 0.2 MG/ML VIAL ONE (13:13)
[2020-04-25] MEDS ORDERED: TRANEXAMIC ACID / 0.7% NACL 1,000 MG/100 ML BAG IV STA ×2 (13:25→13:26)
--- NOTE | 2020-04-25 14:42 | Post Operative Brief Note ---
Immediate Post Op Note v1 Date of Surgery April 25, 2020 Pre & Post Diagnosis Operation Date: 04/25/20 12:10 Pre-Op Diagnosis: RIGHT FEMORAL NECK FRACTURE Post-Op Diagnosis: RIGHT FEMORAL NECK FRACTURE I identified the patient and participated in the time-out.: Yes Procedure Operation Date: 04/25/20 12:10 Actual Procedures p Right Anterior Total Hip Arthroplasty(Right) - Trent Ramos DO Surgeon Trent Ramos DO Market Development Analyst Matthias castellanos Estimated Blood Loss 155 Findings Consistent with Post-Op Diagnosis Fluids 500 cc LR Specimens Femoral head Anesthesia Type Spinal MAC Complications none Disposition Disposition: Recovery Room Overlapping Procedure I was present for: the critical portions of procedure. I was immediately available: during the entire case. Back up surgeon: was not required during procedure.
--- NOTE | 2020-04-25 14:46 | Operative Report ---
Post Operative Report Pre & Post Diagnosis Operation Date: 04/25/20 12:10 Pre-Op Diagnosis: RIGHT FEMORAL NECK FRACTURE Post-Op Diagnosis: RIGHT FEMORAL NECK FRACTURE I identified the patient and participated in the time-out.: Yes Procedure Operation Date: 04/25/20 12:10 Actual Procedures p Right Anterior Total Hip Arthroplasty(Right) - Trent Ramos DO Surgeon Trent Ramos, Production Manager Matthias castellanos Estimated Blood Loss 155 Findings Consistent with Post-Op Diagnosis Specimens Femoral head Anesthesia Type Spinal MAC Complications none Disposition Disposition: Recovery Room Indications The patient is a young active 60 year old female who presents with acute traumatic right hip pain sustained after a mechanical fall at work. XRs taken at [facility] ED demonstrates a displaced right femoral neck fracture and the patient was admitted for further treatment of her hip fracture. The patient denies any associated injuries or numbness or tingling in her RLE. The patient was medically stabilized on 04/25/2012. I indicated the patient for right anterior total hip arthroplasty. The patient was informed of the risks and benefits of surgery, which include but not limited to infection, bleeding, blood clots, damage to nerves, vessels, bone and soft tissue, dislocation, leg length discrepancy, need for additional surgery and . The patient chose to move forward with surgical intervention and informed consent was obtained. Description of Procedure COMPONENTS USED: [employer] hip system: Acetabulum size 50, femur size 6 standard offset, femoral head 32+4, liner 5032, acetabular screw 25 mm x 1. DESCRIPTION OF PROCEDURE: Following satisfactory spinal anesthesia, the patient was placed supine on the OR table. The left leg was placed in the well leg curtis and the right leg in the traction device. The right leg was prepared with ChloraPrep and draped sterilely. A surgical timeout was performed, patient identified and site noe verified. Appropriate antibiotics were given. A standard anterior approach in the interval between the sartorius and tensor muscles was performed. Dissection was carried down through subcutaneous tissues . Electrocautery was utilized for hemostasis. Circumflex femoral vessels were identified, tied and ligated. The anterior capsular fat pad was removed and the capsulotomy was performed revealing the femoral neck fracture and hematoma. We evacuated hematoma and a femoral neck cut was made with reciprocating saw and the bone fragments/head removed. The acetabular self-retraining retractor was placed. Acetabular reaming was completed under fluoroscopic guidance, a 50 shell was impacted into an anatomic position and secured with a dome screw. Local anesthetic was placed and following irrigation, the polyethylene liner was placed. The femur was placed into position of external rotation, extension and adduction. Femoral canal was prepared up to the size 6 standard offset. Trial reduction with a 32+4 neck length head showed good soft tissue tension, leg lengths restored, and good fit and fill of the proximal canal using fluoroscopic landmarks. The hip was dislocated. The trial component was removed. The final implant was placed. The hip was irrigated with sterile saline solution and reduced. A Betadine soak was performed. After 3 minutes, the hip was once more irrigated with copious sterile saline solution with bacitracin. Izzy-incisional soft tissue was injected utilizing [place] [employer]omix which includes a combination of Ropivicaine 0.5% 150mg, Bupivicaine 0.5%/Epinephrine 1:200,000 30ml, Toradol 30mg, Dexamethasone 4mg, Ketamine 10mg, Clonidine 100mcg and NSS 30ml solution. The capsule was then closed with 1-0 Vicryl interrupted figure of eight sutures. The fascia was closed with a running suture of #1 Vicryl, the subcutaneous tissues with 2-0 Vicryl and the skin was closed with milla and a sterile dry dressing was applied which included Margarita incisional VAC. The patient tolerated the procedure well and was transported to PACU in stable condition. Due to the complex nature of the procedure, the entire surgery was performed with the operational assistance of Solitario Wylie PA-C. The real estate legal assistant, under direct supervision, was involved in the actual performance of all aspects of the surgical procedure including patient positioning, hemostasis, tissue retraction, instrument management and wound closure. I attest to the content of the Intraoperative Record and any orders documented therein. Any exceptions are noted below.
--- NOTE | 2020-04-25 14:51 | Fluoroscopy Report ---
FL hip RT 1V CLINICAL HISTORY: RT ANTERIOR TOTAL COMPARISON STUDY: None FLUOROSCOPY TIME: 20 seconds NUMBER OF FLUOROSCOPIC IMAGES: 2 FINDINGS: Image intensifier support for right hip total arthroplasty IMPRESSION: Image intensifier support for a total right hip arthroplasty. ACT 112: Negative or not required by law. The above report was generated using voice recognition software. It may contain grammatical, syntax or spelling errors. Electronically signed by: Dionisio Banuelos M.D. 04/25/2020 2:50 PM
--- NOTE | 2020-04-25 15:30 | XRay Report ---
XR hip 1V RT w pelvis CLINICAL HISTORY: Postoperative evaluation. COMPARISON: Right hip radiographs and CT of the right hip April 24, 2020. FINDINGS: Alignment of the total right hip arthroplasty is anatomic. There is an acetabular screw. T here are skin milla. No unexpected radiopaque foreign bodies are noted. IMPRESSION: Expected findings following total right hip arthroplasty. ACT 112: Negative or not required by law. Electronically signed by: Mitul Carr M.D. 04/25/2020 3:29 PM
--- NOTE | 2020-04-25 16:17 | Anesthesiology Progress Note ---
Date of Service April 25, 2020 Anesthesia Post Procedure Vital Signs Vital Signs: Temp Pulse Pulse Pulse Resp BP BP 04/25/20 16:15 88 14 120/58 L 04/25/20 16:00 79 13 112/59 L 04/25/20 15:45 74 12 121/63 04/25/20 15:35 36.4 C L 79 16 129/67 04/25/20 15:25 90 13 131/72 04/25/20 15:15 87 12 140/75 04/25/20 15:05 87 15 130/72 04/25/20 14:59 36.7 C 100 H 15 131/71 04/25/20 11:37 37.0 C 90 16 137/74 04/25/20 07:42 37 C 88 18 137/78 04/25/20 00:05 04/24/20 22:58 36.9 C 89 16 113/64 Pulse Ox Pulse Ox 04/25/20 16:15 97 04/25/20 16:00 97 04/25/20 15:45 98 04/25/20 15:35 94 04/25/20 15:25 94 04/25/20 15:15 100 04/25/20 15:05 100 04/25/20 14:59 100 04/25/20 11:37 92 04/25/20 07:42 90 04/25/20 00:05 94 04/24/20 22:58 94 Pain Intensity Right Hip: Pain Intensity: 0 Transfer of Care Handoff Completed per policy Notes Mental Status: alert / awake / arousable Patient Amnestic to Procedure: Yes Nausea / Vomiting: adequately controlled Pain: adequately controlled Airway Patency, RR, SpO2: stable & adequate BP & HR: stable & adequate Hydration State: stable & adequate Neuraxial Anesthesia: was administered and sensory block is resolving Anesthetic Complications: no major complications apparent
[2020-04-25] MEDS ORDERED: MAGNESIUM HYDROXIDE SUSP 30 ML UDC PO PRN (16:24)
[2020-04-25] MEDS ORDERED: bisacodyL 10 MG SUPP PR PRN (16:24)
[2020-04-25] MEDS ORDERED: NALOXONE HCL 0.4 MG/1 ML VIAL/CARP IV PRN (16:24)
[2020-04-25] MEDS ORDERED: METOCLOPRAMIDE HCL INJ 5 MG/ML 2 ML VIAL IV PRN (16:24)
[2020-04-25] MEDS ORDERED: HYDROmorphone INJ 0.5 MG/0.5 ML SYR IV PRN (16:24)
[2020-04-25] MEDS ORDERED: Nursing to Pharmacy Communication SCH (16:30)
[2020-04-25] MEDS: SODIUM CHLORIDE 0.9% 1000ML 1,000 ML IV SCH (16:52)
[2020-04-25] MEDS: MULTIVITAMIN TAB PO SCH (18:13)
[2020-04-25] MEDS: KETOROLAC TROMETHAMINE 15 MG/ML VIAL IV SCH ×2 (18:25→23:37)
--- NOTE | 2020-04-25 19:23 | Orthopedic Progress Note ---
Date of Service April 25, 2020 Assessment & Plan (1) Hip fracture, right: s/p R anterior total hip arthroplasty for fracture -clinda x 24 -DVT ppx: SCDs, TEDs, 81mg ASA BID -WBAT RLE -PT/OT -PO XR demonstrates well aligned well fixed prothesis without fracture/dislocation -am labs -DC planning Admission and Anticipated Discharge Date Admission Date: April 24, 2020 Subjective Post Operative Progress Note Patient seen sitting up in bed eating dinner, comfortable, denies complaints, pain well controlled, no acute issues. Review of Systems Review of Systems: All systems reviewed & are unremarkable except as noted in HPI & below Constitutional: as per Subjective / HPI Physical Exam Physical Exam: RLE NVSI +EHL/FHL/TA/GS SILT grossly, +2 DP pulse, compartments soft NT, dressing cdi. Constitutional: WD/WN, vitals as above Results & Data ([facility]) Vital Signs (Past 12 Hours) Vital Signs Temp Pulse Pulse Pulse Resp BP BP 04/25/20 18:20 37.3 C 84 18 95/58 L 113/71 04/25/20 17:25 37 C 92 H 18 114/71 04/25/20 16:50 37.1 C 83 18 109/69 04/25/20 16:20 36.7 C 87 18 107/69 04/25/20 16:15 88 14 120/58 L 04/25/20 16:00 79 13 112/59 L 04/25/20 15:45 74 12 121/63 04/25/20 15:35 36.4 C L 79 16 129/67 04/25/20 15:25 90 13 131/72 04/25/20 15:15 87 12 140/75 04/25/20 15:05 87 15 130/72 04/25/20 14:59 36.7 C 100 H 15 131/71 04/25/20 11:37 37.0 C 90 16 137/74 04/25/20 07:42 37 C 88 18 137/78 Pulse Ox 04/25/20 18:20 93 04/25/20 17:25 98 04/25/20 16:50 98 04/25/20 16:20 96 04/25/20 16:15 97 04/25/20 16:00 97 04/25/20 15:45 98 04/25/20 15:35 94 04/25/20 15:25 94 04/25/20 15:15 100 04/25/20 15:05 100 04/25/20 14:59 100 04/25/20 11:37 92 04/25/20 07:42 90 (1) Hip fracture, right Encounter type: initial encounter Fracture type: closed Qualified Code(s): S72.001A - Fracture of unspecified part of neck of right femur, initial encounter for closed fracture
[2020-04-25] MEDS: CLINDAMYCIN 900 MG in DEXTROSE 5% 50 ML IV SCH (19:49)
[2020-04-25] MEDS: SENNA 8.6 MG TAB PO SCH (19:50)
[2020-04-25] MEDS: PRAVASTATIN SOD 10 MG TAB PO SCH (19:50)
[2020-04-25] MEDS: DOCUSATE SODIUM 100 MG CAP PO SCH (19:51)
[2020-04-25] MEDS: DOCUSATE SODIUM/SENNA 50/8.6MG TAB PO SCH (19:53)
[2020-04-25] MEDS: ACETAMINOPHEN 500 MG TAB PO SCH (21:39)
[2020-04-26] MEDS: SODIUM CHLORIDE 0.9% 1000ML 1,000 ML IV SCH (04:40)
[2020-04-26] MEDS: CLINDAMYCIN 900 MG in DEXTROSE 5% 50 ML IV SCH (04:41)
[2020-04-26] MEDS: KETOROLAC TROMETHAMINE 15 MG/ML VIAL IV SCH ×4 (05:52→23:25)
[2020-04-26] MEDS: ACETAMINOPHEN 500 MG TAB PO SCH ×3 (05:53→21:48)
[2020-04-26] MEDS ORDERED: ROPIVACAINE 0.5% HCL/PF 150 MG, BUPIVACAINE 0.5% MPF 30 ML, EPINEPHrine 0.15 MG, Ketoro... INFIL SCH (06:00)
[2020-04-26 06:23] LABS: Eosinophils # (auto) 0.06 K/uL (0-0.5); Eosinophils % (auto) 0.6 %; Hematocrit (blood only) 34.9 % (37-47); Hemoglobin 12.7 g/dL (12.0-16.0); Immature Granulocytes # (auto) 0.03 K/uL (0.00-0.02); Immature Granulocytes % (auto) 0.3 %; Lymphocytes # (auto) 0.98 K/uL (1.2-3.4); Lymphocytes % (auto) 9.9 %; Mean Corpuscular Hgb Conc 36.4 g/dL (32-36); Mean Corpuscular Volume 90.6 fL (80-100); Mean Platelet Volume 9.4 fL (7.4-10.4); Monocytes # (auto) 0.77 K/uL (0.11-0.59); Monocytes % (auto) 7.8 %; Neutrophils # (auto) 8.01 K/uL (1.4-6.5); Neutrophils % (auto) 81.4 %; Platelet Count 188 K/uL (130-400); RDW Coefficient of Variation 12.2 % (11.5-14.5); RDW Standard Deviation 40.2 fL (36.4-46.3); Red Blood Count 3.85 M/uL (4.2-5.4); White Blood Count 9.85 K/uL (4.8-10.8)
[2020-04-26 06:57] LABS: BUN Creatinine Ratio 21.8 (10-20); Calcium 7.9 mg/dl (8.5-10.1); Creatinine Clr Calc Pharmacy 173.5 ml/min; Est GFR (African American) 135.8; Est GFR (Non-African American) 117.2; Potassium 3.9 mmol/L (3.5-5.1)
--- NOTE | 2020-04-26 07:46 | Orthopedic Progress Note ---
Date of Service April 26, 2020 Assessment & Plan (1) Hip fracture, right: s/p R anterior total hip arthroplasty for fracture POD#1 -clinda x 24 -DVT ppx: SCDs, TEDs, 81mg ASA BID -WBAT RLE -PT/OT -PO XR demonstrates well aligned well fixed prothesis without fracture/dislocation -am labs - as above, hgb 12.7 -DC planning Admission and Anticipated Discharge Date Admission Date: April 24, 2020 Subjective Post Operative Progress Note Patient seen laying in bed, comfortable, denies complaints, pain well controlled, no acute issues. Denies F/C/N/V/SOB/CP. Review of Systems Review of Systems: All systems reviewed & are unremarkable except as noted in HPI & below Constitutional: as per Subjective / HPI Physical Exam Physical Exam: RLE NVSI +EHL/FHL/TA/GS SILT grossly, +2 DP pulse, compartments soft NT, dressing cdi. Constitutional: WD/WN, vitals as above Results & Data ([facility]) Vital Signs (Past 12 Hours) Vital Signs Temp Pulse Resp BP BP Pulse Ox Pulse Ox 04/26/20 07:16 36.6 C 69 16 116/72 92 04/26/20 06:09 123/68 04/26/20 04:44 93 04/26/20 03:35 120/65 04/26/20 03:03 36.6 C 75 14 91/55 L 90 04/25/20 23:45 90 04/25/20 23:36 36.5 C 79 12 95/61 L 90 Laboratory Results 04/26/20 04/26/20 04/25/20 Range/Units 05:24 05:24 20:35 WBC 9.85 (4.8-10.8) K/uL RBC 3.85 L (4.2-5.4) M/uL Hgb 12.7 (12.0-16.0) g/dL Hct 34.9 L (37-47) % MCV 90.6 (80-100) fL MCH 33.0 (25-34) pg MCHC 36.4 H (32-36) g/dL RDW Std Deviation 40.2 (36.4-46.3) fL RDW Coeff of Tamela 12.2 (11.5-14.5) % Plt Count 188 (130-400) K/uL MPV 9.4 (7.4-10.4) fL Immature Gran % (Auto) 0.3 % Neut % (Auto) 81.4 % Lymph % (Auto) 9.9 % [place] % (Auto) 7.8 % Eos % (Auto) 0.6 % Baso % (Auto) 0.0 % Neut # (Auto) 8.01 H (1.4-6.5) K/uL Lymph # (Auto) 0.98 L (1.2-3.4) K/uL [place] # (Auto) 0.77 H (0.11-0.59) K/uL Eos # (Auto) 0.06 (0-0.5) K/uL Baso # (Auto) 0.00 (0-0.2) K/uL Immature Gran # (Auto) 0.03 H (0.00-0.02) K/uL Sodium 138 (136-145) mmol/L Potassium 3.9 (3.5-5.1) mmol/L Chloride 106 (98-107) mmol/L Carbon Dioxide 26 (21-32) mmol/L Anion Gap 6.0 (3-11) BUN 8 (7-18) mg/dl Creatinine 0.36 L (0.6-1.2) mg/dl Est Cr Clr Drug Dosing 173.5 ml/min Est GFR ( Amer) 135.8 Est GFR (Non-Af Amer) 117.2 BUN/Creatinine Ratio 21.8 H (10-20) Glucose 191 H (70-99) mg/dl POC Glucose 242 H (70-99) mg/dl Calcium 7.9 L (8.5-10.1) mg/dl 04/25/20 04/25/20 04/25/20 Range/Units 17:02 15:01 11:53 WBC (4.8-10.8) K/uL RBC (4.2-5.4) M/uL Hgb (12.0-16.0) g/dL Hct (37-47) % MCV (80-100) fL MCH (25-34) pg MCHC (32-36) g/dL RDW Std Deviation (36.4-46.3) fL RDW Coeff of Tamela (11.5-14.5) % Plt Count (130-400) K/uL MPV (7.4-10.4) fL Immature Gran % (Auto) % Neut % (Auto) % Lymph % (Auto) % [place] % (Auto) % Eos % (Auto) % Baso % (Auto) % Neut # (Auto) (1.4-6.5) K/uL Lymph # (Auto) (1.2-3.4) K/uL [place] # (Auto) (0.11-0.59) K/uL Eos # (Auto) (0-0.5) K/uL Baso # (Auto) (0-0.2) K/uL Immature Gran # (Auto) (0.00-0.02) K/uL Sodium (136-145) mmol/L Potassium (3.5-5.1) mmol/L Chloride (98-107) mmol/L Carbon Dioxide (21-32) mmol/L Anion Gap (3-11) BUN (7-18) mg/dl Creatinine (0.6-1.2) mg/dl Est Cr Clr Drug Dosing ml/min Est GFR ( Amer) Est GFR (Non-Af Amer) BUN/Creatinine Ratio (10-20) Glucose (70-99) mg/dl POC Glucose 223 H 149 H 140 H (70-99) mg/dl Calcium (8.5-10.1) mg/dl 04/25/20 Range/Units 07:48 WBC (4.8-10.8) K/uL RBC (4.2-5.4) M/uL Hgb (12.0-16.0) g/dL Hct (37-47) % MCV (80-100) fL MCH (25-34) pg MCHC (32-36) g/dL RDW Std Deviation (36.4-46.3) fL RDW Coeff of Tamela (11.5-14.5) % Plt Count (130-400) K/uL MPV (7.4-10.4) fL Immature Gran % (Auto) % Neut % (Auto) % Lymph % (Auto) % [place] % (Auto) % Eos % (Auto) % Baso % (Auto) % Neut # (Auto) (1.4-6.5) K/uL Lymph # (Auto) (1.2-3.4) K/uL [place] # (Auto) (0.11-0.59) K/uL Eos # (Auto) (0-0.5) K/uL Baso # (Auto) (0-0.2) K/uL Immature Gran # (Auto) (0.00-0.02) K/uL Sodium (136-145) mmol/L Potassium (3.5-5.1) mmol/L Chloride (98-107) mmol/L Carbon Dioxide (21-32) mmol/L Anion Gap (3-11) BUN (7-18) mg/dl Creatinine (0.6-1.2) mg/dl Est Cr Clr Drug Dosing ml/min Est GFR ( Amer) Est GFR (Non-Af Amer) BUN/Creatinine Ratio (10-20) Glucose (70-99) mg/dl POC Glucose 139 H (70-99) mg/dl Calcium (8.5-10.1) mg/dl (1) Hip fracture, right Encounter type: initial encounter Fracture type: closed Qualified Code(s): S72.001A - Fracture of unspecified part of neck of right femur, initial encounter for closed fracture
[2020-04-26] MEDS ORDERED: MULTIVITAMIN TAB PO SCH (09:00)
[2020-04-26] MEDS: DOCUSATE SODIUM 100 MG CAP PO SCH ×2 (09:02→20:31)
[2020-04-26] MEDS: ESCITALOPRAM OXALATE 10 MG TAB PO SCH (09:03)
[2020-04-26] MEDS: ASPIRIN 81 MG ECTAB PO SCH ×2 (09:03→20:31)
[2020-04-26] MEDS: CHOLECALCIFEROL 1,000 UNITS 25 MCG TAB PO SCH (09:03)
[2020-04-26] MEDS: INSULIN ASPART 100 UNITS/ML 3 ML PEN SC SCH ×4 (09:06→20:43)
[2020-04-26 09:34] LABS: Estimated Average Glucose 252 mg/dl; Hemoglobin A1C 10.4 % (4.5-5.6)
--- NOTE | 2020-04-26 17:25 | Hospitalist Progress Note ---
Date of Service April 26, 2020 Assessment & Plan (1) Fall: (2) Hip fracture, right: 60-year-old female with PMH of DM II, hyperlipidemia, fibromyalgia, history of angioedema in the past and other medical problems listed below who presents after a fall at work this morning and was found to have an impacted right femoral neck fracture. s/p R anterior total hip arthroplasty for fracture performed on 04/25 No post complication Pain Control Avoid NSAIDS due to reported allergy per [employer] note and morphine due to pruritus reported to it on this admission Continue PT/OT Fall precaution (3) Diabetes mellitus, type II: A1c 8.5 in September 2019. Hold home agents BS elevated while in the hospital Will add Lantus 8 units BID Continue ISS per protocol Continue monitor BS (4) History of angioedema: History of angioedema with lisinopril and Trulicity. Most recent admission in December 2018 with angioedema in reaction to Trulicity requiring intubation. Epipen and Benadryl continued from home medication list (5) HLD (hyperlipidemia): Continue statin (6) Anxiety: Continue SSRI. Ativan PRN but rarely uses DVT Ppx: SCDs for now Code status: FULL CODE Admission and Anticipated Discharge Date Admission Date: April 24, 2020 Subjective Pt was seen and examined Sitting in chair with no distress Pt was using a walker to ambulate in the hallway with nursing care partner She said that the pain is minimal She is planning to go home instead of rehab on discharge She said that her daughter is coming from [place] to help her Denies any chest pain, palpitation and SOB Physical Exam Physical Exam: General- No acute distress Head- atraumatic Eyes- PERRL, EOMI, ENT- oropharynx clear Neck- supple, no JVD Lungs- clear to auscultation Heart- regular rhythm; no murmur Abdomen- normal bowel sounds, soft, nontender Extremities- no calf tenderness Neuro- alert, oriented x 3; PERRL, EOMI; no facial palsy; no dysarthria Skin- warm & dry Results & Data Results & Data ([facility]) Vital Signs (Past 12 Hours) Vital Signs Temp Pulse Resp BP BP Pulse Ox 04/26/20 15:13 36.8 C 83 18 107/63 94 04/26/20 07:16 36.6 C 69 16 116/72 92 04/26/20 06:09 123/68 (1) Hip fracture, right Encounter type: initial encounter Fracture type: closed Qualified Code(s): S72.001A - Fracture of unspecified part of neck of right femur, initial encounter for closed fracture (2) Fall Encounter type: initial encounter Qualified Code(s): W19.XXXA - Unspecified fall, initial encounter
[2020-04-26] MEDS: MULTIVITAMIN TAB PO SCH (18:05)
[2020-04-26] MEDS: PRAVASTATIN SOD 10 MG TAB PO SCH (20:31)
[2020-04-26] MEDS: SENNA 8.6 MG TAB PO SCH (20:31)
[2020-04-26] MEDS: DOCUSATE SODIUM/SENNA 50/8.6MG TAB PO SCH (20:32)
[2020-04-26] MEDS: INSULIN GLARGINE SOLOSTAR 100 UNITS/ML 3 ML PEN SC SCH (20:43)
[2020-04-27] MEDS: OXYCODONE HCL IR 5 MG TAB (IMMEDIATE RELEASE) PO PRN ×2 (02:39→08:41)
[2020-04-27 06:22] LABS: Basophils # (auto) 0.02 K/uL (0-0.2); Basophils % (auto) 0.2 %; Eosinophils # (auto) 0.34 K/uL (0-0.5); Eosinophils % (auto) 4.2 %; Hemoglobin 11.5 g/dL (12.0-16.0); Immature Granulocytes # (auto) 0.02 K/uL (0.00-0.02); Immature Granulocytes % (auto) 0.2 %; Lymphocytes # (auto) 1.86 K/uL (1.2-3.4); Lymphocytes % (auto) 22.9 %; Mean Corpuscular Hemoglobin 31.5 pg (25-34); Mean Corpuscular Hgb Conc 34.8 g/dL (32-36); Mean Corpuscular Volume 90.4 fL (80-100); Mean Platelet Volume 9.2 fL (7.4-10.4); Monocytes # (auto) 0.78 K/uL (0.11-0.59); Monocytes % (auto) 9.6 %; Neutrophils # (auto) 5.09 K/uL (1.4-6.5); Neutrophils % (auto) 62.9 %; Platelet Count 199 K/uL (130-400); RDW Coefficient of Variation 12.4 % (11.5-14.5); RDW Standard Deviation 40.7 fL (36.4-46.3); Red Blood Count 3.65 M/uL (4.2-5.4); White Blood Count 8.11 K/uL (4.8-10.8)
[2020-04-27] MEDS: KETOROLAC TROMETHAMINE 15 MG/ML VIAL IV SCH ×2 (06:23→12:44)
[2020-04-27] MEDS: ACETAMINOPHEN 500 MG TAB PO SCH ×2 (06:23→13:47)
[2020-04-27] MEDS: ESCITALOPRAM OXALATE 10 MG TAB PO SCH (07:44)
[2020-04-27] MEDS: DOCUSATE SODIUM 100 MG CAP PO SCH (07:45)
[2020-04-27] MEDS: ASPIRIN 81 MG ECTAB PO SCH (07:45)
[2020-04-27] MEDS: CHOLECALCIFEROL 1,000 UNITS 25 MCG TAB PO SCH (07:45)
[2020-04-27] MEDS: INSULIN GLARGINE SOLOSTAR 100 UNITS/ML 3 ML PEN SC SCH (07:51)
[2020-04-27] MEDS: INSULIN ASPART 100 UNITS/ML 3 ML PEN SC SCH ×2 (07:51→12:46)
[2020-04-27] MEDS ORDERED: INSULIN GLARGINE SOLOSTAR 100 UNITS/ML 3 ML PEN SC STA (08:24)
--- NOTE | 2020-04-27 08:24 | Orthopedic Progress Note ---
Date of Service April 27, 2020 Assessment & Plan (1) Hip fracture, right: s/p R anterior total hip arthroplasty for fracture POD#1 -DVT ppx: SCDs, TEDs, 81mg ASA BID -WBAT RLE -PT/OT -am labs - as above, hgb 11.5 -DC planning - services upon discharge Admission and Anticipated Discharge Date Admission Date: April 24, 2020 Supervising Physician Co-Signing Physician Notes Patient seen and examined, agree with above assessment and plan. Subjective POD 2 s/p Right Anterior DEBORAH Awake, alert. Had some pain during the night but better now. No other complaints. Denies SOB,CP,LH. Planning to go home today. Physical Exam Physical Exam: Prevena dressing intact. Scant drainage noted in collection unit. No erythema around the dressing. Thigh soft,NT. Calves soft,NT. NV intact. Hip appears located. Results & Data ([facility]) Vital Signs (Past 12 Hours) Vital Signs Temp Pulse Resp BP Pulse Ox Pulse Ox 04/27/20 06:58 36.8 C 77 16 101/65 94 04/27/20 01:18 96 04/26/20 23:19 36.6 C 75 16 111/66 94 (1) Hip fracture, right Encounter type: initial encounter Fracture type: closed Qualified Code(s): S72.001A - Fracture of unspecified part of neck of right femur, initial encounter for closed fracture
[2020-04-27] MEDS ORDERED: TRAMADOL HCL 50 MG TABLET PO PRN (14:50)
--- NOTE | 2020-04-27 14:50 | Hospitalist Progress Note ---
Date of Service April 27, 2020 Assessment & Plan (1) Fall: (2) Hip fracture, right: 60-year-old female with PMH of DM II, hyperlipidemia, fibromyalgia, history of angioedema in the past and other medical problems listed below who presents after a fall at work this morning and was found to have an impacted right femoral neck fracture. s/p R anterior total hip arthroplasty for fracture performed on 04/25 No post complication Pt said that after taking the oxycodone, she was itchy in her nose and improves with Benadryl She would like to try the tramadol instead for the pain Avoid NSAIDS due to reported allergy per Preventive Medicine Officer note and morphine due to pruritus reported to it on this admission Continue PT/OT Fall precaution Ok from ortho standpoint to discharge home (3) Diabetes mellitus, type II: Most recent Hba1c 10.5 on 05/04 Hold home agents BS elevated while in the hospital ( Pt said that her BS usually runs in the 200's at home) On Lantus 10 units BID while in the hospital Pt said that she was out of the Victoza for months, recently resumed it 3 weeks ago Discussed with her about to discharge on insulin since her BS has been elevated, pt was thinking about family living educator checked for coverage, her copay will only be $20. will readdress to discharge on Lantus since it is affordable Agreed to start the lantus. case discussed with pharmacy that recommended to continue the Victoza with the Lantus Will start on Lantus 10units daily Continue monitor BS (4) History of angioedema: History of angioedema with lisinopril and Trulicity. Most recent admission in December 2018 with angioedema in reaction to Trulicity requiring intubation. Epipen and Benadryl continued from home medication list (5) HLD (hyperlipidemia): Continue statin (6) Anxiety: Continue SSRI. Ativan PRN but rarely uses DVT Ppx: SCDs for now Code status: FULL CODE Admission and Anticipated Discharge Date Admission Date: April 24, 2020 Subjective Pt was seen and examined. Sitting in chair with no distress Pt said that she had some pain this morning after walking 3 laps in the hallway Denies any chest pain, palpitation, dizziness and SOB Physical Exam Physical Exam: General- No acute distress Head- atraumatic Eyes- PERRL, EOMI, ENT- oropharynx clear Neck- supple, no JVD Lungs- clear to auscultation Heart- regular rhythm; no murmur Abdomen- normal bowel sounds, soft, nontender Extremities- no calf tenderness, BRUNA drain in R Hip Neuro- alert, oriented x 3; PERRL, EOMI; no facial palsy; no dysarthria Skin- warm & dry Results & Data Results & Data ([facility]) Vital Signs (Past 12 Hours) Vital Signs Temp Pulse Resp BP Pulse Ox 04/27/20 06:58 36.8 C 77 16 101/65 94 (1) Hip fracture, right Encounter type: initial encounter Fracture type: closed Qualified Code(s): S72.001A - Fracture of unspecified part of neck of right femur, initial encounter for closed fracture (2) Fall Encounter type: initial encounter Qualified Code(s): W19.XXXA - Unspecified fall, initial encounter
[2020-04-27] MEDS ORDERED: CeleBREX 200 MG CAP PO SCH (21:00)
[2020-04-27] MEDS ORDERED: INSULIN GLARGINE SOLOSTAR 100 UNITS/ML 3 ML PEN SC SCH (21:00)
--- NOTE | 2020-04-28 09:26 | Discharge Summary ---
Date of Service April 27, 2020 Admission HPI Per Admitting Provider This is a 60-year-old female with PMH of DM II, hyperlipidemia, fibromyalgia, history of angioedema in the past and other medical problems listed below who presents after a fall at work this morning. Patient was walking into work and was opening a heavy glass door while carrying things when she lost her balance and fell backwards. Experienced immediate pain in right upper leg that is described as sharp pain on the front of her right thigh with radiation into groin. Denies any numbness or paresthesias of distal extremity. Denies any head trauma or loss of consciousness. Came to ED for further evaluation. C urrently not experiencing pain at rest. Denies any fever, chills, lightheadedness, visual changes, chest pain or shortness of breath, abdominal pain, nausea, vomiting, dysuria, diarrhea or constipation. Pain with movement initially 10/10 but now reduced to 5/10 after morphine. History of angioedema with lisinopril and Trulicity. Admission Exam Per Admitting Provider General Appearance: WD/WN, vitals as above, NAD, sitting up in bed, pleasant, conversing easily Head: normocephalic, atraumatic Eyes: normal inspection, PERRL, conjunctivae normal, anicteric sclerae ENT: external ear and nose normal, oropharynx normal Neck: trachea midline, no thyromegaly normal visual inspection Respiratory: normal respiratory effort, lungs clear to auscultation, no wheeze, rales, rhonchi Cardiovascular: regular rate, rhythm, no murmur, normal peripheral pulses. Vessels: no JVD Chest: normal inspection of chest Abdomen/GI: normal bowel sounds, soft, nontender, no hepatosplenomegaly Extremities/Musculoskeletal: R anterior thigh and groin area TT. Movement limited 2/2 pain. No deformities visualized. Distal extremities NVI. No cyanosis or clubbing Neurologic: PERRL, EOMI, accommodation nl, no face palsy, no dysarthria, CN's II-XI intact bilaterally and moves all extremities Psychiatric: A+Ox3, euthymic affect Skin: no rashes, normal color, warm/dry Principal Diagnosis (1) Fall: (2) Hip fracture, right: (3) Diabetes mellitus, type II: (4) History of angioedema: (5) HLD (hyperlipidemia): (6) Anxiety: Discharge Exam General- No acute distress Head- atraumatic Eyes- PERRL, EOMI, ENT- oropharynx clear Neck- supple, no JVD Lungs- clear to auscultation Heart- regular rhythm; no murmur Abdomen- normal bowel sounds, soft, nontender Extremities- no calf tenderness, BRUNA drain in R Hip Neuro- alert, oriented x 3; PERRL, EOMI; no facial palsy; no dysarthria Skin- warm & dry Discharge Data Allergies Allergy/AdvReac Type Severity Reaction Status Date / Time ciprofloxacin [From Cipro] Allergy Severe SEE COMMENT Verified 04/24/20 07:38 dulaglutide [From Trulicity] Allergy Severe ANGIOEDEMA Verified 04/24/20 07:38 lisinopril Allergy Severe SHORTNESS Verified 04/24/20 07:38 OF BREATH nitrofurantoin Allergy Severe SEE COMMENT Verified 04/24/20 07:38 [From Macrobid] morphine Allergy Mild pruritus Verified 04/24/20 16:09 MAXI Inhibitors Allergy Unknown Unknown Verified 04/24/20 07:38 amoxicillin Allergy Unknown Unknown Verified 04/24/20 07:38 aripiprazole Allergy Unknown unknown Verified 04/24/20 07:38 cefuroxime Allergy Unknown . Verified 04/24/20 07:38 clavulanic acid Allergy Unknown . Verified 04/24/20 07:38 paroxetine Allergy Unknown . Verified 04/24/20 07:38 Penicillins Allergy Unknown Unknown Verified 04/24/20 07:38 pravastatin [From Pravachol] Allergy Unknown Unknown Verified 04/24/20 07:38 Sulfa (Sulfonamide Allergy Unknown Unknown Verified 04/24/20 07:38 Antibiotics) bupropion [From Wellbutrin] Allergy Unknown Verified 04/24/20 07:38 Cephalosporins Allergy Unknown Verified 04/24/20 07:38 lamotrigine Allergy Unknown Verified 04/24/20 07:38 ANTIHISTAMINES Allergy Intermediate TACHYCARDIA Uncoded 04/24/20 07:38 Consultations 04/24/20 08:35 ED Decision to Admit Stat 04/24/20 10:34 Consult Anesthesiology Routine Consult Case Management - Discharge Planning Routine Consult Orthopedic Surgery Routine 04/26/20 08:00 Consult Case Management - Discharge Planning Routine Procedures Performed Operation Date: 04/25/20 12:10 Actual Procedures p Right Anterior Total Hip Arthroplasty(Right) - Trent Ramos DO Ordered Studies 04/24/20 11:44 CT hip RT wo con Urgent 04/25/20 12:10 FL fluoroscopy <1hr Routine FL hip RT 1V Routine XR hip 1V RT w pelvis CLINICAL HISTORY: Postoperative evaluation. COMPARISON: Right hip radiographs and CT of the right hip April 24, 2020. FINDINGS: Alignment of the total right hip arthroplasty is anatomic. There is an acetabular screw. There are skin milla. No unexpected radiopaque foreign bodies are noted. IMPRESSION: Expected findings following total right hip arthroplasty. ACT 112: Negative or not required by law. Electronically signed by: Mitul Carr M.D. 04/25/2020 3:29 PM Dictated: 04/25/20 1528 Transcribed: 04/25/20 1528 FL hip RT 1V CLINICAL HISTORY: RT ANTERIOR TOTAL COMPARISON STUDY: None FLUOROSCOPY TIME: 20 seconds NUMBER OF FLUOROSCOPIC IMAGES: 2 FINDINGS: Image intensifier support for right hip total arthroplasty IMPRESSION: Image intensifier support for a total right hip arthroplasty. ACT 112: Negative or not required by law. The above report was generated using voice recognition software. It may contain grammatical, syntax or spelling errors. Electronically signed by: Dionisio Banuelos M.D. 04/25/2020 2:50 PM Dictated: 04/25/20 1449 Transcribed: 04/25/[address] hip RT wo con CT DOSE: 451.95 mGy.cm CLINICAL HISTORY: Right hip pain status post trauma. Fracture. Surgical planning study. TECHNIQUE: Helical images were acquired in the transverse plane. Sagittal and coronal reformatted images were acquired. In addition 3-dimensional reconstructions were obtained. A dose lowering technique was utilized adhering to the principles of ALARA. COMPARISON STUDY: X-ray study dated 04/24/2020 FINDINGS: There is an indwelling Goetz catheter. There is no evidence of pathologic adenopathy. There is a mildly displaced and angulated oblique fracture of the femoral neck. Laterally, the fracture line begins the subcapital portion of the femoral neck and medially it extends to the mid femoral neck level. There is no intertrochanteric involvement. IMPRESSION: Mildly displaced angulated femoral neck fracture with no evidence of intertrochanteric extension. ACT 112: Negative or not required by law. Electronically signed by: Primo Ugalde M.D. 04/24/2020 1:13 PM Dictated: 04/24/20 1308 Transcribed: 04/24/20 1313 XR chest 1V portable CLINICAL HISTORY: hip fracture trauma. Pain. COMPARISON STUDY: 10/16/2019 FINDINGS: The bones soft tissues and hemidiaphragms are normal. The cardiomediastinal silhouette is normal. The lungs are clear. The pulmonary vasculature is normal. IMPRESSION: Negative chest. ACT 112: Negative or not required by law. The above report was generated using voice recognition software. It may contain grammatical, syntax or spelling errors. Electronically signed by: Dionisio Banuelos M.D. 04/24/2020 8:58 AM Dictated: 04/24/2058 Transcribed: 04/24/2058 XR femur RT 2V routine, XR hip RT 2V w pelvis CLINICAL HISTORY: Fall. Right hip pain. COMPARISON STUDY: None. FINDINGS: There is an impacted and slightly angulated right femoral neck fracture. No dislocation. The visualized pelvic bones, left hip, and mid to distal right femur are intact. IMPRESSION: Impacted right femoral neck fracture. ACT 112: Negative or not required by law. Electronically signed by: Rohith Duarte M.D. 04/24/2020 7:57 AM Dictated: 04/24/20 0756 Transcribed: 04/24/20 0756 XR femur RT 2V routine, XR hip RT 2V w pelvis CLINICAL HISTORY: Fall. Right hip pain. COMPARISON STUDY: None. FINDINGS: There is an impacted and slightly angulated right femoral neck fracture. No dislocation. The visualized pelvic bones, left hip, and mid to distal right femur are intact. IMPRESSION: Impacted right femoral neck fracture. ACT 112: Negative or not required by law. Electronically signed by: Rohith Duarte M.D. 04/24/2020 7:57 AM Dictated: 04/24/20 0756 Transcribed: 04/24/20 0756 Diabetes Follow up Diabetes Follow-up Needed for HgbA1c >9% Hospital Course (1) Fall: (2) Hip fracture, right: 60-year-old female with PMH of DM II, hyperlipidemia, fibromyalgia, history of angioedema in the past and other medical problems listed below who presents after a fall at work this morning and was found to have an impacted right femoral neck fracture. s/p R anterior total hip arthroplasty for fracture performed on 04/25 No post complication Pt said that after taking the oxycodone, she was itchy in her nose and improves with Benadryl She would like to try the tramadol instead for the pain Avoid NSAIDS due to reported allergy per Change Room Attendant note and morphine due to pruritus reported to it on this admission Continue PT/OT Fall precaution Ok from ortho standpoint to discharge home (3) Diabetes mellitus, type II: Most recent Hba1c 10.5 on 05/04 Hold home agents BS elevated while in the hospital ( Pt said that her BS usually runs in the 200's at home) On Lantus 10 units BID while in the hospital Pt said that she was out of the Victoza for months, recently resumed it 3 weeks ago Discussed with her about to discharge on insulin since her BS has been elevated, pt was thinking about conservation educator checked for coverage, her copay will only be $20. will readdress to discharge on Lantus since it is affordable Agreed to start the lantus. case discussed with pharmacy that recommended to continue the Victoza with the Lantus Will start on Lantus 10units daily Continue monitor BS (4) History of angioedema: History of angioedema with lisinopril and Trulicity. Most recent admission in December 2018 with angioedema in reaction to Trulicity requiring intubation. Epipen and Benadryl continued from home medication list (5) HLD (hyperlipidemia): Continue statin (6) Anxiety: Continue SSRI. Ativan PRN but rarely uses DVT Ppx: SCDs for now Code status: FULL CODE Total Time Total Time Spent Total Time Spent (In Minutes): 35 minutes Total Time Includes: Examination of the Patient, Discharge Planning, Medication Reconciliation, Communication With Other Providers and Other Discharge Plan Discharge Items Patient Disposition: Home - Home Health Services Reason For Visit: R FEMORAL NECK FRACTURE Discharge Diagnosis: Right Femoral Neck Fracture Activity: Per Instructions section Weightbearing: Right weightbearing Weightbearing Comment: as tolerated with walker Non-emergency contact: Surgeon Call non-emergency contact if: your pain is not controlled, your temperature is above 101.5, your wound has increased redness and your wound has increased drainage Follow-up/Referrals: Aixa Maher DO [Primary Care Provider] - 05/01/20 12:00 pm (05/01/2020 12:00 PM Provider Aixa Maher DO Department [facility] ) Diet: Carb Consistent or DM2 Addtl Attending Provider Instructions: You have an appointment with the Diabetic Clinic on 05/10/2020 3:00 PM at the [facility] in [facility] Follow up with your primary care provider Dr. Maher on 05/01 @ 12PM Follow up with orthopedic Dr. Ramos in 2 weeks. Please call [facility] at to make a follow-up appointment for Continue physical therapy Continue aspirin 81 mg twice a day for 30days, then daily Continue monitor your blood sugar and bring your blood sugar log at your next appointment with your provider Your physician will adjust your insulin if needs Fall precaution Continue weight bearing as tolerated on right lower extremity Please do not drive or operate any machine after taking the tramadol Please hold the next dose of tramadol if you become lethargy and drowsy ACTIVITY RECOMMENDATIONS: SELF CARE INSTRUCTIONS AFTER TOTAL HIP REPLACEMENT : Direct Anterior Approach Until the incision and soft tissues around your hip have healed, there is a possibility that the hip prosthesis could dislocate. A. Hip flexion ( Up & Down out of chair or steps ) may be difficult. This is normal. B. Numbness in front of the thigh is also normal for a few weeks. C. Use hand rails when walking on stairs. D. Wear low heeled shoes with non-slip soles. E. Be sure that your floors are free of things that could trip you - throw rugs, electrical cords, small objects. Avoid wet and waxed floors, especially with crutches and canes. F. Try to walk several times a day with rest periods between. G. Continue with all the exercises taught to you in the hospital. Again, make walking a part of your daily routine. SPECIAL CARE INSTRUCTIONS: VERY IMPORTANT TO READ AND REVIEW A. You may still be at risk for phlebitis and blood clots. 1. Wear surgical stockings (MAGAN hose) for 2 weeks after surgery to improve circulation and reduce swelling. 2. Take Aspirin 81mg twice daily for 4 weeks or as directed by your doctor. This is your blood thinner. 3. High risk patients may be prescribed a stronger blood thinner if necessary. 4. If you are on Coumadin normally, your family doctor/cash shortage investigator should monitor your blood work. Expect a phone call the day of or the day after bloodwork is drawn to adjust your dosage. B. You must take antibiotics before having dental work, bladder, bowel and other surgery. Your doctor will provide you with a permanent card to carry describing precautions. C. Call [facility] if you have a fever, redness or swelling around the incision, cloudy drainage from incision, or sudden increase in pain in your hip, not relieved by your regular pain medication. D. Please call the office at if you have any concerns or questions about your operation or recovery. * YOU MAY SHOWER, NO TUB BATHS UNTIL CLEARED BY YOUR DOCTOR. - Keep an extra close eye on the top portion of your incision. Be sure to keep clean & dry. * WEAR MAGAN HOSE 20 HOURS PER DAY FOR 2 WEEKS. * YOU MAY PROGRESS FROM A WALKER, TO A CANE, TO INDEPENDENT AT YOUR OWN PACE. * MOST PATIENTS WILL HAVE HOME NURSING FOR THERAPY. IF YOU DECIDE TO DO OUTPATIENT PHYSICAL THERAPY, PLEASE SCHEDULE THIS 3 TIMES PER WEEK. *PREVENA incisional vac is a special dressing covering your incision. This dressing provides a sterile dry environment while you are healing. The dressing is to be left in place for 7 days post-operatively. Your home nurse or surgeon will remove. If you develop any redness or blisters or have any questions notify your surgeon immediately. FOLLOW UP VISIT: If appointment is not already scheduled: Please call [facility] to make a follow-up appointment for 2 weeks after your surgery with Dr. Ramos at . Pending Studies at Discharge: No Stand-Alone Forms: My [facility], Opioid Pain Management Medications and DC Order Prescriptions: New sennosides [Senokot] 8.6 mg Tablet 17.2 mg PO HS Qty: 30 RF: 0 aspirin 81 mg Tablet,Delayed Release (Dr/Ec) 81 mg PO BID 30 Days Qty: 60 RF: 0 acetaminophen 500 mg Tablet 1,000 mg PO Q8 14 Days Qty: 84 RF: 0 Lantus Solostar U-100 Insulin 100 unit/mL (3 mL) insulin pen 10 unit subcut DAILY Qty: 15 RF: 0 tramadol 50 mg Tablet 50 mg PO Q6H PRN (Reason: pain) Qty: 30 RF: 0 Continued pravastatin 10 mg tablet 10 mg PO HS RF: 0 hydroxyzine HCl 25 mg tablet 25 mg PO HS RF: 0 Victoza 3-David 0.6 mg/0.1 mL (18 mg/3 mL) pen injector 1.8 mg SQ QAM RF: 0 cholecalciferol (vitamin D3) [Vitamin D3] 50 mcg (2,000 unit) Tablet 50 mcg PO DAILY RF: 0 escitalopram oxalate 10 mg tablet 10 mg PO QAM RF: 0 epinephrine [EpiPen] 0.3 mg/0.3 mL Auto-Injector 0.3 mg IM Q3H PRN (Reason: Allergic Reaction) RF: 0 metformin 500 mg tablet extended release 24 hr 1,000 mg PO BID RF: 0 lorazepam [Ativan] 0.5 mg tablet 0.5 mg PO DAILY PRN (Reason: anxiety) Qty: 10 RF: 0 multivitamin Tablet 1 tab PO QDD RF: 0 diphenhydramine HCl [Benadryl] 25 mg Capsule 25 mg PO UD PRN (Reason: Allergic Reaction) RF: 0 Discontinued aspirin 81 mg Tablet,Delayed Release (Dr/Ec) 81 mg PO QAM RF: 0 omega 9-mxo-edc-fish oil [Fish Oil] 1,000 mg (120 mg-180 mg) Capsule 1 cap PO QAM RF: 0 Discharge Orders: Discharge Order (Routine); Ordered 04/27/20 Ordered By: Austyn Stanford/Other Patient Handouts: Managing Type 2 Diabetes, Managing Diabetes: The A1C Test Admission Data Admit Date/Time: 04/24/20 09:44 Attending Provider: Austyn Toussaint Admit Provider: Jennyfer Bhakta I. Primary Care Provider: Aixa Maher Other Providers: Jennyfer Bhakta I. ; Justin Means ; Chintan Johnson ; [facility],Home [facility] Other Interventions: Discharge Summary Assessment (RN) Last Done: 04/27/20 17:36
== END 2020-04-27 18:41 | disposition home health service (06) | DRG 470 ==
LOC: ED 06:37 → 3W 09:44 → SUATTDRO 09:44 → 3W 10:09